=== PATIENT | male | born 1935 | race Caucasian/White ===

== ENCOUNTER 2017-04-25 16:38 | Emergency (ER) | payer OTHER ==
[2017-04-25 17:04] VITALS: BP 132/60; PULSE 60; TEMP 97.9; BMI 28.1
--- NOTE | 2017-04-25 17:35 | PDOC ---
History of Present Illness - General Chief Complaint: Revisit, Lab Variance Stated Complaint: PCP SENT Time Seen by Provider: 04/25/17 17:35 - History of Present Illness Initial Comments: 04/25/17 18:03 Mr. Boogie is an 82 yo male w/ pmh of MR, skin cancer, HTN, and cirrhosis ( side effect of humira) presenting with cousin (patient's historian) on direction of PCP (Dr. Keith Hurtado) for evaluation of urinary frequency with known UTI and elevated WBC levels. Per cousin this began 2 weeks ago and the patient was placed on macrobid on 04/13. This was changed to levoquin on 04/15 after no improvement with the addition of flomax. ABX was changed again on 04/18 to Amoxicillin. Mr. Boogie has not taken his ABX today. Dr. Hurtado would like an ESR as well as repeat labs drawn. Mr. Boogie has no other complaints at this time. The patient denies chest pain, shortness of breath, headache and dizziness. Denies fever, chills, nausea, vomit, diarrhea and constipation. Denies dysuria and hematuria. Allergies: NKDA Past History - Past Medical History Allergies/Adverse Reactions: Allergies Allergy/AdvReac Type Severity Reaction Status Date / Time No Known Allergies Allergy Verified 04/25/17 16:57 Home Medications: Ambulatory Orders Hydrochlorothiazide [Hctz -] 25 mg PO DAILY #0 tablet 12/05/11 Nifedipine [Nifedipine ER] 60 mg PO DAILY #0 tab.er.24 12/05/11 Adalimumab [Humira] 20 mg SQ WEEKLY 12/28/13 Atorvastatin Ca [Lipitor] 20 mg PO HS 12/28/13 Amoxicillin - [Amoxicillin 500mg Capsule -] 500 mg PO BID 04/25/17 Potassium Chloride [Klor-Con 10] 30 mcg PO DAILY 04/25/17 Tamsulosin HCl [Flomax] PO 04/25/17 Cancer: Yes (rt leg soft tissue, basal cell) COPD: No HTN: Yes - Suicide/Smoking/Psychosocial Hx Smoking Status: No Smoking History: Never smoked Have you smoked in the past 12 months: No Number of Cigarettes Smoked Daily: 0 Hx Alcohol Use: No Drug/Substance Use Hx: No Substance Use Type: None Hx Substance Use Treatment: No Review of Systems - Review of Systems Comments:: 04/25/17 18:10 GENERAL/CONSTITUTIONAL: No fever or chills. No weakness. HEAD, EYES, EARS, NOSE AND THROAT: No change in vision. No ear pain or discharge. No sore throat. CARDIOVASCULAR: No chest pain or shortness of breath RESPIRATORY: No cough, wheezing, or hemoptysis. GASTROINTESTINAL: No nausea, vomiting, diarrhea or constipation. GENITOURINARY: +Urinary frequency with urgency as described. MUSCULOSKELETAL: No joint or muscle swelling or pain. No neck or back pain. SKIN: No rash NEUROLOGIC: No headache, vertigo, loss of consciousness, or change in strength/ sensation. ENDOCRINE: No increased thirst. No abnormal weight change HEMATOLOGIC/LYMPHATIC: No anemia, easy bleeding, or history of blood clots. ALLERGIC/IMMUNOLOGIC: No hives or skin allergy. *Physical Exam - Vital Signs Last Vital Signs Temp Pulse Resp BP Pulse Ox 97.9 F 60 19 132/60 99 04/25/17 16:58 04/25/17 16:58 04/25/17 16:58 04/25/17 16:58 04/25/17 16:58 - Physical Exam Comments: 04/25/17 18:10 GENERAL: Awake, alert, and fully oriented, in no acute distress HEAD: No signs of trauma, normocephalic, atraumatic EYES: PERRLA, EOMI, sclera anicteric, conjunctiva clear ENT: Auricles normal inspection, hearing grossly normal, nares patent, oropharynx clear without exudates. Moist mucosa NECK: Normal ROM, supple, no lymphadenopathy, JVD, or masses LUNGS: No distress, speaks full sentences, clear to auscultation bilaterally HEART: Regular rate and rhythm, normal S1 and S2, no murmurs, rubs or gallops, peripheral pulses normal and equal bilaterally. ABDOMEN: Soft, nontender, normoactive bowel sounds. No guarding, no rebound. No masses EXTREMITIES: +Erythema and long standing chronic wound noted to RLE at midcalf and below. NEUROLOGICAL: Cranial nerves II through XII grossly intact. Normal speech, normal gait, no focal sensorimotor deficits SKIN: Warm, Dry, normal turgor, no rashes or lesions noted. ED Treatment Course - LABORATORY CBC & Chemistry Diagram: 04/25/17 18:19 04/25/17 18:19 Medical Decision Making - Medical Decision Making 04/25/17 19:20 Mr. Boogie is an 82 yo male w/ pmh as described who presents for repeat labs per PCP. CBC/CMP/CRP/UA taken for evaluation. Patient signed out to KAREN Roger and Dr. Boo for further care *DC/Admit/Observation/Transfer Diagnosis at time of Disposition: Urinary frequency - Discharge Dispostion Disposition: HOME Condition at time of disposition: Stable - Referrals Referrals: Keith Hurtado MD [Primary Care Provider] - Jaiden Guadalupe MD [Staff Physician] - - Patient Instructions Printed Discharge Instructions: Men With Enlarge Prostates Who Self-manage Their Lower Urinary Tract Sympto, DI for Removal of Foreign Body From Skin - Post Discharge Activity
--- NOTE | 2017-04-25 17:58 | PDOC ---
Attending Attestation - Resident Resident Name: [place] - ED Attending Attestation I have performed the following: I have examined & evaluated the patient, The case was reviewed & discussed with the resident, I agree w/resident's findings & plan, Exceptions are as noted - HPI HPI: 04/25/17 17:58 82y M hx of developemental delay from home, recent urinary symptoms including urinary frequency, was treated as possible UTI by PMD presents for repeat labs. Pt has been doing well, denies any abmoinal pain, fever/chills, diarhea, chesg pain, cough, increased leg swelling. pt has a chronic wound on his LLE. GENERAL: The patient is awake, alert, Nontoxic - in no acute distress. HEAD: Normocephalic, atraumatic. EYES: extraocular movements intact, sclera anicteric, conjunctiva clear. ENT: Normal voice, Moist mucous membranes. NECK: Normal range of motion, supple LUNGS: Breath sounds equal, clear to auscultation bilaterally. No wheezes, no rhonchi, no rales. HEART: Regular rate and rhythm, normal S1 and S2 without murmur, rub or gallop. ABDOMEN: Soft, nontender, normoactive bowel sounds. No guarding, no rebound. . No CVA tenderness EXTREMITIES: mild erythema on his L le with 2 ulcers on anterior luzma lateral approx 2x2cm each, no discharge/flcutance/masses, not warm to touch NEUROLOGICAL: No facial assymetry, Normal speech, PSYCH: Normal mood, normal affect. SKIN: Warm, Dry, normal turgor, 04/25/17 19:[address] ross pt has been treated for a UTI has been having labs tredned that are slightly elevated, wbc 12-->15, CRP increased to 42, sent to the ED for reassessment as pt is a poor historian unclera cause of the pts leukocytosis his Legs are erythemadous but do not appear frankly infected as not warm/tender to touch there are a few ulcers that also do not appear acutely infeted, not draining, or foul smelling will obtai xray to r/o underlying osteo case signed out to evening team to fu and dispo the pt cmp and crp pending.
[2017-04-25 18:37] LABS: BASO % 0.9 % (0-2.0); EOS % 0.2 % (0-4.5); HEMATOCRIT 43.1 % (35.4-49); HEMOGLOBIN 14.6 GM/dL (11.7-16.9); LYMPH % 9.1 % (8-40); MCH 29.7 pg (25.7-33.7); MCHC 33.7 g/dl (32.0-35.9); MONO % 5.2 % (3.8-10.2); NEUT % 84.6 % (42.8-82.8); PLATELET COUNT 261 K/MM3 (134-434); RDW 12.7 % (11.9-15.9); WHITE BLOOD COUNT 14.3 K/mm3 (4.0-10.0)
[2017-04-25 18:39] LABS: URINE APPEARANCE SLCLOUDY; URINE BILIRUBIN NEGATIVE (NEGATIVE); URINE BLOOD 1+ (NEGATIVE); URINE COLOR YELLOW; URINE GLUCOSE (UA) NEGATIVE (NEGATIVE); URINE KETONE TRACE (NEGATIVE); URINE LEUK ESTERASE TRACE (NEGATIVE); URINE NITRITE NEGATIVE (NEGATIVE); URINE PROTEIN NEGATIVE (NEGATIVE); URINE UROBILINOGEN NEGATIVE mg/dL (0.2-1.0)
[2017-04-25 18:45] LABS: URINE MUCUS RARE
[2017-04-25 19:19] LABS: ALBUMIN 3.2 g/dl (3.4-5.0); ALK PHOS 94 U/L (45-117); ANION GAP 10 (8-16); BLOOD UREA NITROGEN 26 mg/dL (7-18); CALCIUM 8.4 mg/dL (8.5-10.1); CHLORIDE 100 mmol/L (98-107); CO2 24 mmol/L (21-32); CREATININE 1.1 mg/dL (0.7-1.3); GLUCOSE,RANDOM 119 mg/dL (74-106); POTASSIUM 3.6 mmol/L (3.5-5.1); SGOT/AST 23 U/L (15-37); SGPT/ALT 31 U/L (12-78); SODIUM 134 mmol/L (136-145); TOT PROT 7.1 g/dl (6.4-8.2)
--- NOTE | 2017-04-25 20:09 | PDOC ---
*Physical Exam - Vital Signs Last Vital Signs Temp Pulse Resp BP Pulse Ox 97.9 F 60 19 132/60 99 04/25/17 16:58 04/25/17 16:58 04/25/17 16:58 04/25/17 16:58 04/25/17 16:58 - Physical Exam Comments: 04/25/17 20:02 PCP: Dr. 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 Boogie was sent here by his PMD, Dr. Hurtado for evaluation of urinary frequency 2 weeks without fever, chills, nausea/vomiting, headaches, dizziness, lightheadedness, chest pain, shortness of breath, abd pain, flank pains, hematuria. Patient had blood work times one week ago with a white count of 13,000. Patient had a repeat labs done 4 days ago and was 15,000 therefore he was sent to the emergency department. Patient had routine renal ultrasound 3 days ago and was informed he has an enlarged prostate and was given 2 tabs of Flomax 3 days ago 0.4 mg daily at bedtime. Patient has no complaints at this time. <Vern Roger - Last Filed: 04/25/17 21:29> - Vital Signs Last Vital Signs Temp Pulse Resp BP Pulse Ox 97.9 F 60 19 132/60 99 04/25/17 16:58 04/25/17 16:58 04/25/17 16:58 04/25/17 16:58 04/25/17 16:58 <Payton Boo - Last Filed: 04/25/17 21:36> ED Treatment Course - LABORATORY CBC & Chemistry Diagram: 04/25/17 18:19 04/25/17 18:19 - ADDITIONAL ORDERS Additional order review: Laboratory Results 04/25/17 04/25/17 18:19 18:19 Sodium 134 L Potassium 3.6 Chloride 100 Carbon Dioxide 24 Anion Gap 10 BUN 26 H D Creatinine 1.1 D Creat Clearance w eGFR > 60 Random Glucose 119 H Calcium 8.4 L Total Bilirubin 1.0 AST 23 D ALT 31 D Alkaline Phosphatase 94 D Total Protein 7.1 Albumin 3.2 L Urine Color Yellow Urine Appearance Slcloudy Urine pH 5.0 Ur Specific Aldrich 1.013 Urine Protein Negative Urine Glucose (UA) Negative Urine Ketones Trace H Urine Blood 1+ H Urine Nitrite Negative Urine Bilirubin Negative Urine Urobilinogen Negative Ur Leukocyte Esterase Trace Urine WBC (Auto) 5 Urine RBC (Auto) 12 Urine Mucus Rare 04/25/17 18:19 RBC 4.90 MCV 88.0 MCHC 33.7 RDW 12.7 MPV 8.0 Neutrophils % 84.6 H D Lymphocytes % 9.1 D Monocytes % 5.2 Eosinophils % 0.2 D Basophils % 0.9 - RADIOLOGY Radiology Studies Ordered: Category Date Time Status LEG TIB/FIB-RIGHT [RAD] Stat Radiology 04/25/17 19:58 Ordered <Vern Roger - Last Filed: 04/25/17 21:29> - LABORATORY CBC & Chemistry Diagram: 04/25/17 18:19 04/25/17 18:19 - ADDITIONAL ORDERS Additional order review: Laboratory Results 04/25/17 04/25/17 04/25/17 18:20 18:19 18:19 Sodium 134 L Potassium 3.6 Chloride 100 Carbon Dioxide 24 Anion Gap 10 BUN 26 H D Creatinine 1.1 D Creat Clearance w eGFR > 60 Random Glucose 119 H Calcium 8.4 L Total Bilirubin 1.0 AST 23 D ALT 31 D Alkaline Phosphatase 94 D C-Reactive Protein 3.1 H Total Protein 7.1 Albumin 3.2 L Urine Color Yellow Urine Appearance Slcloudy Urine pH 5.0 Ur Specific Aldrich 1.013 Urine Protein Negative Urine Glucose (UA) Negative Urine Ketones Trace H Urine Blood 1+ H Urine Nitrite Negative Urine Bilirubin Negative Urine Urobilinogen Negative Ur Leukocyte Esterase Trace Urine WBC (Auto) 5 Urine RBC (Auto) 12 Urine Mucus Rare 04/25/17 18:19 RBC 4.90 MCV 88.0 MCHC 33.7 RDW 12.7 MPV 8.0 Neutrophils % 84.6 H D Lymphocytes % 9.1 D Monocytes % 5.2 Eosinophils % 0.2 D Basophils % 0.9 <Payton Boo - Last Filed: 04/25/17 21:36> Progress Note - Progress Note Progress Note: 2000hrs: Called Dr. Marcelle Hurtado 2107: Called Dr. Jessica Hurtado <Vern Roger - Last Filed: 04/25/17 21:29> Medical Decision Making - Medical Decision Making 04/25/17 21:08 I received pt on [facility] and he is feeling better; labs are normal; CRP has come down [address] and currently 3. Pt has a normal UA. Pt will be sent home with his cousin. 04/25/17 21:26 Pt has a retained staple in his distal RLE above the level of the lateral malleolus. Dr. Hurtado was paged, but no response. 04/25/17 21:35 Dr. Shields made aware of the retained staple in the RLE. <aPyton Boo - Last Filed: 04/25/17 21:36> *DC/Admit/Observation/Transfer <Vern Roger - Last Filed: 04/25/17 21:29> - Discharge Dispostion Admit: No <Payton Boo Last Filed: 04/25/17 21:36> Diagnosis at time of Disposition: Urinary frequency - Discharge Dispostion Disposition: HOME Condition at time of disposition: Stable - Referrals Referrals: Keith Hurtado MD [Primary Care Provider] - Jaiden Guadalupe MD [Staff Physician] - - Patient Instructions Printed Discharge Instructions: Men With Enlarge Prostates Who Self-manage Their Lower Urinary Tract Sympto, DI for Removal of Foreign Body From Skin - Post Discharge Activity Review of Systems - Review of Systems Able to Perform ROS?: Yes Constitutional: No: Chills, Fever, Malaise Gastrointestinal/Abdominal: Yes: no symptoms reported Genitourinary: Yes: frequency (x2 weeks) <AcaciaVern - Last Filed: 04/25/17 21:29> Physical Exam - Physical Exam General Appearance: positive: Nourished, Appropriately Dressed Gastrointestinal/Abdominal: positive: Normal Bowel Sounds, Soft. negative: Tender Male Genital Exam: positive: normal genitalia <AcaciaVern - Last Filed: 04/25/17 21:29>
== END 2017-04-25 22:06 | disposition home or self-care (01) ==
LOC: JER 16:38
DX: R35.0 Frequency of micturition (principal); F88 Other disorders of psychological development; F79 Unspecified intellectual disabilities; N40.0 Benign prostatic hyperplasia without lower urinary tract symptoms; Z87.440 Personal history of urinary (tract) infections; L97.821 Non-pressure chronic ulcer of other part of left lower leg limited to breakdown of skin
CPT/HCPCS: 36415; 73590-TC-RT-FY; 80053; 81003; 81015; 85025; 86140; 87086; 99282-25

== ENCOUNTER 2017-05-17 19:48 | Emergency (ER) | payer OTHER ==
[2017-05-17 19:58] VITALS: BP 146/80; TEMP 98.3; BMI 27.9
[2017-05-17 22:28] LABS: PH,URINE 7.5 (5.0-8.0); URINE BILIRUBIN 1+ (NEGATIVE); URINE BLOOD 3+ (NEGATIVE); URINE COLOR RED; URINE GLUCOSE (UA) NEGATIVE (NEGATIVE); URINE KETONE TRACE (NEGATIVE)
[2017-05-17 22:29] LABS: URINE LEUK ESTERASE TRACE (NEGATIVE); URINE NITRITE POSITIVE (NEGATIVE); URINE PROTEIN 2+ (NEGATIVE)
[2017-05-17 22:30] LABS: URINE APPEARANCE HAZY
[2017-05-17 22:31] LABS: URINE OTHER QNS FOR MICRO
--- NOTE | 2017-05-17 22:41 | PDOC ---
History of Present Illness - General Chief Complaint: Urinary Catheter Problem Stated Complaint: URINARY CATHETER PROBLEM Time Seen by Provider: 05/17/17 21:32 History Source: Patient, Family Exam Limitations: No Limitations - History of Present Illness Initial Comments: 05/17/17 22:32 Patient is a 82-year-old male with history of BPH, MR, HTN, Skin CA with wide excision on the right leg, Cirrohosis due to Humira, brought in by cousin for complaining of blood in the urinary bag. Patient has been ongoing having ongoing prostate issues for about a month with urinary retention. Has been treated for UTIs this past month for different antibiotics last time on antibiotics was 1 week ago. Cystoscopy was done on 05/[address] then removed but on 05/13 has a urodynamic study and berg was replaced. Alphonso is her because she notes that blood was in the bag. PMD: Dr. Jessica Hurtado PMHX: as above PSOCHX: lives with cousin who take care of him GENERAL/CONSTITUTIONAL: [No fever or chills. No weakness. No weight change.] HEAD, EYES, EARS, NOSE AND THROAT: [No change in vision. No ear pain or discharge. No sore throat.] CARDIOVASCULAR: [No chest pain or shortness of breath.] RESPIRATORY: [No cough, wheezing, or hemoptysis.] GASTROINTESTINAL: [No nausea, vomiting, diarrhea or constipation. No rectal bleeding.] GENITOURINARY: [No dysuria, frequency, or change in urination.] MUSCULOSKELETAL: [No joint or muscle swelling or pain. No neck or back pain.] SKIN AND BREASTS: [No rash or easy bruising.] NEUROLOGIC: [No headache, vertigo, loss of consciousness, or loss of sensation.] PSYCHIATRIC: [No depression or anxiety.] ENDOCRINE: [No increased thirst. No abnormal weight change.] HEMATOLOGIC/LYMPHATIC: [No anemia, easy bleeding, or history of blood clots.] ALLERGIC/IMMUNOLOGIC: [No hives or skin allergy. No latex allergy.] GENERAL: [The patient is awake, alert, and fully oriented, in no acute distress. ] HEAD: [Normal with no signs of trauma.] EYES: [Pupils equal, round and reactive to light, extraocular movements intact, sclera anicteric, conjunctiva clear.] ENT: [Ears normal, nares patent, oropharynx clear without exudates. Moist mucous membranes.] NECK: [Normal range of motion, supple without lymphadenopathy, JVD, or masses.] LUNGS: [Breath sounds equal, clear to auscultation bilaterally. No wheezes, and no crackles.] HEART: [Regular rate and rhythm, normal S1 and S2 without murmur, rub.] ABDOMEN: [Soft, nontender, normoactive bowel sounds. No guarding, no rebound. No masses.] : dried blood around the meatus, berg inplace, draining dark urine, EXTREMITIES: [Normal range of motion, no edema. No clubbing or cyanosis. No cords, erythema, or tenderness.] NEUROLOGICAL: [Cranial nerves II through XII grossly intact. Normal speech, normal gait.] PSYCH: [Normal mood, normal affect.] SKIN: [Warm, Dry, normal turgor, no rashes or lesions noted.] Past History - Past Medical History Allergies/Adverse Reactions: Allergies Allergy/AdvReac Type Severity Reaction Status Date / Time No Known Allergies Allergy Verified 05/17/17 19:55 Home Medications: Ambulatory Orders Hydrochlorothiazide [Hctz -] 25 mg PO DAILY #0 tablet 12/05/11 Nifedipine [Nifedipine ER] 60 mg PO DAILY #0 tab.er.24 12/05/11 Adalimumab [Humira] 20 mg SQ WEEKLY 12/28/13 Atorvastatin Ca [Lipitor] 20 mg PO HS 12/28/13 Amoxicillin - [Amoxicillin 500mg Capsule -] 500 mg PO BID 04/25/17 Potassium Chloride [Klor-Con 10] 30 mcg PO DAILY 04/25/17 Tamsulosin HCl [Flomax] PO 04/25/17 Cancer: Yes (rt leg soft tissue, basal cell) COPD: No HTN: Yes Hypercholesterolemia: Yes - Suicide/Smoking/Psychosocial Hx Smoking Status: No Smoking History: Never smoked Have you smoked in the past 12 months: No Number of Cigarettes Smoked Daily: 0 Information on smoking cessation initiated: No Hx Alcohol Use: No Drug/Substance Use Hx: No Substance Use Type: None Hx Substance Use Treatment: No *Physical Exam - Vital Signs Last Vital Signs Temp Pulse Resp BP Pulse Ox 98.3 F 101 H 20 146/80 98 05/17/17 19:56 05/17/17 19:56 05/17/17 19:56 05/17/17 19:56 05/17/17 19:56 ED Treatment Course - ADDITIONAL ORDERS Additional order review: Laboratory Results 05/17/17 22:16 Urine Color Red Urine Appearance Hazy Urine pH 7.5 D Ur Specific Adell 1.020 Urine Protein 2+ H Urine Glucose (UA) Negative Urine Ketones Trace H Urine Blood 3+ H Urine Nitrite Positive Urine Bilirubin 1+ H Urine Urobilinogen 1.0 Ur Leukocyte Esterase Trace Urine WBC (Auto) No Result Required. Urine RBC (Auto) No Result Required. Urine Other Qns for micro Medical Decision Making - Medical Decision Making 05/17/17 22:32 Patient is a 82-year-old male with history of BPH, mentally challenged, brought in by cousin for complaining of blood in the urinary bag. berg flushed with saline, running clear I discussed the physical exam findings, ancillary test results and final diagnoses with the patient. I answered all of the patient's questions. The patient was satisfied with the care received and felt comfortable with the discharge plan and treatment plan. The Patient agrees to follow up with the primary care physician within 24-72 hours. *DC/Admit/Observation/Transfer Diagnosis at time of Disposition: Hematuria Qualifiers: Hematuria type: unspecified type Qualified Code(s): R31.9 - Hematuria, unspecified - Discharge Dispostion Disposition: HOME Condition at time of disposition: Stable - Referrals Referrals: Keith Hurtado MD [Primary Care Provider] - Christina Schulz S.A. [Staff Physician] - - Patient Instructions Printed Discharge Instructions: DI for Hematuria Additional Instructions: Your Discharge Instructions: You must call primary care physician within 24 hours to arrange follow-up. Return to the Emergency Department with any new, persistent or worsening symptoms, for fever, chills, SOB, dizziness or any other concerning changes that may occur. Follow up with urology on Friday for further evaluation. We will call when the culture. - Post Discharge Activity
[2017-05-17 23:01] VITALS: PULSE 80
== END 2017-05-17 23:02 | disposition home or self-care (01) ==
LOC: JER 19:48
PROC: 3C1ZX8Z Irrigation of Indwelling Device using Irrigating Substance, External Approach (ICD-10-PCS; principal; 2017-05-17)
DX: R31.9 Hematuria, unspecified (principal); N40.0 Benign prostatic hyperplasia without lower urinary tract symptoms; F79 Unspecified intellectual disabilities; I10 Essential (primary) hypertension; E78.00 Pure hypercholesterolemia, unspecified; Z85.828 Personal history of other malignant neoplasm of skin
CPT/HCPCS: 81003; 81015; 87086; 87186; 99281-25

== ENCOUNTER 2018-05-09 08:47 | Emergency (ER) | payer OTHER ==
[2018-05-09 09:21] VITALS: BP 107/60; PULSE 81; TEMP 98.6
[2018-05-09 09:59] LABS: BASO % 0.4 % (0-2.0); HEMATOCRIT 34.4 % (35.4-49); HEMOGLOBIN 11.6 GM/dL (11.7-16.9); LYMPH % 6.8 % (8-40); MCH 29.1 pg (25.7-33.7); MCHC 33.8 g/dl (32.0-35.9); MEAN PLT VOLUME 7.5 fl (7.5-11.1); MONO % 4.9 % (3.8-10.2); NEUT % 87.9 % (42.8-82.8); PLATELET COUNT 275 K/MM3 (134-434); RDW 17.3 % (11.9-15.9); WHITE BLOOD COUNT 11.3 K/mm3 (4.0-10.0)
--- NOTE | 2018-05-09 10:13 | PDOC ---
History of Present Illness - General Chief Complaint: Nasal Bleeding Stated Complaint: NOSE BLEED Time Seen by Provider: 05/09/18 09:20 - History of Present Illness Initial Comments: 05/09/18 10:08 83 y/o male here in ED for evaluation of two episodes of epistaxis this morning. PT's nose is not bleeding at present. PT feels fine and is not currently offering any complaints. Timing/Duration: 1-3 hours Severity: mild Past History - Past Medical History Allergies/Adverse Reactions: Allergies Allergy/AdvReac Type Severity Reaction Status Date / Time No Known Allergies Allergy Verified 05/09/18 09:53 Home Medications: Ambulatory Orders Aa/Hydrolyzed Collagen, Whey [Lps Neutral Flavor Liquid] 30 ml PO BID 05/09/18 Amoxicillin/Potassium Clav [Augmentin 500-125 Tablet] 1 each PO BID #10 tablet 05/09/18 Ascorbic Acid 500 mg PO DAILY 05/09/18 Calcium Alginate [Chano] 1 each TP DAILY 05/09/18 Cholecalciferol (Vitamin D3) [Vitamin D] 2,000 unit PO DAILY 05/09/18 Cran-B-Otc 30 ml PO BID 05/09/18 Escitalopram Oxalate [Lexapro -] 10 mg PO DAILY 05/09/18 Finasteride [Proscar -] 5 mg PO DAILY 05/09/18 Furosemide [Lasix -] 20 mg PO DAILY 05/09/18 Metoprolol Succinate [Toprol Xl] 25 mg PO DAILY 05/09/18 Mirtazapine [Remeron -] 15 mg PO DAILY 05/09/18 Multivit-Minerals/Ferrous Fum [Multivitamin Liquid] 15 ml PO DAILY 05/09/18 Nifedipine ER [Procardia Xl -] 90 mg PO DAILY 05/09/18 Potassium Chloride [Potassium Chloride Oral Liquid] 40 meq PO DAILY 05/09/18 Rivaroxaban [Xarelto -] 20 mg PO DAILY 05/09/18 Secukinumab [Cosentyx Syringe] 150 mg SQ DAILY 05/09/18 Zinc Sulfate [Zinc-220] 220 mg PO DAILY 05/09/18 Cancer: Yes (rt leg soft tissue, basal cell) COPD: No HTN: Yes Hypercholesterolemia: Yes - Immunization History Immunization Up to Date: Yes - Suicide/Smoking/Psychosocial Hx Smoking Status: No Smoking History: Unknown if ever smoked Have you smoked in the past 12 months: No Number of Cigarettes Smoked Daily: 0 Information on smoking cessation initiated: No Hx Alcohol Use: No Drug/Substance Use Hx: No Substance Use Type: None Hx Substance Use Treatment: No Review of Systems - Review of Systems Constitutional: No: Chills, Fever HEENTM: Yes: Nose Bleeding Respiratory: No: Cough, Shortness of Breath, SOB at Rest Cardiac (ROS): No: Chest Pain, Palpitations, Chest Tightness ABD/GI: No: Abd. Pain w/ defecation, Nausea, Vomiting : Yes: Other (berg cathedar in place with yellow urine noted) Musculoskeletal: No: Back Pain Integumentary: Yes: Other (pt with superficial healed abrasions noted on various parts of his skin) Neurological: No: Headache, Numbness, Dizziness *Physical Exam - Vital Signs Last Vital Signs Temp Pulse Resp BP Pulse Ox 98.6 F 81 20 107/60 95 05/09/18 09:01 05/09/18 09:01 05/09/18 09:01 05/09/18 09:01 05/09/18 09:29 05/09/18 10:11 - Physical Exam General Appearance: Yes: Nourished, Thin. No: Apparent Distress HEENT: positive: GUI, Normal Voice, Tonsillar Erythema (mild erythema of left nostril). negative: Nasal Congestion Neck: positive: Supple. negative: Tender midline Respiratory/Chest: positive: Lungs Clear, Normal Breath Sounds. negative: Respiratory Distress Cardiovascular: positive: Regular Rhythm, Regular Rate, S1, S2 Gastrointestinal/Abdominal: positive: Normal Bowel Sounds, Flat, Soft. negative : Guarding, Rebound Extremity: positive: Normal Capillary Refill Integumentary: positive: Other (superficial healed abrasions) Neurologic: positive: Fully Oriented, Alert, Normal Mood/Affect Moderate Sedation - Procedure Monitoring Vital Signs: Procedure Monitoring Vital Signs Temperature 98.6 F 05/09/18 09:01 Pulse Rate 81 05/09/18 09:01 Respiratory Rate 20 05/09/18 09:01 Blood Pressure 107/60 05/09/18 09:01 O2 Sat by Pulse Oximetry (%) 95 05/09/18 09:29 ED Treatment Course - LABORATORY CBC & Chemistry Diagram: 05/09/18 09:45 05/09/18 09:45 - ADDITIONAL ORDERS Additional order review: 05/09/18 09:45 RBC 4.00 MCV 86.0 MCHC 33.8 RDW 17.3 H MPV 7.5 Neutrophils % 87.9 H D Lymphocytes % 6.8 L D Monocytes % 4.9 Eosinophils % 0.0 D Basophils % 0.4 Medical Decision Making - Medical Decision Making 05/09/18 10:21 83 y/o male here in [facility] [place] [facility] [place] of intermittent nose bleeds, PT is not bleeding at present and is currently offering no complaints. Will check basic labs and reevaluate for transfer back to long term. Pt is no xeralto due to h /o dvt, vitals are stable at present. Pt with mildly elevated wbc with left shift noted from labs done on 05-08-18. Pt's wbc was 6.7 yesterday and today was 11.3, cxr shows early infiltrate vs atelectasis and ua shows 3 + leukocytes. No further nose bleeds noted.Pt is stable for dc home with out pt f/u with pcp, will give 10 days of augmentin to treat early infiltrate and or uti pt with chronic indwelling berg cathedar. Pt to have humidified air at long term if possible to prevent further nose bleeds. Return to ED as needed. Pt happy to be returningto the long term. 05/09/18 14:08 *DC/Admit/Observation/Transfer Diagnosis at time of Disposition: Epistaxis, recurrent, UTI (urinary tract infection), Infiltrate of lung present on chest x-ray - Discharge Dispostion Disposition: RETIREMENT FACILITY Condition at time of disposition: Stable Decision to Admit order: No - Prescriptions Prescriptions: Amoxicillin/Potassium Clav [Augmentin 500-125 Tablet] 1 each PO BID #10 tablet - Referrals Referrals: Iza Gardner MD [Primary Care Provider] - - Patient Instructions - Post Discharge Activity
[2018-05-09 10:27] LABS: ANION GAP 9 MMOL/L (8-16); BLOOD UREA NITROGEN 56 mg/dL (7-18); CALCIUM 8.5 mg/dL (8.5-10.1); CHLORIDE 93 mmol/L (98-107); CO2 28 mmol/L (21-32); CREATININE 1.6 mg/dL (0.55-1.3); GLUCOSE,RANDOM 114 mg/dL (74-106); POTASSIUM 4.9 mmol/L (3.5-5.1); SODIUM 130 mmol/L (136-145)
[2018-05-09 10:36] LABS: INR 1.81 (0.83-1.09); PROTHROMBIN TIME (PATIENT) 21.5 SEC (9.7-13.0)
[2018-05-09 11:21] LABS: URINE APPEARANCE SLCLOUDY; URINE BILIRUBIN NEGATIVE (<2.0 mg/dL); URINE COLOR YELLOW; URINE GLUCOSE (UA) NEGATIVE (NEGATIVE); URINE KETONE TRACE (NEGATIVE); URINE LEUK ESTERASE 3+ (NEGATIVE); URINE NITRITE NEGATIVE (NEGATIVE); URINE PROTEIN 3+ (NEGATIVE)
[2018-05-09 11:46] LABS: URINE MUCUS RARE
[2018-05-09 14:17] LABS: ANISOCYTOSIS 2+; MACROCYTOSIS 1+; OVALOCYTE 1+; PLATELET ESTIMATE NORMAL; TEAR DROP CELLS 1+
[2018-05-09 16:15] LABS: ALBUMIN 2.6 g/dl (3.4-5.0); ALK PHOS 124 U/L (45-117); BILIRUBIN,TOTAL 0.5 mg/dL (0.2-1); SGOT/AST 10 U/L (15-37); SGPT/ALT 18 U/L (13-61); TOT PROT 7.4 g/dl (6.4-8.2)
== END 2018-05-09 14:43 ==
LOC: JER 08:47
DX: R04.0 Epistaxis (principal); N39.0 Urinary tract infection, site not specified; B96.89 Other specified bacterial agents as the cause of diseases classified elsewhere; Z93.50 Unspecified cystostomy status; R91.8 Other nonspecific abnormal finding of lung field
CPT/HCPCS: 36415; 71045-TC-FY; 80048; 80053; 81003; 81015; 85025; 85610; 87086; 87186; 99282-25

== ENCOUNTER 2018-05-10 09:38 | Inpatient (IN) | payer OTHER ==
--- NOTE | 2018-05-10 09:55 | PDOC ---
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 Patient denies any other symptoms. Patient was seen yesterday in the ER for 2x episodes of epitaxis. pt notes her sob started acutely this morning, but history was otherwise limited due to his actue respirtoary distress The patient denies chest pain, cough, hemoptysis, leg swelling, headache and dizziness. Denies fever, chills, nausea, vomit, diarrhea and constipation. Denies dysuria, frequency, urgency and hematuria. Allergies: NKA Social history: No reported - Physicial Exam PE: 05/10/18 10:19 GENERAL: The patient is awake, alert, and looking around, in acute respiratory distress, cachectic appearing HEAD: Normocephalic, atraumatic. EYES: extraocular movements intact, sclera anicteric, conjunctiva clear. ENT: Normal voice, Moist mucous membranes. NECK: Normal range of motion, supple LUNGS: deminished breath sounds in R base, in acute respiratory distress, unabl eto speak HEART: Regular rate and rhythm, normal S1 and S2 without murmur, rub or gallop. ABDOMEN: Soft, nontender, No guarding, no rebound. . No CVA tenderness EXTREMITIES: Normal range of motion, no edema. NEUROLOGICAL: No facial assymetry, Normal speech, PSYCH: Normal mood, normal affect. 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 She was tachypneic, hypoxic to the 80s he had some diminished breath sounds in the right base. I was bedside immediately due to the emergent nature of the patient The patient was started on BiPAP with mild improvement of his saturations and tachypnea, though he still appeared uncomfortable. The patient was noted be febrile asepsis or set was obtained. ddx for the patient's symptoms includes but is not limited to pneumonia, pleural effusion, pulmonary embolism, cardiac disease, Pericardial effusion Sepsis or set obtained 05/10/18 11:32 The patient's chest x-ray noted from right pleural effusion/versus pneumonia The patient's VBG noted for low pO2, his chemistry was notable for hyperkalemic at 5.8, there is also neutropenia that is worse from his lab studies from yesterday. His creatinine is elevated 1.7 with BUN 67 - I suspect this might be prerenal azotemia, we'll hydrate. Patient lactic acid is also 4.5 - this may be from sepsis versus his acute respiratory distress we'll continue to hydrate and will recheck his lactic acid. We will obtain a CT of his chest to further evaluate his effusion and possible underlying pneumonia, as his creatinine is acutely elevated to 1.7 we'll defer a contrast load as the patient is already being treated for a pulmonary embolism. The patient seems to be doing that or with his respiratory rate. Continue to monitor if he decompensates consider intubation. 05/10/18 13:58 CT noted for moderate to large effusions on l lung and small/moderate on right lung with compressive atelectasis pt rr improving with bipap will admit to icu for further management case dw dr hoover and dr. novoa. accepted to ICU CRITICAL CARE DOCUMENTATION: I spent ~35 minutes of Critical Care time, excluding separately billable procedures, involving high complexity decision making to assess, manipulate and support vital system function(s) to treat single or multiple vital organ system failure and/or to prevent further life threatening deterioration of the patient' s condition. Heart Score/ECG Review - ECG Impressions Comment:: 05/10/18 11:35 Twelve-lead EKG was performed and reviewed by me. There is normal sinus rhythm with a rate of 86 Left axis deviation Q waves in inferior leads
[2018-05-10] MEDS ORDERED: ACETAMINOPHEN 1000 MG/100 ML VIAL (NON FORMULARY) IVPB ONE (09:58)
--- NOTE | 2018-05-10 09:58 | PDOC ---
History of Present Illness - General Chief Complaint: Shortness of Breath Stated Complaint: RESPIRATORY Time Seen by Provider: 05/10/18 09:53 History Source: EMS Exam Limitations: Clinical Condition - History of Present Illness Initial Comments: 05/10/18 09:56 83 year old male with PMH intellectual delay, HTN, HLD, atrial fibrillation on Xarelto, PE, DVT, psoriasis, cirrhosis, BPH, failure to thrive BIBA to ED from [facility] for acute SOB. Pt was hypoxic upon EMS presentation and placed on O2. Upon presentation to ED pt was hypoxic 88% on 8L O2. Pt admitted to SOB. Pt denied chest pain, nausea, cough, vomiting, back pain, headache, weakness, numbness or any other complaints. Past History - Past Medical History Allergies/Adverse Reactions: Allergies Allergy/AdvReac Type Severity Reaction Status Date / Time No Known Allergies Allergy Verified 05/10/18 09:54 Home Medications: Ambulatory Orders Ascorbic Acid [Vitamin C -] 500 mg PO DAILY 05/10/18 Cholecalciferol (Vitamin D3) [D-2000] 2,000 unit PO DAILY 05/10/18 Escitalopram Oxalate [Lexapro -] 10 mg PO DAILY 05/10/18 Finasteride 5 mg PO DAILY 05/10/18 Furosemide [Lasix -] 20 mg PO DAILY 05/10/18 Furosemide [Lasix -] 20 mg PO DAILY 05/10/18 Metoprolol Succinate 25 mg PO DAILY 05/10/18 Mirtazapine [Remeron -] 15 mg PO DAILY 05/10/18 Multivit-Minerals/Ferrous Fum [Multivitamin Liquid] 15 ml PO DAILY 05/10/18 Nifedipine ER [Procardia Xl -] 90 mg PO DAILY 05/10/18 Ondansetron Injection [Zofran Injection] 2 mg IM Q8H 05/10/18 Piperacillin Sodium/Tazobactam [Zosyn 3.375 Gram Vial] 3.375 gm IV ONCE Potassium Chloride 30 ml PO DAILY 05/10/18 Rivaroxaban [Xarelto -] 20 mg PO DAILY 05/10/18 Secukinumab [Cosentyx Pen] 150 mg SQ Q28D 05/10/18 Sucralfate [Carafate -] 1 gm PO DAILY 05/10/18 Zinc Sulfate 220 mg PO DAILY 05/10/18 Cancer: Yes (rt leg soft tissue, basal cell) COPD: No HTN: Yes Hypercholesterolemia: Yes - Immunization History Immunization Up to Date: Yes - Suicide/Smoking/Psychosocial Hx Smoking Status: No Smoking History: Never smoked Have you smoked in the past 12 months: No Number of Cigarettes Smoked Daily: 0 Hx Alcohol Use: No Drug/Substance Use Hx: No Substance Use Type: None Hx Substance Use Treatment: No Review of Systems - Review of Systems Able to Perform ROS?: Yes Comments:: 05/10/18 10:00 General: denied fever, chills, night sweats, generalized weakness. HEENT: denied sore throat, rhinorrhea, ear pain. Heart: denied chest pain, palpitations, syncope, diaphoresis. Respiratory: admitted to SOB. denied cough, sputum production, hemoptysis. Abdomen: denied abdominal pain, nausea, vomiting, diarrhea, constipation, blood in stool. : denied dysuria, increased urinary frequency, hematuria, urinary incontinence , flank pain. Back: denied back pain. Musculoskeletal: denied joint pain, muscle pain, joint swelling. Neurological: denied headache, dizziness, numbness, tingling, weakness. Skin: denied rash, laceration, abrasion. *Physical Exam - Physical Exam Comments: 05/10/18 10:00 Constitutional: frail. HEENT: head is normocephalic, atraumatic. EOMI. PERRLA. Neck: supple. Full ROM. Heart: regular rhythm. no murmurs, rubs or gallops. Lungs: poor inspiratory effort. unable to speak full sentences. no crackles, rhonchi or wheezing. no stridor. Abdomen: soft, nontender. normal bowel sounds. no rebound, guarding, masses. Pelvis: indwelling berg catheter Extremities: Peripheral pulses intact. No lower extremity edema. Neurological: CN 2-12 grossly intact. Moves all four extremities. Psych: awake, alert. follows commands. answering questions appropriately, with yes or no answers. Skin: dressing to right lower leg. no sacral ulcer. ED Treatment Course - LABORATORY CBC & Chemistry Diagram: 05/11/18 05:30 05/11/18 05:30 Medical Decision Making - Medical Decision Making 05/10/18 10:03 83 year old male with above PMH BIBA to ED from [facility] for acute SOB. Initial Vital Signs Temp Pulse Resp BP Pulse Ox 101.3 F H 93 H 28 H 169/132 H 79 L 05/10/18 09:55 05/10/18 09:55 05/10/18 09:55 05/10/18 09:55 05/10/18 09:55 Febrile. - Rectal temp Borderline tachycardia. Tachypnea. Mild hypertension. Hypoxia on 8L O2 ventimask. -Pt was placed on BIPAP with improvement of saturation to 90%. Labs ordered: CBC, CMP, troponin, UA/UC, blood cultures, VBG, influenza testing Imaging ordered: CXR Medications ordered: tylenol IV EKG performed at 1130: rate 86, left axis deviation, Q waves in anterior leads, low voltage. 05/10/18 11:32 CBC WBC 9.5 K/mm3 (4.0-10.0) 05/10/18 10:00 RBC 4.04 M/mm3 (4.00-5.60) 05/10/18 10:00 Hgb 11.8 GM/dL (11.7-16.9) 05/10/18 10:00 Hct 35.3 % (35.4-49) L 05/10/18 10:00 MCV 87.4 fl (80-96) 05/10/18 10:00 MCH 29.3 pg (25.7-33.7) 05/10/18 10:00 MCHC 33.5 g/dl (32.0-35.9) 05/10/18 10:00 RDW 17.9 % (11.9-15.9) H 05/10/18 10:00 Plt Count 320 K/MM3 (134-434) 05/10/18 10:00 MPV 8.2 fl (7.5-11.1) 05/10/18 10:00 Absolute Neuts (auto) 8.2 K/mm3 (1.5-8.0) H 05/10/18 10:00 Neutrophils % 85.9 % (42.8-82.8) H 05/10/18 10:00 Lymphocytes % 11.7 % (8-40) D 05/10/18 10:00 Monocytes % 2.0 % (3.8-10.2) L 05/10/18 10:00 Eosinophils % 0.0 % (0-4.5) 05/10/18 10:00 Basophils % 0.4 % (0-2.0) 05/10/18 10:00 Nucleated RBC % 0 % (0-0) 05/10/18 10:00 No leukocytosis. No anemia. Mild left shift. CMP Sodium 126 mmol/L (136-145) L 05/10/18 10:00 Potassium 5.8 mmol/L (3.5-5.1) H 05/10/18 10:00 Chloride 90 mmol/L (98-107) L 05/10/18 10:00 Carbon Dioxide 24 mmol/L (21-32) 05/10/18 10:00 Anion Gap 11 MMOL/L (8-16) 05/10/18 10:00 BUN 67 mg/dL (7-18) H 05/10/18 10:00 Creatinine 1.7 mg/dL (0.55-1.3) H 05/10/18 10:00 Creat Clearance w eGFR 38.88 (>60) 05/10/18 10:00 Random Glucose 90 mg/dL (74-106) 05/10/18 10:00 Lactic Acid 4.6 mmol/L (0.4-2.0) H* 05/10/18 10:00 Calcium 8.3 mg/dL (8.5-10.1) L 05/10/18 10:00 Total Bilirubin 1.1 mg/dL (0.2-1) H 05/10/18 10:00 AST 14 U/L (15-37) L 05/10/18 10:00 ALT 21 U/L (13-61) 05/10/18 10:00 Alkaline Phosphatase 102 U/L (45-117) 05/10/18 10:00 Troponin I < 0.02 ng/ml (0.00-0.05) 05/10/18 10:00 Total Protein 5.7 g/dl (6.4-8.2) L 05/10/18 10:00 Albumin 2.3 g/dl (3.4-5.0) L 05/10/18 10:00 Hyponatremia - Worse than usual baseline Hyperkalemia KYMBERLY Lactic acidosis No transaminitis Normal troponin Influenza testing negative. VBG shows hypoxia, otherwise normal. CXR shows opacity at right base. Pt is anticoagulated, PE unlikley, and pt is already taking the treatment. IV contrast at risk to increase nephro injury in KYMBERLY. Medications ordered: normal saline 1000 cc bolus, vancomcyin Imaging ordered: CT chest noncon Zosyn held, pt received dose this AM at nursing facility for pneumonia. 05/10/18 12:56 Urine Test Results Urine Color [place] 05/10/18 10:00 Urine Appearance Cloudy 05/10/18 10:00 Urine pH 5.0 (5.0-8.0) 05/10/18 10:00 Ur Specific [place] 1.023 (1.010-1.035) 05/10/18 10:00 Urine Protein 2+ (NEGATIVE) H 05/10/18 10:00 Urine Glucose (UA) Negative (NEGATIVE) 05/10/18 10:00 Urine Ketones Negative (NEGATIVE) 05/10/18 10:00 Urine Blood 2+ (NEGATIVE) H 05/10/18 10:00 Urine Nitrite Negative (NEGATIVE) 05/10/18 10:00 Urine Bilirubin Negative (<2.0 mg/dL) 05/10/18 10:00 Ur Leukocyte Esterase 3+ (NEGATIVE) H 05/10/18 10:00 Ur Epithelial Cells Rare /HPF (FEW) 05/10/18 10:00 Urine Bacteria Rare /hpf (NONE SEEN) 05/10/18 10:00 Urine Mucus Rare 05/10/18 10:00 UTI. 05/10/18 13:[address] Pt was seen and evaluated by ICU team, Dr. Nicholson and Dr. Mcgee, who recommended ICU admission for unstable blood pressure. Pt was transported to the ICU on the monitor. *DC/Admit/Observation/Transfer Diagnosis at time of Disposition: Respiratory distress, Febrile - Discharge Dispostion Condition at time of disposition: Stable Decision to Admit order: Yes - Referrals - Patient Instructions - Post Discharge Activity
[2018-05-10] MEDS ORDERED: ACETAMINOPHEN INJECTION 100 ML IVPB ONE (10:13)
[2018-05-10 10:36] LABS: VENOUS PC02 38.5 mmHg (38-52); VENOUS PH 7.39 (7.32-7.42)
[2018-05-10 10:38] LABS: BASO % 0.4 % (0-2.0); HEMATOCRIT 35.3 % (35.4-49); HEMOGLOBIN 11.8 GM/dL (11.7-16.9); LYMPH % 11.7 % (8-40); MCH 29.3 pg (25.7-33.7); MCHC 33.5 g/dl (32.0-35.9); MEAN CELL VOLUME 87.4 fl (80-96); MEAN PLT VOLUME 8.2 fl (7.5-11.1); NEUT % 85.9 % (42.8-82.8); PLATELET COUNT 320 K/MM3 (134-434); RBC 4.04 M/mm3 (4.00-5.60); RDW 17.9 % (11.9-15.9); WHITE BLOOD COUNT 9.5 K/mm3 (4.0-10.0)
[2018-05-10 10:45] LABS: VENOUS PO2 16.3 mmHg (28-48)
[2018-05-10 10:47] LABS: INR 1.88 (0.83-1.09); PROTHROMBIN TIME (PATIENT) 22.3 SEC (9.7-13.0)
[2018-05-10 10:50] LABS: ACTIVATED PTT 39.3 SECONDS (25.2-36.5)
[2018-05-10] MEDS ORDERED: SODIUM CHLORIDE 1,000 ML IV STA ×3 (11:00→15:23)
[2018-05-10 11:26] LABS: ALBUMIN 2.3 g/dl (3.4-5.0); ALK PHOS 102 U/L (45-117); ANION GAP 11 MMOL/L (8-16); BILIRUBIN,TOTAL 1.1 mg/dL (0.2-1); BLOOD UREA NITROGEN 67 mg/dL (7-18); CALCIUM 8.3 mg/dL (8.5-10.1); CHLORIDE 90 mmol/L (98-107); CO2 24 mmol/L (21-32); CREATININE 1.7 mg/dL (0.55-1.3); GLUCOSE,RANDOM 90 mg/dL (74-106); POTASSIUM 5.8 mmol/L (3.5-5.1); SGOT/AST 14 U/L (15-37); SGPT/ALT 21 U/L (13-61); SODIUM 126 mmol/L (136-145); TOT PROT 5.7 g/dl (6.4-8.2)
[2018-05-10] MEDS ORDERED: VANCOMYCIN 1,000 MG in DEXTROSE 5%-WATER - 250 ML IVPB ONE (11:30)
[2018-05-10] MEDS ORDERED: PIPERACILLIN/TAZOB 4.5 GM 4.5 GM in DEXTROSE 5%-WATER 100 ML IVPB ONE (11:30)
[2018-05-10 11:37] LABS: URINE APPEARANCE CLOUDY; URINE BILIRUBIN NEGATIVE (<2.0 mg/dL); URINE COLOR AMBER; URINE GLUCOSE (UA) NEGATIVE (NEGATIVE); URINE KETONE NEGATIVE (NEGATIVE); URINE LEUK ESTERASE 3+ (NEGATIVE); URINE NITRITE NEGATIVE (NEGATIVE); URINE PROTEIN 2+ (NEGATIVE); URINE UROBILINOGEN NEGATIVE mg/dL (0.2-1.0)
[2018-05-10 11:54] LABS: EPI CELLS RARE /HPF (FEW); URINE BACTERIA RARE /hpf (NONE SEEN); URINE MUCUS RARE; YEAST FEW
[2018-05-10] MEDS ORDERED: VANCOMYCIN 1 GRAM (PRE-DOCKED) 1,000 MG/250 ML BAG IVPB ONE (11:56)
--- NOTE | 2018-05-10 13:56 | CONSULT ---
Consultation: REQUESTING PROVIDER: CONSULT REQUEST: We have been asked to medically evaluate this patient for ICU admission. HISTORY OF PRESENT ILLNESS: Patient is an 83 year old male from [facility] with history of cognitive impairment , hypertension, Afib and pulmonary embolism (on Xarelto) skin cancer s/p right lower extremity excision, chronic urinary retention, UTI secondary to enlarged prostate presented to ED with complaint of shortness of breath. Patient was seen at [facility] ED yesterday for epistaxis, however was sent back to SNF later same day. Upon my encounter patient denies shortness of breath, cough, chest pain, tightness, hemoptysis. He denies headache, subjective fevers, or chills. Unable to obtain further history due to patient's minimal responsiveness. REVIEW OF SYSTEMS: CONSTITUTIONAL: Absent: fever, chills, diaphoresis, generalized weakness, malaise, loss of appetite, weight change HEENT: Absent: rhinorrhea, nasal congestion, throat pain, throat swelling, difficulty swallowing, mouth swelling, ear pain, eye pain, visual changes CARDIOVASCULAR: Absent: chest pain, syncope, palpitations, irregular heart rate, lightheadedness , peripheral edema RESPIRATORY: Admits: shortness of breath (resolved). Absent: cough, dyspnea with exertion, orthopnea, wheezing, stridor, hemoptysis GASTROINTESTINAL: Absent: abdominal pain, abdominal distension, nausea, vomiting, diarrhea, constipation, melena, hematochezia GENITOURINARY: Absent: dysuria, frequency, urgency, hesitancy, hematuria, flank pain, genital pain MUSCULOSKELETAL: Absent: myalgia, arthralgia, joint swelling, back pain, neck pain SKIN: Absent: rash, itching, pallor HEMATOLOGIC/IMMUNOLOGIC: Absent: easy bleeding, easy bruising, lymphadenopathy, frequent infections ENDOCRINE: Absent: unexplained weight gain, unexplained weight loss, heat intolerance, cold intolerance NEUROLOGIC: Absent: headache, focal weakness or paresthesias, dizziness, unsteady gait, seizure, mental status changes, bladder or bowel incontinence PSYCHIATRIC: Absent: anxiety, depression, suicidal or homicidal ideation, hallucinations. PHYSICAL EXAMINATION Vital Signs - 24 hr 05/10/18 05/10/18 05/10/18 09:45 09:55 09:57 Temperature 101.3 F H Pulse Rate 93 H Pulse Rate [ 90 Apical] Respiratory 28 H 36 H Rate Blood Pressure 169/132 H Blood Pressure 194/139 H [Left Arm] O2 Sat by Pulse 80 L 79 L 82 L Oximetry (%) 05/10/18 05/10/18 05/10/18 10:00 10:41 10:49 Temperature Pulse Rate Pulse Rate [ 84 88 Apical] Respiratory 29 H 31 H Rate Blood Pressure Blood Pressure 85/54 L 98/62 [Left Arm] O2 Sat by Pulse 60 L 86 L 95 Oximetry (%) 05/10/18 05/10/18 05/10/18 10:57 11:17 11:30 Temperature 101.3 F H Pulse Rate Pulse Rate [ 88 84 82 Apical] Respiratory 31 H 25 H 28 H Rate Blood Pressure Blood Pressure 98/62 97/61 90/56 L [Left Arm] O2 Sat by Pulse 95 98 98 Oximetry (%) 05/10/18 05/10/18 12:00 13:17 Temperature 99.9 F H Pulse Rate Pulse Rate [ 82 Apical] Respiratory 26 H Rate Blood Pressure Blood Pressure 109/66 [Left Arm] O2 Sat by Pulse 100 Oximetry (%) GENERAL: Awake, alert, oriented X0 on Bilevel ventilation. No acute distress. Minimally responsive, answering basic questions by nodding head. HEAD: Normocephalic, atraumatic EYES: PERRL, EOMI, sclera anicteric, conjunctiva clear. EARS, NOSE, THROAT: Oropharynx clear without exudates. Dry mucous membranes. NECK: Supple. Right sided central venous catheter placed. LUNGS: Breath sounds equal, clear to auscultation bilaterally. No wheezes, and no crackles. Using accessory muscles of respiration. HEART: Irregular rate and rhythm, normal S1 and S2 without murmur, rub or gallop. ABDOMEN: Soft, nontender, not distended, normoactive bowel sounds, no guarding, no rebound, no masses. No hepatomegaly or splenomegaly. Suprapubic catheter noted, insertion site clean, dry, non draining. UPPER EXTREMITIES: 2+ radial pulses bilaterally. No peripheral edema. LOWER EXTREMITIES: 1+ dorsalis pedis pulses bilaterally. No calf tenderness. No peripheral edema. NEUROLOGICAL: Patient freely moves bilateral upper and lower extremities. SKIN: Warm, dry. Numerous excoriations noted on right lower extremity, bandaged. Laboratory Results - last 24 hr 05/10/18 05/10/18 05/10/18 10:00 10:00 10:00 WBC 9.5 RBC 4.04 Hgb 11.8 Hct 35.3 L MCV 87.4 MCH 29.3 MCHC 33.5 RDW 17.9 H Plt Count 320 MPV 8.2 Absolute Neuts (auto) 8.2 H Neutrophils % 85.9 H Lymphocytes % 11.7 D Monocytes % 2.0 L Eosinophils % 0.0 Basophils % 0.4 Nucleated RBC % 0 PT with INR 22.30 H INR 1.88 H PTT (Actin FS) 39.3 H VBG pH POC VBG pCO2 POC VBG pO2 Mixed VBG HCO3 Sodium Potassium Chloride Carbon Dioxide Anion Gap BUN Creatinine Creat Clearance w eGFR Random Glucose Lactic Acid Calcium Total Bilirubin AST ALT Alkaline Phosphatase Troponin I Total Protein Albumin Urine Color [place] Urine Appearance Cloudy Urine pH 5.0 Ur Specific [place] 1.023 Urine Protein 2+ H Urine Glucose (UA) Negative Urine Ketones Negative Urine Blood 2+ H Urine Nitrite Negative Urine Bilirubin Negative Urine Urobilinogen Negative Ur Leukocyte Esterase 3+ H Urine WBC (Auto) 89 Urine RBC (Auto) 24 Ur Epithelial Cells Rare Urine Bacteria Rare Urine Mucus Rare Urine Yeast Few Influenza A (Rapid) Influenza B (Rapid) 05/10/18 05/10/18 05/10/18 10:00 10:00 10:00 WBC RBC Hgb Hct MCV MCH MCHC RDW Plt Count MPV Absolute Neuts (auto) Neutrophils % Lymphocytes % Monocytes % Eosinophils % Basophils % Nucleated RBC % PT with INR INR PTT (Actin FS) VBG pH 7.39 POC VBG pCO2 38.5 POC VBG pO2 16.3 L* D Mixed VBG HCO3 22.6 Sodium 126 L Potassium 5.8 H Chloride 90 L Carbon Dioxide 24 Anion Gap 11 BUN 67 H Creatinine 1.7 H Creat Clearance w eGFR 38.88 Random Glucose 90 Lactic Acid 4.6 H* Calcium 8.3 L Total Bilirubin 1.1 H AST 14 L ALT 21 Alkaline Phosphatase 102 Troponin I Total Protein 5.7 L Albumin 2.3 L Urine Color Urine Appearance Urine pH Ur Specific [place] Urine Protein Urine Glucose (UA) Urine Ketones Urine Blood Urine Nitrite Urine Bilirubin Urine Urobilinogen Ur Leukocyte Esterase Urine WBC (Auto) Urine RBC (Auto) Ur Epithelial Cells Urine Bacteria Urine Mucus Urine Yeast Influenza A (Rapid) Influenza B (Rapid) 05/10/18 05/10/18 10:00 10:00 WBC RBC Hgb Hct MCV MCH MCHC RDW Plt Count MPV Absolute Neuts (auto) Neutrophils % Lymphocytes % Monocytes % Eosinophils % Basophils % Nucleated RBC % PT with INR INR PTT (Actin FS) VBG pH POC VBG pCO2 POC VBG pO2 Mixed VBG HCO3 Sodium Potassium Chloride Carbon Dioxide Anion Gap BUN Creatinine Creat Clearance w eGFR Random Glucose Lactic Acid Calcium Total Bilirubin AST ALT Alkaline Phosphatase Troponin I < 0.02 Total Protein Albumin Urine Color Urine Appearance Urine pH Ur Specific [place] Urine Protein Urine Glucose (UA) Urine Ketones Urine Blood Urine Nitrite Urine Bilirubin Urine Urobilinogen Ur Leukocyte Esterase Urine WBC (Auto) Urine RBC (Auto) Ur Epithelial Cells Urine Bacteria Urine Mucus Urine Yeast Influenza A (Rapid) Negative Influenza B (Rapid) Negative Active Medications Generic Name Dose Route Start Last Admin Trade Name Freq PRN Reason Stop Dose Admin Sodium Chloride 1,000 mls @ 1,000 mls/hr 05/10/18 13:41 Normal Saline - IV 05/10/18 14:40 ASDIR STA ASSESSMENT/PLAN: Patient is an 83 year old male from [facility] with history of cognitive impairment , hypertension, Afib and pulmonary embolism (on Xarelto) skin cancer s/p right lower extremity excision, cirrhosis, chronic urinary retention, UTI secondary to enlarged prostate presented to ED with complaint of shortness of breath. Admitted to ICU for acute hypoxic respiratory distress. Neurological History of cognitive impairment -Currently alert, oriented X0. Able to nod yes or no to questions. -Mirtazapine 15mg PO daily -Escitalopram 10mg PO daily -Monitor for signs of mental status changes Pulmonary Acute hypoxic respiratory failure History of pulmonary embolism -Currently on Bilevel ventilation -Chest radiograph shows bilateral infiltrates, with left sided pleural effusion. -Maintain oxygen saturation greater than 90% Cardiac Afib Hypertension -Xarelto 20mg PO daily -Holding home antihypertensives as patient is septic, hypotensive -Holding home Lasix -Norepinepherine drip to maintain MAP greater than 65 -Cardiac telemetry monitoring Gastrointestinal -NPO while lethargic Renal Acute kidney injury -likely prerenal etiology Hyponatremia, Hyperkalemia BPH, chronic urinary retention -Patient is receiving IV normal saline -Monitor suprapubic catheter output -Finasteride 5mg PO daily Infectious disease Sepsis secondary to pneumonia -Urine culture, blood culture, sputum culture -Negative for influeza A and B -UA shows 89 WBC, 24 RBC, 3+ leukocyte esterase 2+ protein, 2+ blood. Rare epithelial cells, rare urine bacteria. -Lactic acid 4.6 Likely secondary to infectious etiology. Will trend -IV normal saline bolus -ID consult (Dr. Kimbrough) appreciated -Zosyn 2.25grams IV Q6H -Vancomycin 1000mg IV given in ED. Follow Vancomycin level. -Azithromycin 500mg IV -Aspiration precautions Hematologic, Oncologic History of skin cancer (sarcoma) -Patient is s/p resection. Will need to obtain further history regarding treatment. FEN -IV normal saline at 75mL/ hour -Hyponatremia, hyperkalemia. Follow CMP, replete as necessary -Currently NPO while lethargic. Prophylaxis -Lovenox 20mg PO daily Disposition: We will continue to follow the patient. Thank you for this consultative opportunity. Visit type - Emergency Visit Emergency Visit: Yes ED Registration Date: 05/10/18 Care time: The patient presented to the Emergency Department on the above date and was hospitalized for further evaluation of their emergent condition. - New Patient This patient is new to me today: Yes Date on this admission: 05/10/18 - Critical Care Critical Care patient: Yes Total Critical Care Time (in minutes): 40 Critical Care Statement: The care of this patient involved high complexity decision making to prevent further life threatening deterioration of the patient 's condition and/or to evaluate & treat vital organ system(s) failure or risk of failure.
--- NOTE | 2018-05-10 14:10 | PN ---
Teaching Attending Note Name of Resident: Sid Shaw ATTENDING PHYSICIAN STATEMENT I saw and evaluated the patient. I reviewed the resident's note and discussed the case with the resident. I agree with the resident's findings and plan as documented. SUBJECTIVE: 83 M, SNF resident, hypertension, Afib and pulmonary embolism on Xarelto, skin cancer s/p right lower extremity excision, (?) cirrhosis, chronic urinary retention, UTI, and BPH. Admitted via the ER due to worsening shortness of breath. No travel history or sick contacts. No reported hemoptysis. CXR: bibasilar infiltrates and effusions Due to severe respiratory distress and hypoxemia he was placed on NIPPV with good effect. HCP was called and gave verbal consent for central access placement. The HCP also requested an order for a DNR/DNI. PHYSICAL EXAMINATION Vital Signs - 24 hr 05/10/18 05/10/18 05/10/18 09:45 09:55 09:57 Temperature 101.3 F H Pulse Rate 93 H Pulse Rate [ 90 Apical] Respiratory 28 H 36 H Rate Blood Pressure 169/132 H Blood Pressure 194/139 H [Left Arm] O2 Sat by Pulse 80 L 79 L 82 L Oximetry (%) 05/10/18 05/10/18 05/10/18 10:00 10:41 10:49 Temperature Pulse Rate Pulse Rate [ 84 88 Apical] Respiratory 29 H 31 H Rate Blood Pressure Blood Pressure 85/54 L 98/62 [Left Arm] O2 Sat by Pulse 60 L 86 L 95 Oximetry (%) 05/10/18 05/10/18 05/10/18 10:57 11:17 11:30 Temperature 101.3 F H Pulse Rate Pulse Rate [ 88 84 82 Apical] Respiratory 31 H 25 H 28 H Rate Blood Pressure Blood Pressure 98/62 97/61 90/56 L [Left Arm] O2 Sat by Pulse 95 98 98 Oximetry (%) 05/10/18 05/10/18 12:00 13:17 Temperature 99.9 F H Pulse Rate Pulse Rate [ 82 Apical] Respiratory 26 H Rate Blood Pressure Blood Pressure 109/66 [Left Arm] O2 Sat by Pulse 100 Oximetry (%) GENERAL: Awake, confused, mildly tachypneic on NIPPV, cachectic. HEAD: Normocephalic, atraumatic EYES: PERRL, EOMI, sclera anicteric, conjunctiva clear. EARS, NOSE, THROAT: Dry mucous membranes. NECK: Supple without lymphadenopathy. LUNGS: On NIPPV support, bibasilar coarse rhonchi, no wheeze, (+) accessory muscle use. HEART: S1 and S2, AFib, without murmur, rub or gallop. ABDOMEN: Soft, nontender, not distended, (+) bowel sounds, no guarding, no rebound, no masses. No hepatomegaly or splenomegaly. UPPER EXTREMITIES: 2+ radial pulses bilaterally. No peripheral edema. LOWER EXTREMITIES: 1+ dorsalis pedis pulses bilaterally. No calf tenderness. No peripheral edema. NEUROLOGICAL: awake, confused SKIN: Warm, dry. Numerous excoriations noted on right lower extremity, bandaged. Laboratory Results - last 24 hr 05/10/18 05/10/18 05/10/18 10:00 10:00 10:00 WBC 9.5 RBC 4.04 Hgb 11.8 Hct 35.3 L MCV 87.4 MCH 29.3 MCHC 33.5 RDW 17.9 H Plt Count 320 MPV 8.2 Absolute Neuts (auto) 8.2 H Neutrophils % 85.9 H Lymphocytes % 11.7 D Monocytes % 2.0 L Eosinophils % 0.0 Basophils % 0.4 Nucleated RBC % 0 PT with INR 22.30 H INR 1.88 H PTT (Actin FS) 39.3 H VBG pH POC VBG pCO2 POC VBG pO2 Mixed VBG HCO3 Sodium Potassium Chloride Carbon Dioxide Anion Gap BUN Creatinine Creat Clearance w eGFR Random Glucose Lactic Acid Calcium Total Bilirubin AST ALT Alkaline Phosphatase Troponin I Total Protein Albumin Urine Color [place] Urine Appearance Cloudy Urine pH 5.0 Ur Specific Yale 1.023 Urine Protein 2+ H Urine Glucose (UA) Negative Urine Ketones Negative Urine Blood 2+ H Urine Nitrite Negative Urine Bilirubin Negative Urine Urobilinogen Negative Ur Leukocyte Esterase 3+ H Urine WBC (Auto) 89 Urine RBC (Auto) 24 Ur Epithelial Cells Rare Urine Bacteria Rare Urine Mucus Rare Urine Yeast Few Influenza A (Rapid) Influenza B (Rapid) 05/10/18 05/10/18 05/10/18 10:00 10:00 10:00 WBC RBC Hgb Hct MCV MCH MCHC RDW Plt Count MPV Absolute Neuts (auto) Neutrophils % Lymphocytes % Monocytes % Eosinophils % Basophils % Nucleated RBC % PT with INR INR PTT (Actin FS) VBG pH 7.39 POC VBG pCO2 38.5 POC VBG pO2 16.3 L* D Mixed VBG HCO3 22.6 Sodium 126 L Potassium 5.8 H Chloride 90 L Carbon Dioxide 24 Anion Gap 11 BUN 67 H Creatinine 1.7 H Creat Clearance w eGFR 38.88 Random Glucose 90 Lactic Acid 4.6 H* Calcium 8.3 L Total Bilirubin 1.1 H AST 14 L ALT 21 Alkaline Phosphatase 102 Troponin I Total Protein 5.7 L Albumin 2.3 L Urine Color Urine Appearance Urine pH Ur Specific [place] Urine Protein Urine Glucose (UA) Urine Ketones Urine Blood Urine Nitrite Urine Bilirubin Urine Urobilinogen Ur Leukocyte Esterase Urine WBC (Auto) Urine RBC (Auto) Ur Epithelial Cells Urine Bacteria Urine Mucus Urine Yeast Influenza A (Rapid) Influenza B (Rapid) 05/10/18 05/10/18 10:00 10:00 WBC RBC Hgb Hct MCV MCH MCHC RDW Plt Count MPV Absolute Neuts (auto) Neutrophils % Lymphocytes % Monocytes % Eosinophils % Basophils % Nucleated RBC % PT with INR INR PTT (Actin FS) VBG pH POC VBG pCO2 POC VBG pO2 Mixed VBG HCO3 Sodium Potassium Chloride Carbon Dioxide Anion Gap BUN Creatinine Creat Clearance w eGFR Random Glucose Lactic Acid Calcium Total Bilirubin AST ALT Alkaline Phosphatase Troponin I < 0.02 Total Protein Albumin Urine Color Urine Appearance Urine pH Ur Specific [place] Urine Protein Urine Glucose (UA) Urine Ketones Urine Blood Urine Nitrite Urine Bilirubin Urine Urobilinogen Ur Leukocyte Esterase Urine WBC (Auto) Urine RBC (Auto) Ur Epithelial Cells Urine Bacteria Urine Mucus Urine Yeast Influenza A (Rapid) Negative Influenza B (Rapid) Negative ASSESSMENT/PLAN: Acute Respiratory Failure Bilateral PNA Sepsis due to PNA Hypertension Afib Pulmonary embolism Skin cancer s/p right lower extremity excision (?) cirrhosis Chronic urinary retention BPH Failure to thrive TLC to be inserted for possible pressors and CVP monitoring IVF NIPPV support Aspiration precautions Quinn-culture ID evaluation for ABX Pressors for MAP < 65 Check urine antigen Check sputum Continue AC Strict I & O Requires ICU monitoring Dr Nicholson Critical care time spent in reviewing chart, evaluating patient and formulating plan - 36 minutes.
--- NOTE | 2018-05-10 14:16 | HP ---
Admitting History and Physical - Primary Care Physician PCP: Iza Gardner - Admission History of Present Illness: pt seen/ examined in er Case discussed with er physician chart reviewed In summary 83 year old male with PMH , HTN, HLD, atrial fibrillation on Xarelto, PE, DVT, psoriasis, cirrhosis, BPH, failure to thrive BIBA to ED from [facility] for acute SOB. Pt was hypoxic upon EMS presentation and placed on O2. Upon presentation to ED pt was hypoxic 88% on 8L O2. BP also low given fluids Placed on bipap ct chest -- MOderate pulmonary effusion . pt to be admitted to icu I also had discussed case with Dr. Jimenes today - Past Medical History MOLDER FEEDER: Yes: Dementia Cardiovascular: Yes: HTN Dermatology: Yes: Psoriasis - Smoking History Smoking history: Never smoked Have you smoked in the past 12 months: No Aproximately how many cigarettes per day: 0 - Alcohol/Substance Use Hx Alcohol Use: No Home Medications - Allergies Allergies/Adverse Reactions: Allergies Allergy/AdvReac Type Severity Reaction Status Date / Time No Known Allergies Allergy Verified 05/10/18 09:54 - Home Medications Home Medications: Ambulatory Orders Ascorbic Acid [Vitamin C -] 500 mg PO DAILY 05/10/18 Cholecalciferol (Vitamin D3) [D-2000] 2,000 unit PO DAILY 05/10/18 Escitalopram Oxalate [Lexapro -] 10 mg PO DAILY 05/10/18 Finasteride 5 mg PO DAILY 05/10/18 Furosemide [Lasix -] 20 mg PO DAILY 05/10/18 Furosemide [Lasix -] 20 mg PO DAILY 05/10/18 Metoprolol Succinate 25 mg PO DAILY 05/10/18 Mirtazapine [Remeron -] 15 mg PO DAILY 05/10/18 Multivit-Minerals/Ferrous Fum [Multivitamin Liquid] 15 ml PO DAILY 05/10/18 Nifedipine ER [Procardia Xl -] 90 mg PO DAILY 05/10/18 Ondansetron Injection [Zofran Injection] 2 mg IM Q8H 05/10/18 Piperacillin Sodium/Tazobactam [Zosyn 3.375 Gram Vial] 3.375 gm IV ONCE Potassium Chloride 30 ml PO DAILY 05/10/18 Rivaroxaban [Xarelto -] 20 mg PO DAILY 05/10/18 Secukinumab [Cosentyx Pen] 150 mg SQ Q28D 05/10/18 Sucralfate [Carafate -] 1 gm PO DAILY 05/10/18 Zinc Sulfate 220 mg PO DAILY 05/10/18 Review of Systems Unable to obtain ROS, reason: clinical condition Physical Examination Vital Signs: Vital Signs Temperature 99.9 F H 05/10/18 13:19 Pulse Rate 76 05/10/18 13:19 Respiratory Rate 22 H 05/10/18 13:19 Blood Pressure 88/57 L 05/10/18 13:19 O2 Sat by Pulse Oximetry (%) 96 05/10/18 13:19 Constitutional: Yes: Moderate Distress Eyes: Yes: Conjunctiva Clear Neck: Yes: Supple Cardiovascular: Yes: Regular Rate and Rhythm Respiratory: Yes: Diminished Gastrointestinal: Yes: Soft Edema: No Wound/Incision: Yes: Dressing Dry and Intact (legs) Neurological: Yes: Alert Psychiatric: Yes: Alert Labs: CBC, BMP 05/10/18 10:00 05/10/18 10:00 Imaging - Results Chest X-ray: Report Reviewed Cat Scan: Report Reviewed EKG: Report Reviewed Problem List - Problems (1) History of pulmonary embolism Code(s): Z86.711 - PERSONAL HISTORY OF PULMONARY EMBOLISM (2) Acute respiratory failure Code(s): J96.00 - ACUTE RESPIRATORY FAILURE, UNSP W HYPOXIA OR HYPERCAPNIA (3) Pneumonia Code(s): J18.9 - PNEUMONIA, UNSPECIFIED ORGANISM (4) Respiratory distress Code(s): R06.03 - ACUTE RESPIRATORY DISTRESS Assessment/Plan icu monitoring fluids pressors abx i/d consult bipap condition critical cc time approx 40 min will follow
[2018-05-10] MEDS ORDERED: NOREPINEPHRINE BITARTRATE 4 MG/4 ML ML IV ONE (14:49)
--- NOTE | 2018-05-10 15:09 | PROC ---
Central Line Insertion Indication: Sepsis, Vasopressor Risks and Benefits Explained: Yes Consent on Chart: Yes Central Line: Triple Lumen Catheter Anesthesia: 1% Lidocaine Sterile Technique: Yes Ultrasound Guided Assistance: Yes Position: Right Internal Jugular Post Insertion: Yes: Bilateral Breath Sounds, Bilateral Chest Expansion, Chest X-Ray Ordered Sterile Dressing Applied: Yes
[2018-05-10] MEDS: NOREPINEPHRINE BITARTRATE 8,000 MCG in DEXTROSE 5%-WATER - 492 ML IV SCH (16:05)
--- NOTE | 2018-05-10 16:41 | PN ---
Progress Note (short form) - Note Progress Note: ID consult dictated imp/reccd acute respiratory failure sepsis- hypotension, lactic acidosis possible pneumonia versus bilateral effusions KYMBERLY SPT possible UTI MRSA colonization continue zosyn adjusted for kymberly received vancomycin in ED, check trough in am f/u cultures Problem List - Problems (1) Acute respiratory failure Code(s): J96.00 - ACUTE RESPIRATORY FAILURE, UNSP W HYPOXIA OR HYPERCAPNIA (2) Sepsis Code(s): A41.9 - SEPSIS, UNSPECIFIED ORGANISM (3) Pneumonia Code(s): J18.9 - PNEUMONIA, UNSPECIFIED ORGANISM (4) UTI (urinary tract infection) Code(s): N39.0 - URINARY TRACT INFECTION, SITE NOT SPECIFIED (5) MRSA (methicillin resistant Staphylococcus aureus) colonization Code(s): Z22.322 - CARRIER OR SUSPECTED CARRIER OF METHICILLIN RESIS STAPH
[2018-05-10] MEDS ORDERED: AZITHROMYCIN IVPB 500 MG in DEXTROSE 5%-WATER - 250 ML IVPB ONE (17:03)
[2018-05-10] MEDS ORDERED: AZITHROMYCIN IVPB 500 MG/250 ML D5W PRE-DOCKED IVPB ONE (17:15)
--- NOTE | 2018-05-10 17:36 | CONS ---
DATE OF CONSULTATION: 05/10/2018 REQUESTED BY: Michelle Trinh MD This is an 83-year-old male admitted from [facility] with acute respiratory failure. He was seen in the emergency room yesterday on the for 2 episodes of epistaxis that morning. At the time he came to the emergency room, he was without complaint and he was not actively bleeding. He was started on Augmentin for possible pneumonia and UTI. At that time, it was noted that his renal function had worsened and his creatinine was 1.6. He was discharged on Augmentin, for possible pneumonia, possible UTI, and he was started on IV fluids. Today, he returned to the hospital with complaints of shortness of breath. He is awake and alert and currently on BiPAP. He developed hypotension after admission to the hospital. He also was noted to have fever of 101.3 and elevated lactic acid. He has a central line placed and he was started on Levophed. I am asked to see him for antibiotic recommendations. His past medical history is notable for a history of cognitive impairment, hypertension, atrial fibrillation. He has a history of BPH, pulmonary embolus. 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 He has failure to thrive as well and has hyperlipidemia. He resides at [facility]. His medications at the [facility]: This morning he was started on Zosyn, Lasix, Zofran, Carafate, zinc sulfate, Xarelto, vitamin C, Remeron, potassium, Lexapro, finasteride, Cosentyx, monthly Vitamin D3, nifedipine, multivitamins, and metoprolol. SOCIAL HISTORY: Resides at the [facility]. There is no history of any substance use. Review of systems is as per HPI. PHYSICAL EXAMINATION: Vital Signs: T-max was 101.3. Current temperature is 99.9. Pulse of 67. Blood pressure is 82/50. Respiratory rate is 21. He weighs 52 kg, is saturating 93%. HEENT: Normocephalic. His eyes are anicteric. His mouth is dry. He is wearing a BiPAP; it is difficult to look inside. Lungs: Some diminished breath sounds at the bases. Heart: Regular rate and rhythm. Abdomen: Soft, nontender. Extremities: His right leg, he has a dressing in place but he has dry skin wound below this area. Genitourinary: Of note, he has a suprapubic tube in place. White count on admission was 9.5, hemoglobin 11.8, platelets 320. Chemistries: BUN 67, creatinine 1.7. Lactic acid was 4.6 and repeat of 3.7. Sodium of 126. Urinalysis with 3+ leukocytes. His influenza screen is negative. He had a CAT scan of his chest done that is notable for bilateral pleural effusions, moderate to large on the left and small to moderate on the right, with bilateral compressive atelectasis. In summary, this is an elderly man with psoriasis, on Cosentyx, admitted with acute respiratory failure, sepsis, pneumonia, possible urinary tract infection, though he does have a suprapubic tube, which complicates the finding. 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 He received vancomycin and Zosyn in the emergency room. I would continue Zosyn, adjust it for his acute kidney injury. I would check a vancomycin level in the morning and follow up his cultures. Possible pneumonia, though the CAT scan is much more impressive for effusion than pneumonia. Possible urinary tract infection, though complicated by the fact he has a suprapubic tube. Overall prognosis is guarded. The ICU staff has been in touch with his healthcare proxy. The patient is DNR/DNI. I spoke with the ICU resident. ILAN DRISCOLL M.D. [id number]
[2018-05-10] MEDS: RIVAROXABAN 20 MG TABLET PO SCH (18:26)
[2018-05-10 20:32] LABS: ANION GAP 11 MMOL/L (8-16); BLOOD UREA NITROGEN 53 mg/dL (7-18); CALCIUM 7.6 mg/dL (8.5-10.1); CHLORIDE 98 mmol/L (98-107); CO2 21 mmol/L (21-32); CREATININE 1.2 mg/dL (0.55-1.3); GLUCOSE,RANDOM 133 mg/dL (74-106); POTASSIUM 4.2 mmol/L (3.5-5.1); SODIUM 131 mmol/L (136-145)
[2018-05-10] MEDS: PIPERACILLIN/TAZOB 2.25 GM 2.25 GM in DEXTROSE 5%-WATER - 50 ML IVPB SCH (22:00)
[2018-05-10] MEDS ORDERED: PIPERACILLIN/TAZOBACTAM 2.25 GM VIAL IVPB ONE (22:17)
[2018-05-10] MEDS ORDERED: DEXTROSE 5%-WATER - 50 ML IVPB ONE (22:17)
[2018-05-11] MEDS ORDERED: DEXTROSE 5%-WATER - 50 ML IVPB ONE ×4 (02:18→20:04)
[2018-05-11] MEDS ORDERED: PIPERACILLIN/TAZOBACTAM 2.25 GM VIAL IVPB ONE ×4 (02:18→20:04)
[2018-05-11] MEDS: PIPERACILLIN/TAZOB 2.25 GM 2.25 GM in DEXTROSE 5%-WATER - 50 ML IVPB SCH ×4 (02:31→21:21)
[2018-05-11 06:19] LABS: HEMATOCRIT 25.5 % (35.4-49); HEMOGLOBIN 8.8 GM/dL (11.7-16.9); MCHC 34.6 g/dl (32.0-35.9); MEAN CELL VOLUME 86.7 fl (80-96); MEAN PLT VOLUME 7.7 fl (7.5-11.1); PLATELET COUNT 240 K/MM3 (134-434); RBC 2.94 M/mm3 (4.00-5.60); RDW 17.9 % (11.9-15.9); WHITE BLOOD COUNT 10.2 K/mm3 (4.0-10.0)
[2018-05-11 07:01] LABS: ALBUMIN 1.8 g/dl (3.4-5.0); ALK PHOS 87 U/L (45-117); ANION GAP 9 MMOL/L (8-16); BILIRUBIN,TOTAL 0.7 mg/dL (0.2-1); BLOOD UREA NITROGEN 44 mg/dL (7-18); CALCIUM 7.8 mg/dL (8.5-10.1); CHLORIDE 98 mmol/L (98-107); CO2 24 mmol/L (21-32); GLUCOSE,RANDOM 93 mg/dL (74-106); MAGNESIUM 2.2 mg/dL (1.8-2.4); PHOSPHOROUS 3.6 mg/dL (2.5-4.9); POTASSIUM 3.7 mmol/L (3.5-5.1); SGOT/AST 14 U/L (15-37); SGPT/ALT 15 U/L (13-61); SODIUM 131 mmol/L (136-145); TOT PROT 4.8 g/dl (6.4-8.2)
--- NOTE | 2018-05-11 07:34 | PN ---
Physical Exam: SUBJECTIVE: Patient seen and examined at bedside. Attempted to wean patient off Bilevel ventilation, and he desaturated to 80s, and was placed back onto the Bilvel. Currently saturating well with 100% nonrebreather mask. He denies shortness of breath, cough, chest pain, palpitations, abdominal pain, nausea, vomiting. OBJECTIVE: Vital Signs Period Temp Pulse Resp BP Sys/Contreras Pulse Ox Last 24 Hr 98.4 F-101.3 F 67-93 21-36 82-194/44-139 60-100 GENERAL: Awake, alert, oriented X0 on 100% nonrebreather. No acute distress. Minimally responsive, answering basic questions by nodding head. HEAD: Normocephalic, atraumatic EYES: PERRL, EOMI, sclera anicteric, conjunctiva clear. EARS, NOSE, THROAT: Oropharynx clear without exudates. Dry mucous membranes. NECK: Supple. Right sided central venous catheter placed. LUNGS: Breath sounds equal, clear to auscultation bilaterally. No wheezes, and no crackles. Using accessory muscles of respiration. HEART: Irregular rate and rhythm, normal S1 and S2 without murmur, rub or gallop. ABDOMEN: Soft, nontender, not distended, normoactive bowel sounds, no guarding, no rebound, no masses. No hepatomegaly or splenomegaly. Suprapubic catheter noted, insertion site clean, dry, non draining. UPPER EXTREMITIES: 2+ radial pulses bilaterally. No peripheral edema. LOWER EXTREMITIES: 1+ dorsalis pedis pulses bilaterally. No calf tenderness. No peripheral edema. NEUROLOGICAL: Patient freely moves bilateral upper and lower extremities. SKIN: Warm, dry. Numerous excoriations noted on right lower extremity, bandaged. Laboratory Results - last 24 hr 05/10/18 05/10/18 05/10/18 10:00 10:00 10:00 WBC 9.5 RBC 4.04 Hgb 11.8 Hct 35.3 L MCV 87.4 MCH 29.3 MCHC 33.5 RDW 17.9 H Plt Count 320 MPV 8.2 Absolute Neuts (auto) 8.2 H Neutrophils % 85.9 H Lymphocytes % 11.7 D Monocytes % 2.0 L Eosinophils % 0.0 Basophils % 0.4 Nucleated RBC % 0 PT with INR 22.30 H INR 1.88 H PTT (Actin FS) 39.3 H VBG pH POC VBG pCO2 POC VBG pO2 Mixed VBG HCO3 Sodium Potassium Chloride Carbon Dioxide Anion Gap BUN Creatinine Creat Clearance w eGFR Random Glucose Lactic Acid Calcium Phosphorus Magnesium Total Bilirubin AST ALT Alkaline Phosphatase Troponin I Total Protein Albumin Urine Color [place] Urine Appearance Cloudy Urine pH 5.0 Ur Specific [place] 1.023 Urine Protein 2+ H Urine Glucose (UA) Negative Urine Ketones Negative Urine Blood 2+ H Urine Nitrite Negative Urine Bilirubin Negative Urine Urobilinogen Negative Ur Leukocyte Esterase 3+ H Urine WBC (Auto) 89 Urine RBC (Auto) 24 Ur Epithelial Cells Rare Urine Bacteria Rare Urine Mucus Rare Urine Yeast Few Random Vancomycin Influenza A (Rapid) Influenza B (Rapid) 05/10/18 05/10/18 05/10/18 10:00 10:00 10:00 WBC RBC Hgb Hct MCV MCH MCHC RDW Plt Count MPV Absolute Neuts (auto) Neutrophils % Lymphocytes % Monocytes % Eosinophils % Basophils % Nucleated RBC % PT with INR INR PTT (Actin FS) VBG pH 7.39 POC VBG pCO2 38.5 POC VBG pO2 16.3 L* D Mixed VBG HCO3 22.6 Sodium 126 L Potassium 5.8 H Chloride 90 L Carbon Dioxide 24 Anion Gap 11 BUN 67 H Creatinine 1.7 H Creat Clearance w eGFR 38.88 Random Glucose 90 Lactic Acid 4.6 H* Calcium 8.3 L Phosphorus Magnesium Total Bilirubin 1.1 H AST 14 L ALT 21 Alkaline Phosphatase 102 Troponin I Total Protein 5.7 L Albumin 2.3 L Urine Color Urine Appearance Urine pH Ur Specific [place] Urine Protein Urine Glucose (UA) Urine Ketones Urine Blood Urine Nitrite Urine Bilirubin Urine Urobilinogen Ur Leukocyte Esterase Urine WBC (Auto) Urine RBC (Auto) Ur Epithelial Cells Urine Bacteria Urine Mucus Urine Yeast Random Vancomycin Influenza A (Rapid) Influenza B (Rapid) 05/10/18 05/10/18 05/10/18 10:00 10:00 15:27 WBC RBC Hgb Hct MCV MCH MCHC RDW Plt Count MPV Absolute Neuts (auto) Neutrophils % Lymphocytes % Monocytes % Eosinophils % Basophils % Nucleated RBC % PT with INR INR PTT (Actin FS) VBG pH POC VBG pCO2 POC VBG pO2 Mixed VBG HCO3 Sodium Potassium Chloride Carbon Dioxide Anion Gap BUN Creatinine Creat Clearance w eGFR Random Glucose Lactic Acid 3.7 H* Calcium Phosphorus Magnesium Total Bilirubin AST ALT Alkaline Phosphatase Troponin I < 0.02 Total Protein Albumin Urine Color Urine Appearance Urine pH Ur Specific [place] Urine Protein Urine Glucose (UA) Urine Ketones Urine Blood Urine Nitrite Urine Bilirubin Urine Urobilinogen Ur Leukocyte Esterase Urine WBC (Auto) Urine RBC (Auto) Ur Epithelial Cells Urine Bacteria Urine Mucus Urine Yeast Random Vancomycin Influenza A (Rapid) Negative Influenza B (Rapid) Negative 05/10/18 05/10/18 05/11/18 19:00 20:33 05:30 WBC RBC Hgb Hct MCV MCH MCHC RDW Plt Count MPV Absolute Neuts (auto) Neutrophils % Lymphocytes % Monocytes % Eosinophils % Basophils % Nucleated RBC % PT with INR INR PTT (Actin FS) VBG pH POC VBG pCO2 POC VBG pO2 Mixed VBG HCO3 Sodium 131 L Potassium 4.2 Chloride 98 Carbon Dioxide 21 Anion Gap 11 BUN 53 H Creatinine 1.2 Creat Clearance w eGFR 58.11 Random Glucose 133 H Lactic Acid 2.2 H* Calcium 7.6 L Phosphorus Magnesium Total Bilirubin AST ALT Alkaline Phosphatase Troponin I Total Protein Albumin Urine Color Urine Appearance Urine pH Ur Specific [place] Urine Protein Urine Glucose (UA) Urine Ketones Urine Blood Urine Nitrite Urine Bilirubin Urine Urobilinogen Ur Leukocyte Esterase Urine WBC (Auto) Urine RBC (Auto) Ur Epithelial Cells Urine Bacteria Urine Mucus Urine Yeast Random Vancomycin 9.5 L Influenza A (Rapid) Influenza B (Rapid) 05/11/18 05/11/18 05:30 05:30 WBC 10.2 H RBC 2.94 L Hgb 8.8 L Hct 25.5 L D MCV 86.7 MCH 30.0 MCHC 34.6 RDW 17.9 H Plt Count 240 D MPV 7.7 Absolute Neuts (auto) Neutrophils % Lymphocytes % Monocytes % Eosinophils % Basophils % Nucleated RBC % PT with INR INR PTT (Actin FS) VBG pH POC VBG pCO2 POC VBG pO2 Mixed VBG HCO3 Sodium 131 L Potassium 3.7 Chloride 98 Carbon Dioxide 24 Anion Gap 9 BUN 44 H Creatinine 1.0 Creat Clearance w eGFR > 60 Random Glucose 93 Lactic Acid Calcium 7.8 L Phosphorus 3.6 Magnesium 2.2 Total Bilirubin 0.7 AST 14 L ALT 15 Alkaline Phosphatase 87 Troponin I Total Protein 4.8 L Albumin 1.8 L Urine Color Urine Appearance Urine pH Ur Specific [place] Urine Protein Urine Glucose (UA) Urine Ketones Urine Blood Urine Nitrite Urine Bilirubin Urine Urobilinogen Ur Leukocyte Esterase Urine WBC (Auto) Urine RBC (Auto) Ur Epithelial Cells Urine Bacteria Urine Mucus Urine Yeast Random Vancomycin Influenza A (Rapid) Influenza B (Rapid) Active Medications Generic Name Dose Route Start Last Admin Trade Name Lindsey PRN Reason Stop Dose Admin Escitalopram Oxalate 10 mg 05/11/18 10:00 Lexapro - PO DAILY [facility] Finasteride 5 mg 05/11/18 10:00 Proscar - PO DAILY [facility] Norepinephrine Bitartrate 8, 500 mls @ 18.75 mls/hr 05/10/18 15:30 05/10/18 16:05 000 mcg/ Dextrose IV 5 mcg/min TITR [facility]YDE 18.75 mls/hr Administration Protocol 5 MCG/MIN Piperacillin Sod/Tazobactam 50 mls @ 100 mls/hr 05/10/18 21:00 05/11/18 02:31 Sod 2.25 gm/ Dextrose IVPB 100 mls/hr Q6H-IV [facility] Administration Protocol Mirtazapine 15 mg 05/11/18 22:00 Remeron - PO HS [facility] Rivaroxaban 20 mg 05/10/18 18:00 05/10/18 18:26 Xarelto - PO Not Given DAILY@1800 [facility] ASSESSMENT/PLAN: Patient is an 83 year old male from [facility] with history of cognitive impairment , hypertension, Afib and pulmonary embolism (on Xarelto) skin cancer s/p right lower extremity excision, cirrhosis, chronic urinary retention, UTI secondary to enlarged prostate presented to ED with complaint of shortness of breath. Admitted to ICU for acute hypoxic respiratory distress. Neurological History of cognitive impairment -Currently alert, oriented X0. Able to nod yes or no to questions. -Mirtazapine 15mg PO daily -Escitalopram 10mg PO daily -Monitor for signs of mental status changes Pulmonary Acute hypoxic respiratory failure History of pulmonary embolism -Currently saturating well on 100% nonrebreather mask. -CT chest showed significant bilateral pleural effusions. -Chest radiograph shows bilateral infiltrate -Maintain oxygen saturation greater than 90% Cardiac Afib Hypertension -Xarelto 20mg PO daily -Holding home antihypertensives as patient is hypotensive -Holding home Lasix -Norepinepherine drip to maintain MAP greater than 65 -Cardiac telemetry monitoring Gastrointestinal -Reinstate regular diet -Protonix 40mg IV daily Renal Acute kidney injury -likely prerenal etiology (resolved) Hyponatremia BPH, chronic urinary retention -IV fluids discontinued. -Monitor suprapubic catheter output -Finasteride 5mg PO daily Infectious disease Sepsis secondary to pneumonia -Urine culture, blood culture, sputum culture -Negative for influeza A and B -UA shows 89 WBC, 24 RBC, 3+ leukocyte esterase 2+ protein, 2+ blood. Rare epithelial cells, rare urine bacteria. -Lactic acid trending down with IV fluid hydration -ID consult (Dr. Kimbrough) appreciated -Zosyn 2.25grams IV Q6H (day #2) -Vancomycin 1000mg (day #2) -Azithromycin 500mg IV daily (day#2) -Aspiration precautions Hematologic, Oncologic History of skin cancer (sarcoma) -Patient is s/p resection. Will need to obtain further history regarding treatment. FEN -No IV fluids indicated. Encourage judicious oral hydration. -Hyponatremia. Follow CMP, replete as necessary -Diet pending swallow evaluation. Prophylaxis -Xarelto 20mg PO daily -Protonix 40mg IV daily Disposition: Continue care in ICU Visit type - Emergency Visit Emergency Visit: Yes ED Registration Date: 05/10/18 Care time: The patient presented to the Emergency Department on the above date and was hospitalized for further evaluation of their emergent condition. - New Patient This patient is new to me today: No - Critical Care Critical Care patient: Yes Total Critical Care Time (in minutes): 35 Critical Care Statement: The care of this patient involved high complexity decision making to prevent further life threatening deterioration of the patient 's condition and/or to evaluate & treat vital organ system(s) failure or risk of failure. - Discharge Referral Referred to [facility] No
[2018-05-11] MEDS ORDERED: VANCOMYCIN 1 GRAM (PRE-DOCKED) 1,000 MG/250 ML BAG IVPB ONE (09:26)
--- NOTE | 2018-05-11 09:26 | PN ---
Progress Note (short form) - Note Progress Note: awake on bipap remains on levophed 8 mcg Vital Signs Period Temp Pulse Resp BP Sys/Contreras Pulse Ox Last 24 Hr 98.4 F-101.3 F 67-93 21-36 82-194/44-139 60-100 cor-rrr lungs decreased bs at bases abd soft,nt ext no edema- dry lesions/scabs RLE CBC, BMP 05/11/18 05:30 05/11/18 05:30 cultures pending cxray unchanged a/p acute respiratory failure sepsis- hypotension, lactic acidosis possible pneumonia versus bilateral effusions KYMBERLY SPT possible UTI MRSA colonization continue zosyn adjusted for kymberly received vancomycin in ED, check trough in am f/u cultures vancomycin one gram today continue zithromax until urinary antigens are back Problem List - Problems (1) Acute respiratory failure Code(s): J96.00 - ACUTE RESPIRATORY FAILURE, UNSP W HYPOXIA OR HYPERCAPNIA (2) Sepsis Code(s): A41.9 - SEPSIS, UNSPECIFIED ORGANISM (3) Pneumonia Code(s): J18.9 - PNEUMONIA, UNSPECIFIED ORGANISM (4) UTI (urinary tract infection) Code(s): N39.0 - URINARY TRACT INFECTION, SITE NOT SPECIFIED (5) MRSA (methicillin resistant Staphylococcus aureus) colonization Code(s): Z22.322 - CARRIER OR SUSPECTED CARRIER OF METHICILLIN RESIS STAPH
[2018-05-11] MEDS: FINASTERIDE 5 MG TABLET (FP) PO SCH (09:53)
[2018-05-11] MEDS: ESCITALOPRAM OXALATE 10 MG TABLET (FP) PO SCH (09:55)
--- NOTE | 2018-05-11 10:22 | PN ---
Progress Note (short form) - Note Progress Note: pt seen/ examined in icu all f/u noted/ appreciated case was discussed with Dr. Jimenes also. alert/ awake on bipap hcp-- signed dnr. di--discussed with pt -- also says same-- dont want cpr/ resuscitated or Intubated remains on pressor support on bipap Vital Signs Temp 98.4 F 05/11/18 00:00 Pulse 88 05/11/18 08:00 Resp 25 H 05/11/18 08:00 BP 118/63 05/11/18 08:00 Pulse Ox 95 05/11/18 08:23 Intake & Output 05/10/18 05/10/18 05/11/18 11:59 23:59 11:59 Intake Total 3514 690 Output Total 382 709 8253 Balance -200 2914 -510 Weight 105 lb 115 lb 111 lb 12.39 oz Intake: IV 3114 640 Levophed - 8,000 Mcg In 154 140 D5w - 492 ml @ 5 MCG/MIN 18.75 mls/hr IV TITR CLYDE Rx#:[id number] Normal Saline - 1,000 ml 1000 @ 1000 mls/hr IV ASDIR STA Rx#:[id number] Normal Saline - 1,000 ml 1000 500 @ 1000 mls/hr IV ASDIR STA Rx#:[id number] Normal Saline - 1,000 ml 960 @ 1000 mls/hr IV ASDIR STA Rx#:[id number] IVPB 400 50 Output: Urine 507 590 7564 Flores 600 1200 Other: Voiding Method Indwelling Catheter Indwelling Catheter Height 5 ft 7 in 5 ft 4 in Body Mass Index (BMI) 16.4 19.7 Weight Measurement Method Built in [facility] Built in [facility] Weight Measurement Method Est/Stated by Patient Active Medications Escitalopram Oxalate (Lexapro -) 10 mg PO DAILY [facility] Last Admin: 05/11/18 09:55 Dose: 10 mg Finasteride (Proscar -) 5 mg PO DAILY [facility] Last Admin: 05/11/18 09:53 Dose: 5 mg Norepinephrine Bitartrate 8, (000 mcg/ Dextrose) 500 mls @ 18.75 mls/hr IV TITR CLYDE; Protocol Last Admin: 05/10/18 16:05 Dose: 5 mcg/min, 18.75 mls/hr Piperacillin Sod/Tazobactam (Sod 2.25 gm/ Dextrose) 50 mls @ 100 mls/hr IVPB Q6H-IV CLYDE; Protocol Last Admin: 05/11/18 09:52 Dose: 100 mls/hr Vancomycin HCl (Vancomycin (Pre-Docked)) 1,000 mg in 250 mls @ 166.667 mls/hr IVPB ONCE ONE; Protocol Stop: 05/11/18 10:55 Mirtazapine (Remeron -) 15 mg PO HS [facility] Rivaroxaban (Xarelto -) 20 mg PO DAILY@1800 [facility] Last Admin: 05/10/18 18:26 Dose: Not Given CBC, BMP 05/11/18 05:30 05/11/18 05:30 cxr -- reviewed Microbiology 05/10/18 10:00 Blood Culture - Preliminary Blood - Peripheral Venous NO GROWTH OBTAINED AFTER 24 HOURS, INCUBATION TO CONTINUE FOR 4 DAYS. 05/10/18 10:00 Urine Culture - Final Urine - Urine - Catheterized Contaminated: Please Repeat Physical Examination Vital Signs: Vital Signs Temperature 99.9 F H 05/10/18 13:19 Pulse Rate 76 05/10/18 13:19 Respiratory Rate 22 H 05/10/18 13:19 Blood Pressure 88/57 L 05/10/18 13:19 O2 Sat by Pulse Oximetry (%) 96 05/10/18 13:19 Physical Exam Constitutional: Yes: awake Eyes: Yes: Conjunctiva Clear Neck: Yes: Supple. no Jvd Cardiovascular: Yes: Regular Rate and Rhythm Respiratory: Yes: Diminished Gastrointestinal: Yes: Soft/ non tender Edema: No Wound/Incision: Yes: Dressing Dry and Intact (legs) Neurological: Yes: Alert Psychiatric: Yes: Alert Assessment/Plan Sepsis Respiratory failure Pneumonia icu monitoring pressors abx i/d consult appreciated bipap condition improved cc time approx 30 min pt is DNR/DI Discussed with icu team / nursing staff also.
--- NOTE | 2018-05-11 10:47 | EKG ---
Test Reason : Blood Pressure : / mmHG Vent. Rate : 086 BPM Atrial Rate : 086 BPM P-R Int : 198 ms QRS Dur : 070 ms QT Int : 346 ms P-R-T Axes : 078 -65 014 degrees QTc Int : 414 ms SINUS RHYTHM WITH MARKED SINUS ARRHYTHMIA LEFT AXIS DEVIATION LOW VOLTAGE QRS INFERIOR INFARCT , AGE UNDETERMINED ABNORMAL ECG WHEN COMPARED WITH ECG OF 13-JUN-2017 18:38, SINUS RHYTHM HAS REPLACED ATRIAL FIBRILLATION T WAVE VARIATION Confirmed by ISIAH ALDANA MD ([id number]) on 05/11/2018 10:46:59 AM Referred By: Confirmed By:ISIAH ALDANA MD
--- NOTE | 2018-05-11 12:39 | PN ---
Teaching Attending Note Name of Resident: Sid Shaw ATTENDING PHYSICIAN STATEMENT I saw and evaluated the patient. I reviewed the resident's note and discussed the case with the resident. I agree with the resident's findings and plan as documented. SUBJECTIVE: Pt seen and examined in the ICU. Remains on BiPAP, awake. Denies shortness of breath. No fevers recorded. OBJECTIVE: Vital Signs Period Temp Pulse Resp BP Sys/Contreras Pulse Ox Last 24 Hr 98.4 F-99.9 F 67-88 21-25 82-124/44-70 93-100 Intake & Output 05/08/18 05/09/18 05/10/18 05/11/18 23:59 23:59 23:59 23:59 Intake Total 3514 690 Output Total 800 1200 Balance 2714 -510 Weight 52.163 kg 50.7 kg Gen: mildly tachypneic on BiPAP Heart: RRR Lung: decreased breath sounds at the bases Abd: soft, nontender Ext: no edema CBC, BMP 05/11/18 05:30 05/11/18 05:30 Active Medications Escitalopram Oxalate (Lexapro -) 10 mg PO DAILY [facility] Last Admin: 05/11/18 09:55 Dose: 10 mg Finasteride (Proscar -) 5 mg PO DAILY [facility] Last Admin: 05/11/18 09:53 Dose: 5 mg Norepinephrine Bitartrate 8, (000 mcg/ Dextrose) 500 mls @ 18.75 mls/hr IV TITR CLYDE; Protocol Last Admin: 05/10/18 16:05 Dose: 5 mcg/min, 18.75 mls/hr Piperacillin Sod/Tazobactam (Sod 2.25 gm/ Dextrose) 50 mls @ 100 mls/hr IVPB Q6H-IV [facility]; Protocol Last Admin: 05/11/18 09:52 Dose: 100 mls/hr Mirtazapine (Remeron -) 15 mg PO HS [facility] Pantoprazole Sodium (Protonix Iv) 40 mg IVPUSH DAILY [facility] Rivaroxaban (Xarelto -) 20 mg PO DAILY@1800 [facility] Last Admin: 05/10/18 18:26 Dose: Not Given ASSESSMENT AND PLAN: Acute Hypoxic Respiratory Failure Pneumonia Septic Shock Lactic Acidosis Atrial Fibrillation h/o Pulmonary Emboli h/o Skin Ca Dementia - continue antibiotics - f/u cultures - IVF boluses as needed - taper levophed gtt to maintain MAP >65 - continue anticoagulation - O2 to keep SpO2 >90% - BiPAP to assist in work of breathing - PO as tolerated - DVT/GI prophylaxis - continue ICU monitoring critical care time spent in reviewing chart, evaluating patient and formulating plan 35 min
[2018-05-11] MEDS: PANTOPRAZOLE SODIUM 40 MG VIAL IVPUSH SCH (12:47)
[2018-05-11] MEDS ORDERED: NOREPINEPHRINE BITARTRATE 4 MG/4 ML ML IV ONE (14:05)
[2018-05-11] MEDS: NOREPINEPHRINE BITARTRATE 8,000 MCG in DEXTROSE 5%-WATER - 492 ML IV SCH (14:45)
[2018-05-11] MEDS: AZITHROMYCIN IVPB 500 MG/250 ML BAG IVPB SCH (17:49)
[2018-05-11] MEDS: RIVAROXABAN 20 MG TABLET PO SCH (17:49)
[2018-05-11] MEDS: MIRTAZAPINE 15 MG TABLET (FP) PO SCH (21:22)
[2018-05-12] MEDS: PIPERACILLIN/TAZOB 2.25 GM 2.25 GM in DEXTROSE 5%-WATER - 50 ML IVPB SCH ×4 (03:00→22:14)
[2018-05-12] MEDS ORDERED: DEXTROSE 5%-WATER - 50 ML IVPB ONE ×4 (04:36→21:27)
[2018-05-12] MEDS ORDERED: PIPERACILLIN/TAZOBACTAM 2.25 GM VIAL IVPB ONE ×4 (04:36→21:26)
[2018-05-12 07:02] LABS: HEMATOCRIT 22.7 % (35.4-49); MCH 30.8 pg (25.7-33.7); MCHC 35.2 g/dl (32.0-35.9); MEAN CELL VOLUME 87.4 fl (80-96); PLATELET COUNT 190 K/MM3 (134-434); RBC 2.59 M/mm3 (4.00-5.60); RDW 17.5 % (11.9-15.9); WHITE BLOOD COUNT 9.1 K/mm3 (4.0-10.0)
[2018-05-12 07:12] LABS: ALBUMIN 1.6 g/dl (3.4-5.0); ALK PHOS 107 U/L (45-117); ANION GAP 8 MMOL/L (8-16); BILIRUBIN,TOTAL 0.7 mg/dL (0.2-1); BLOOD UREA NITROGEN 28 mg/dL (7-18); CALCIUM 8.1 mg/dL (8.5-10.1); CHLORIDE 99 mmol/L (98-107); CO2 25 mmol/L (21-32); CREATININE 0.9 mg/dL (0.55-1.3); GLUCOSE,RANDOM 86 mg/dL (74-106); PHOSPHOROUS 2.5 mg/dL (2.5-4.9); SGPT/ALT 18 U/L (13-61); SODIUM 132 mmol/L (136-145)
[2018-05-12 07:30] LABS: POTASSIUM 2.6 mmol/L (3.5-5.1)
--- NOTE | 2018-05-12 08:23 | PN ---
Physical Exam: SUBJECTIVE: Patient seen and examined at bedside this morning resting comfortably in bed. He was febrile to 100.4F overnight. He denies shortness of breath, chest pain, palpitations, abdominal pain, nausea, vomiting. OBJECTIVE: Vital Signs Period Temp Pulse Resp BP Sys/Contreras Pulse Ox Last 24 Hr 98.9 F-100.4 F 22-97 12-25 86-131/53-70 93-100 GENERAL: Awake, alert, oriented X0 on bilevel ventilation. No acute distress. Answering basic questions by nodding head. HEAD: Normocephalic, atraumatic EYES: PERRL, EOMI, sclera anicteric, conjunctiva clear. EARS, NOSE, THROAT: Oropharynx clear without exudates. Dry mucous membranes. NECK: Supple. Right sided central venous catheter. LUNGS: Breath sounds equal, clear to auscultation bilaterally. No wheezes, and no crackles. Using accessory muscles of respiration. HEART: Irregular rate and rhythm, normal S1 and S2 without murmur, rub or gallop. ABDOMEN: Soft, nontender, not distended, normoactive bowel sounds, no guarding, no rebound, no masses. No hepatomegaly or splenomegaly. Suprapubic catheter noted, insertion site clean, dry, non draining. UPPER EXTREMITIES: 2+ radial pulses bilaterally. No peripheral edema. LOWER EXTREMITIES: 1+ dorsalis pedis pulses bilaterally. No calf tenderness. No peripheral edema. NEUROLOGICAL: Patient freely moves bilateral upper and lower extremities. SKIN: Warm, dry. Numerous excoriations noted on right lower extremity, bandaged. Laboratory Results - last 24 hr 05/12/18 05/12/18 05:30 05:30 WBC 9.1 RBC 2.59 L Hgb 8.0 L Hct 22.7 L MCV 87.4 MCH 30.8 MCHC 35.2 RDW 17.5 H Plt Count 190 D MPV 8.0 Sodium 132 L Potassium 2.6 L* Chloride 99 Carbon Dioxide 25 Anion Gap 8 BUN 28 H Creatinine 0.9 Creat Clearance w eGFR > 60 Random Glucose 86 Calcium 8.1 L Phosphorus 2.5 Magnesium 2.0 Total Bilirubin 0.7 AST ALT 18 Alkaline Phosphatase 107 Total Protein 5.0 L Albumin 1.6 L Active Medications Generic Name Dose Route Start Last Admin Trade Name Freq PRN Reason Stop Dose Admin Escitalopram Oxalate 10 mg 05/11/18 10:00 05/11/18 09:55 Lexapro - PO 10 mg DAILY [facility] Administration Finasteride 5 mg 05/11/18 10:00 05/11/18 09:53 Proscar - PO 5 mg DAILY [facility] Administration Norepinephrine Bitartrate 8, 500 mls @ 18.75 mls/hr 05/10/18 15:30 05/11/18 14:45 000 mcg/ Dextrose IV 5 mcg/min TITR [facility]YDE 18.75 mls/hr Administration Protocol 5 MCG/MIN Piperacillin Sod/Tazobactam 50 mls @ 100 mls/hr 05/10/18 21:00 05/12/18 03:00 Sod 2.25 gm/ Dextrose IVPB 100 mls/hr Q6H-IV [facility]YDE Administration Protocol Azithromycin 500 mg in 250 mls @ 250 mls/hr 05/11/18 13:45 05/11/18 17:49 Zithromax 500mg Ivpb (Pre-Docked) IVPB 250 mls/hr DAILY [facility] Administration Potassium Chloride 10 meq in 100 mls @ 100 mls/hr 05/12/18 07:45 Potassium Chloride 10 Meq Premix Ivpb - IVPB 05/12/18 10:44 Q60M [facility]YDE Mirtazapine 15 mg 05/11/18 22:00 05/11/18 21:22 Remeron - PO 15 mg HS [facility]YDE Administration Pantoprazole Sodium 40 mg 05/11/18 11:30 05/11/18 12:47 Protonix Iv IVPUSH 40 mg DAILY [facility] Administration Rivaroxaban 20 mg 05/10/18 18:00 05/11/18 17:49 Xarelto - PO 20 mg DAILY@1800 [facility] Administration ASSESSMENT/PLAN: Patient is an 83 year old male from [facility] with history of cognitive impairment , hypertension, Afib and pulmonary embolism (on Xarelto) skin cancer s/p right lower extremity excision, cirrhosis, chronic urinary retention, UTI secondary to enlarged prostate presented to ED with complaint of shortness of breath. Admitted to ICU for acute hypoxic respiratory distress. Neurological History of cognitive impairment -Currently alert, oriented X0. Able to nod yes or no to questions. -Mirtazapine 15mg PO daily -Escitalopram 10mg PO daily -Monitor for signs of mental status changes Pulmonary Acute hypoxic respiratory failure History of pulmonary embolism -Currently saturating well on bilevel ventillation. Attempt to wean as tolerated. -CT chest upon admission showed significant bilateral pleural effusions. -Maintain oxygen saturation greater than 90% Cardiac Afib Hypertension -Xarelto 20mg PO daily -Holding home antihypertensives as patient is hypotensive -Holding home Lasix -Norepinepherine drip to maintain MAP greater than 65. Attempt to wean as tolerated -IV NS fluid bolus as necessary -Cardiac telemetry monitoring Gastrointestinal -Reinstate regular diet -Protonix 40mg IV daily Renal Acute kidney injury -likely prerenal etiology (resolved) Hyponatremia BPH, chronic urinary retention -IV fluids bolus as necessary. -Monitor suprapubic catheter output -Finasteride 5mg PO daily Infectious disease Sepsis secondary to pneumonia -Blood culture negative for growth after 48 hours -ID consult (Dr. Lott) appreciated -Zosyn 2.25grams IV Q6H (day #3) -Azithromycin 500mg IV daily (day#3) -Aspiration precautions Hematologic, Oncologic History of skin cancer (sarcoma) -Patient is s/p resection. Will need to obtain further history regarding treatment. -Surgery recommendations appreciated. FEN -No IV fluids indicated. Encourage judicious oral hydration. -Hyponatremia, hypokalemia- repleted. Follow CMP, replete as necessary -Chopped diet, with Ensure supplementation. Lines, Tubes, Drains -Right sided central venous catheter placed / -Chronic suprapubic catheter Prophylaxis -Xarelto 20mg PO daily -Protonix 40mg IV daily Disposition: Continue care in ICU Patient is DNR/ DNI Visit type - Emergency Visit Emergency Visit: Yes ED Registration Date: 05/10/18 Care time: The patient presented to the Emergency Department on the above date and was hospitalized for further evaluation of their emergent condition. - New Patient This patient is new to me today: No - Critical Care Critical Care patient: Yes Total Critical Care Time (in minutes): 37 Critical Care Statement: The care of this patient involved high complexity decision making to prevent further life threatening deterioration of the patient 's condition and/or to evaluate & treat vital organ system(s) failure or risk of failure. - Discharge Referral Referred to [facility] No
[2018-05-12] MEDS: KCL 10 MEQ IVPB 10 MEQ/100 ML INFUS.BAG IVPB SCH ×3 (08:59→15:31)
--- NOTE | 2018-05-12 09:58 | PN ---
Progress Note (short form) - Note Progress Note: Events noted on pressor support Off BIPAP currently awake responding to questions Vital Signs - 24 hr 05/11/18 05/11/18 05/11/18 11:34 12:00 14:00 Temperature 98.9 F Pulse Rate 86 88 Respiratory 25 H 24 H Rate Blood Pressure 105/55 L 88/65 L O2 Sat by Pulse 93 L Oximetry (%) 05/11/18 05/11/18 05/11/18 14:45 16:00 16:19 Temperature Pulse Rate 85 90 Respiratory 25 H Rate Blood Pressure 86/53 L 124/56 L O2 Sat by Pulse 95 Oximetry (%) 05/11/18 05/11/18 05/11/18 18:00 18:35 19:37 Temperature 98.9 F Pulse Rate 83 83 Respiratory 25 H 22 H Rate Blood Pressure 130/66 131/61 O2 Sat by Pulse 93 L Oximetry (%) 05/11/18 05/12/18 05/12/18 21:43 00:00 00:16 Temperature Pulse Rate 77 Respiratory 22 H Rate Blood Pressure 110/60 O2 Sat by Pulse 99 98 Oximetry (%) 05/12/18 05/12/18 05/12/18 02:00 03:29 04:00 Temperature 100.4 F H Pulse Rate 97 H 76 Respiratory 12 22 H Rate Blood Pressure 118/65 118/63 O2 Sat by Pulse 98 Oximetry (%) 05/12/18 05/12/18 05/12/18 06:00 06:51 08:00 Temperature Pulse Rate 92 H 110 H Respiratory 18 24 H Rate Blood Pressure 103/58 L 120/67 O2 Sat by Pulse 100 Oximetry (%) 05/12/18 05/12/18 08:21 09:42 Temperature Pulse Rate 102 H Respiratory Rate Blood Pressure 121/57 L O2 Sat by Pulse 99 Oximetry (%) Current Medications Generic Name Dose Route Start Last Admin Trade Name Freq PRN Reason Stop Dose Admin Escitalopram Oxalate 10 mg 05/11/18 10:00 05/11/18 09:55 Lexapro - PO 10 mg DAILY [facility] Administration Finasteride 5 mg 05/11/18 10:00 05/11/18 09:53 Proscar - PO 5 mg DAILY [facility] Administration Norepinephrine Bitartrate 8, 500 mls @ 18.75 mls/hr 05/10/18 15:30 05/12/18 09:42 000 mcg/ Dextrose IV 3 mcg/min TITR [facility] 11.25 mls/hr Titration Protocol 5 MCG/MIN Piperacillin Sod/Tazobactam 50 mls @ 100 mls/hr 05/10/18 21:00 05/12/18 03:00 Sod 2.25 gm/ Dextrose IVPB 100 mls/hr Q6H-IV [facility] Administration Protocol Azithromycin 500 mg in 250 mls @ 250 mls/hr 05/11/18 13:45 05/11/18 17:49 Zithromax 500mg Ivpb (Pre-Docked) IVPB 250 mls/hr DAILY [facility] Administration Potassium Chloride 10 meq in 100 mls @ 100 mls/hr 05/12/18 07:45 05/12/18 10: 03 Potassium Chloride 10 Meq Premix Ivpb - IVPB 05/12/18 10:44 100 mls/hr Q60M [facility] Administration Mirtazapine 15 mg 05/11/18 22:00 05/11/18 21:22 Remeron - PO 15 mg HS [facility] Administration Pantoprazole Sodium 40 mg 05/11/18 11:30 05/11/18 12:47 Protonix Iv IVPUSH 40 mg DAILY [facility] Administration Rivaroxaban 20 mg 05/10/18 18:00 05/11/18 17:49 Xarelto - PO 20 mg DAILY@1800 [facility] Administration Laboratory Results - last 24 hr 05/12/18 05/12/18 05:30 05:30 WBC 9.1 RBC 2.59 L Hgb 8.0 L Hct 22.7 L MCV 87.4 MCH 30.8 MCHC 35.2 RDW 17.5 H Plt Count 190 D MPV 8.0 Sodium 132 L Potassium 2.6 L* Chloride 99 Carbon Dioxide 25 Anion Gap 8 BUN 28 H Creatinine 0.9 Creat Clearance w eGFR > 60 Random Glucose 86 Calcium 8.1 L Phosphorus 2.5 Magnesium 2.0 Total Bilirubin 0.7 AST ALT 18 Alkaline Phosphatase 107 Total Protein 5.0 L Albumin 1.6 L No distress S1 S2 Irregular Lungs decreased breath sounds, no ronchi or rales heard Abd- soft, NT No edema Rt leg wound Rt TLC PLAN Sepsis Pneumonia Afib hypokalemia Severe malnutrition Septic shock acute hypoxic respiratory failure -- on Levophed -- IV antibiotics per ID -- continue Xarelto , monitoring HCT -- replace potassium -- spoke with RN - ICU monitoring -- pt is DNR/DNI Problem List - Problems (1) Severe protein-calorie malnutrition (Nava: less than 60% of standard weight ) Code(s): E43 - UNSPECIFIED SEVERE PROTEIN-CALORIE MALNUTRITION (2) Acute respiratory failure Code(s): J96.00 - ACUTE RESPIRATORY FAILURE, UNSP W HYPOXIA OR HYPERCAPNIA (3) History of pulmonary embolism Code(s): Z86.711 - PERSONAL HISTORY OF PULMONARY EMBOLISM (4) MRSA (methicillin resistant Staphylococcus aureus) colonization Code(s): Z22.322 - CARRIER OR SUSPECTED CARRIER OF METHICILLIN RESIS STAPH (5) Pneumonia Code(s): J18.9 - PNEUMONIA, UNSPECIFIED ORGANISM (6) Respiratory distress Code(s): R06.03 - ACUTE RESPIRATORY DISTRESS (7) Sepsis Code(s): A41.9 - SEPSIS, UNSPECIFIED ORGANISM (8) Afib Code(s): I48.91 - UNSPECIFIED ATRIAL FIBRILLATION
--- NOTE | 2018-05-12 10:52 | PN ---
Progress Note, Physician History of Present Illness: AWAKE, ALERT BREATHING NON LABORED LOW GRADE TEMP BC NO GROWTH - Current Medication List Current Medications: Active Medications Escitalopram Oxalate (Lexapro -) 10 mg PO DAILY [facility] Last Admin: 05/11/18 09:55 Dose: 10 mg Finasteride (Proscar -) 5 mg PO DAILY [facility] Last Admin: 05/11/18 09:53 Dose: 5 mg Norepinephrine Bitartrate 8, (000 mcg/ Dextrose) 500 mls @ 18.75 mls/hr IV TITR [facility]; Protocol Last Titration: 05/12/18 09:42 Dose: 3 mcg/min, 11.25 mls/hr Piperacillin Sod/Tazobactam (Sod 2.25 gm/ Dextrose) 50 mls @ 100 mls/hr IVPB Q6H-IV [facility]; Protocol Last Admin: 05/12/18 03:00 Dose: 100 mls/hr Azithromycin (Zithromax 500mg Ivpb (Pre-Docked)) 500 mg in 250 mls @ 250 mls/ hr IVPB DAILY [facility] Last Admin: 05/11/18 17:49 Dose: 250 mls/hr Mirtazapine (Remeron -) 15 mg PO HS [facility] Last Admin: 05/11/18 21:22 Dose: 15 mg Pantoprazole Sodium (Protonix Iv) 40 mg IVPUSH DAILY [facility] Last Admin: 05/11/18 12:47 Dose: 40 mg Rivaroxaban (Xarelto -) 20 mg PO DAILY@1800 [facility] Last Admin: 05/11/18 17:49 Dose: 20 mg - Objective Vital Signs: Vital Signs Temperature 100.4 F H 05/12/18 04:00 Pulse Rate 102 H 05/12/18 09:42 Respiratory Rate 24 H 05/12/18 08:00 Blood Pressure 121/57 L 05/12/18 09:42 O2 Sat by Pulse Oximetry (%) 99 05/12/18 08:21 Constitutional: Yes: No Distress Eyes: Yes: Conjunctiva Clear Cardiovascular: Yes: Regular Rate and Rhythm, S1, S2 Respiratory: Yes: Diminished Gastrointestinal: Yes: Normal Bowel Sounds, Soft. No: Tenderness Edema: No Labs: CBC, BMP 05/12/18 05:30 05/12/18 05:30 INR, PTT INR 1.88 (0.83-1.09) H 05/10/18 10:00 Assessment/Plan S/P RESP FAILURE BILATERAL PL EFFUSIONS R/P PNEUMONIA/ SEPSIS AZOTEMIA- IMPROVEDS HX MRSA CONTINUE EMPIRIC ZOSYN
--- NOTE | 2018-05-12 11:56 | CONSULT ---
<CastroRustynavid - Last Filed: 05/12/18 12:34> - Consultation REQUESTING PROVIDER: CONSULT REQUEST: We have been asked to surgically evaluate this patient for ( RLE ulcer). 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 Vascular consulted for evaluation of rle ulcers. Pt nonverbal but is able to nod yes or no to questioning. Medical history obtained from chart. When asked if ulcers have been present for a long time, pt nodded yes, denies pain in ulcers. PMHx: as above PSHx: sarcoma resection in the past Home Medications Medication Instructions Recorded Ascorbic Acid [Vitamin C -] 500 mg PO DAILY 05/10/18 Cholecalciferol (Vitamin D3) 2,000 unit PO DAILY 05/10/18 [D-2000] Escitalopram Oxalate [Lexapro -] 10 mg PO DAILY 05/10/18 Finasteride 5 mg PO DAILY 05/10/18 Furosemide [Lasix -] 20 mg PO DAILY 05/10/18 Furosemide [Lasix -] 20 mg PO DAILY 05/10/18 Metoprolol Succinate 25 mg PO DAILY 05/10/18 Mirtazapine [Remeron -] 15 mg PO DAILY 05/10/18 Multivit-Minerals/Ferrous Fum 15 ml PO DAILY 05/10/18 [Multivitamin Liquid] Nifedipine ER [Procardia Xl -] 90 mg PO DAILY 05/10/18 Ondansetron Injection [Zofran 2 mg IM Q8H 05/10/18 Injection] Piperacillin Sodium/Tazobactam 3.375 gm IV ONCE 05/10/18 [Zosyn 3.375 Gram Vial] Potassium Chloride 30 ml PO DAILY 05/10/18 Rivaroxaban [Xarelto -] 20 mg PO DAILY 05/10/18 Secukinumab [Cosentyx Pen] 150 mg SQ Q28D 05/10/18 Sucralfate [Carafate -] 1 gm PO DAILY 05/10/18 Zinc Sulfate 220 mg PO DAILY 05/10/18 Allergies Allergy/AdvReac Type Severity Reaction Status Date / Time No Known Allergies Allergy Verified 05/10/18 09:54 REVIEW OF SYSTEMS: Unable to answer PHYSICAL EXAM: GENERAL: Awake, alert, and fully oriented, in no acute distress. HEAD: Normal with no signs of trauma. LOWER EXTREMITIES: B/L with multiple small scabs, no erythema, no drainage. RLE with edema of toes/foot. No open ulcers. Vasc: 2+ b/l dp's. PT's not appreciated. Vital Signs Temperature 100.4 F H 05/12/18 04:00 Pulse Rate 102 H 05/12/18 09:42 Respiratory Rate 24 H 05/12/18 08:00 Blood Pressure 121/57 L 05/12/18 09:42 O2 Sat by Pulse Oximetry (%) 99 05/12/18 08:21 Lab Results WBC 9.1 K/mm3 (4.0-10.0) 05/12/18 05:30 RBC 2.59 M/mm3 (4.00-5.60) L 05/12/18 05:30 Hgb 8.0 GM/dL (11.7-16.9) L 05/12/18 05:30 Hct 22.7 % (35.4-49) L 05/12/18 05:30 MCV 87.4 fl (80-96) 05/12/18 05:30 MCHC 35.2 g/dl (32.0-35.9) 05/12/18 05:30 RDW 17.5 % (11.9-15.9) H 05/12/18 05:30 Plt Count 190 K/MM3 (134-434) D 05/12/18 05:30 Sodium 132 mmol/L (136-145) L 05/12/18 05:30 Potassium 2.6 mmol/L (3.5-5.1) L* 05/12/18 05:30 Chloride 99 mmol/L (98-107) 05/12/18 05:30 Carbon Dioxide 25 mmol/L (21-32) 05/12/18 05:30 Anion Gap 8 MMOL/L (8-16) 05/12/18 05:30 BUN 28 mg/dL (7-18) H 05/12/18 05:30 Creatinine 0.9 mg/dL (0.55-1.3) 05/12/18 05:30 Random Glucose 86 mg/dL (74-106) 05/12/18 05:30 Calcium 8.1 mg/dL (8.5-10.1) L 05/12/18 05:30 INR 1.88 (0.83-1.09) H 05/10/18 10:00 A/P: 83 y/o M known to Vascular (Dr Shields) w/ PMHx HTN, HLD, atrial fibrillation on Xarelto, PE/DVT, psoriasis, cirrhosis, BPH, 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 Vascular consulted for evaluation of rle ulcers. RLE with multiple small scabs, no clinical signs of infection. -Calcium alginate (ordered) to ulcers, cover with kerlix, change daily -Remainder of care per medical team above d/w attending Dr Shields <Derek Shields - Last Filed: 05/13/18 11:36> - Consultation REQUESTING PROVIDER: CONSULT REQUEST: We have been asked to surgically evaluate this patient for ( specify). PCP:Michelle Trinh HISTORY OF PRESENT ILLNESS: PMHx: PSHx: Home Medications Medication Instructions Recorded Ascorbic Acid [Vitamin C -] 500 mg PO DAILY 05/10/18 Cholecalciferol (Vitamin D3) 2,000 unit PO DAILY 05/10/18 [D-1999] Escitalopram Oxalate [Lexapro -] 10 mg PO DAILY 05/10/18 Finasteride 5 mg PO DAILY 05/10/18 Furosemide [Lasix -] 20 mg PO DAILY 05/10/18 Furosemide [Lasix -] 20 mg PO DAILY 05/10/18 Metoprolol Succinate 25 mg PO DAILY 05/10/18 Mirtazapine [Remeron -] 15 mg PO DAILY 05/10/18 Multivit-Minerals/Ferrous Fum 15 ml PO DAILY 05/10/18 [Multivitamin Liquid] Nifedipine ER [Procardia Xl -] 90 mg PO DAILY 05/10/18 Ondansetron Injection [Zofran 2 mg IM Q8H 05/10/18 Injection] Piperacillin Sodium/Tazobactam 3.375 gm IV ONCE 05/10/18 [Zosyn 3.375 Gram Vial] Potassium Chloride 30 ml PO DAILY 05/10/18 Rivaroxaban [Xarelto -] 20 mg PO DAILY 05/10/18 Secukinumab [Cosentyx Pen] 150 mg SQ Q28D 05/10/18 Sucralfate [Carafate -] 1 gm PO DAILY 05/10/18 Zinc Sulfate 220 mg PO DAILY 05/10/18 Allergies Allergy/AdvReac Type Severity Reaction Status Date / Time No Known Allergies Allergy Verified 05/10/18 09:54 REVIEW OF SYSTEMS: CONSTITUTIONAL: Absent: fever, chills, diaphoresis, generalized weakness, malaise, loss of appetite, weight change CARDIOVASCULAR: Absent: chest pain, syncope, palpitations, irregular heart rate, lightheadedness , peripheral edema RESPIRATORY: Absent: cough, shortness of breath, dyspnea with exertion, wheezing, stridor, hemoptysis GASTROINTESTINAL: Absent: abdominal pain, abdominal distension, nausea, vomiting, diarrhea, constipation, melena, hematochezia GENITOURINARY: Absent: dysuria, frequency, urgency, hesitancy, hematuria, flank pain, genital pain MUSCULOSKELETAL: Absent: myalgia, arthralgia, joint swelling, back pain, neck pain SKIN: Absent: rash, itching, pallor HEMATOLOGIC/IMMUNOLOGIC: Absent: easy bleeding, easy bruising, lymphadenopathy NEUROLOGIC: Absent: headache, focal weakness, paresthesias, dizziness, unsteady gait, seizure, mental status changes, bladder or bowel incontinence PSYCHIATRIC: Absent: anxiety, depression, suicidal or homicidal ideation, hallucinations. PHYSICAL EXAM: GENERAL: Awake, alert, and fully oriented, in no acute distress. HEAD: Normal with no signs of trauma. EYES: PERRL, sclera anicteric, conjunctiva clear. NECK: Normal ROM, supple without lymphadenopathy, JVD, or masses. LUNGS: Clear to auscultation bilat anteriorly. No wheezes, and no crackles. No accessory muscle use. HEART: Regular rate and rhythm. No murmurs ABDOMEN: Soft, nontender, not distended, normoactive bowel sounds, no guarding, no rebound, no masses. No organomegaly. MUSCULOSKELETAL: Normal ROM at all joints. No bony deformities or tenderness. No CVA tenderness. UPPER EXTREMITIES: 2+ pulses, warm, well-perfused. No cyanosis. Cap refill <2 seconds. No peripheral edema. LOWER EXTREMITIES: 2+ pulses, warm, well-perfused. No calf tenderness. No peripheral edema. NEUROLOGICAL: Normal speech, gait not observed. PSYCH: Cooperative. Good eye contact. Appropriate mood and affect. SKIN: Warm, dry, normal turgor, no rashes or lesions noted. Vital Signs Temperature 98.5 F 05/13/18 06:00 Pulse Rate 99 H 05/13/18 06:00 Respiratory Rate 18 05/13/18 06:00 Blood Pressure 115/66 05/13/18 06:00 O2 Sat by Pulse Oximetry (%) 100 05/13/18 11:20 Lab Results WBC 9.7 K/mm3 (4.0-10.0) 05/13/18 05:30 RBC 2.53 M/mm3 (4.00-5.60) L 05/13/18 05:30 Hgb 7.6 GM/dL (11.7-16.9) L 05/13/18 05:30 Hct 22.0 % (35.4-49) L 05/13/18 05:30 MCV 87.2 fl (80-96) 05/13/18 05:30 MCHC 34.3 g/dl (32.0-35.9) 05/13/18 05:30 RDW 18.0 % (11.9-15.9) H 05/13/18 05:30 Plt Count 208 K/MM3 (134-434) 05/13/18 05:30 Sodium 133 mmol/L (136-145) L 05/13/18 05:30 Potassium 3.0 mmol/L (3.5-5.1) L 05/13/18 05:30 Chloride 102 mmol/L (98-107) 05/13/18 05:30 Carbon Dioxide 24 mmol/L (21-32) 05/13/18 05:30 Anion Gap 8 MMOL/L (8-16) 05/13/18 05:30 BUN 21 mg/dL (7-18) H 05/13/18 05:30 Creatinine 0.7 mg/dL (0.55-1.3) 05/13/18 05:30 Random Glucose 93 mg/dL (74-106) 05/13/18 05:30 Calcium 7.8 mg/dL (8.5-10.1) L 05/13/18 05:30 INR 1.88 (0.83-1.09) H 05/10/18 10:00 Waqas has been under my care for many years for chronic lymphedema of the right leg after sarcoma resection in the past. He has chronic wounds on the claf which wax and wane in size. Treatment with Alginate and compression wraps keeps wounds under control.
[2018-05-12] MEDS: AZITHROMYCIN IVPB 500 MG/250 ML BAG IVPB SCH (12:50)
[2018-05-12] MEDS: FINASTERIDE 5 MG TABLET (FP) PO SCH (12:52)
[2018-05-12] MEDS: ESCITALOPRAM OXALATE 10 MG TABLET (FP) PO SCH (12:52)
--- NOTE | 2018-05-12 12:53 | PN ---
Teaching Attending Note Name of Resident: Sid Shaw ATTENDING PHYSICIAN STATEMENT I saw and evaluated the patient. I reviewed the resident's note and discussed the case with the resident. I agree with the resident's findings and plan as documented. SUBJECTIVE: Pt seen and examined in the ICU. Remains on levophed gtt. No fevers recorded. Saturations borderline on nasal cannula. OBJECTIVE: Vital Signs Period Temp Pulse Resp BP Sys/Contreras Pulse Ox Last 24 Hr 98.9 F-100.4 F 76-110 12-25 86-131/53-67 93-100 Intake & Output 05/09/18 05/10/18 05/11/18 05/12/18 23:59 23:59 23:59 23:59 Intake Total 3517 1742 286 Output Total 800 2100 400 Balance 6636 -196 -899 Weight 52.163 kg 50.7 kg 51.341 kg Gen: mildly tachypneic at rest Heart: RRR Lung: scattered rhonchi Abd: soft, nontender Ext: no edema CBC, BMP 05/12/18 05:30 05/12/18 05:30 Active Medications Escitalopram Oxalate (Lexapro -) 10 mg PO DAILY [facility] Last Admin: 05/11/18 09:55 Dose: 10 mg Finasteride (Proscar -) 5 mg PO DAILY [facility] Last Admin: 05/11/18 09:53 Dose: 5 mg Norepinephrine Bitartrate 8, (000 mcg/ Dextrose) 500 mls @ 18.75 mls/hr IV TITR [facility]; Protocol Last Titration: 05/12/18 09:42 Dose: 3 mcg/min, 11.25 mls/hr Piperacillin Sod/Tazobactam (Sod 2.25 gm/ Dextrose) 50 mls @ 100 mls/hr IVPB Q6H-IV [facility]; Protocol Last Admin: 05/12/18 03:00 Dose: 100 mls/hr Azithromycin (Zithromax 500mg Ivpb (Pre-Docked)) 500 mg in 250 mls @ 250 mls/ hr IVPB DAILY [facility] Last Admin: 05/11/18 17:49 Dose: 250 mls/hr Mirtazapine (Remeron -) 15 mg PO HS [facility] Last Admin: 05/11/18 21:22 Dose: 15 mg Pantoprazole Sodium (Protonix Iv) 40 mg IVPUSH DAILY [facility] Last Admin: 05/11/18 12:47 Dose: 40 mg Rivaroxaban (Xarelto -) 20 mg PO DAILY@1800 [facility] Last Admin: 05/11/18 17:49 Dose: 20 mg ASSESSMENT AND PLAN: Acute Hypoxic Respiratory Failure Pneumonia Septic Shock Lactic Acidosis Atrial Fibrillation h/o Pulmonary Emboli h/o Skin Ca Dementia - continue antibiotics - f/u cultures - IVF boluses as needed - taper levophed gtt to maintain MAP >65 - replete lytes - continue anticoagulation - O2 to keep SpO2 >90% - BiPAP to assist in work of breathing - PO as tolerated - DVT/GI prophylaxis - continue ICU monitoring critical care time spent in reviewing chart, evaluating patient and formulating plan 35 min
[2018-05-12] MEDS: PANTOPRAZOLE SODIUM 40 MG VIAL IVPUSH SCH (12:58)
[2018-05-12 13:31] LABS: ANION GAP 8 MMOL/L (8-16); BLOOD UREA NITROGEN 25 mg/dL (7-18); CALCIUM 8.2 mg/dL (8.5-10.1); CHLORIDE 102 mmol/L (98-107); CO2 24 mmol/L (21-32); CREATININE 0.7 mg/dL (0.55-1.3); GLUCOSE,RANDOM 69 mg/dL (74-106); SODIUM 134 mmol/L (136-145)
--- NOTE | 2018-05-12 13:44 | EKG ---
Test Reason : Blood Pressure : / mmHG Vent. Rate : 095 BPM Atrial Rate : 072 BPM P-R Int : 000 ms QRS Dur : 086 ms QT Int : 318 ms P-R-T Axes : 000 -31 075 degrees QTc Int : 399 ms ATRIAL FIBRILLATION LEFT AXIS DEVIATION NONSPECIFIC T WAVE ABNORMALITY ABNORMAL ECG WHEN COMPARED WITH ECG OF 10-MAY-2018 11:30, ATRIAL FIBRILLATION HAS REPLACED SINUS RHYTHM NONSPECIFIC T WAVE ABNORMALITY, WORSE IN ANTEROLATERAL LEADS Confirmed by MD Kris, Brandon ([id number]) on 05/12/2018 1:44:12 PM Referred By: Confirmed By:Brandon Ponce MD
[2018-05-12] MEDS ORDERED: SODIUM CHLORIDE 0.9% 500 ML INFUS.BAG IV ONE (14:20)
[2018-05-12] MEDS ORDERED: POTASSIUM CHLORIDE ORAL LIQUID 20 MEQ/15 ML PO ONE (15:48)
[2018-05-12] MEDS ORDERED: PT OWN MED DRAWER 7, Y5N ONE (16:33)
[2018-05-12] MEDS: NOREPINEPHRINE BITARTRATE 8,000 MCG in DEXTROSE 5%-WATER - 492 ML IV SCH (17:08)
[2018-05-12] MEDS: MIRTAZAPINE 15 MG TABLET (FP) PO SCH (22:15)
[2018-05-13] MEDS ORDERED: DEXTROSE 5%-WATER - 50 ML IVPB ONE ×4 (03:56→21:19)
[2018-05-13] MEDS ORDERED: PIPERACILLIN/TAZOBACTAM 2.25 GM VIAL IVPB ONE ×5 (03:56→21:19)
[2018-05-13] MEDS: PIPERACILLIN/TAZOB 2.25 GM 2.25 GM in DEXTROSE 5%-WATER - 50 ML IVPB SCH ×5 (04:44→21:32)
[2018-05-13 06:18] LABS: HEMOGLOBIN 7.6 GM/dL (11.7-16.9); MCHC 34.3 g/dl (32.0-35.9); MEAN CELL VOLUME 87.2 fl (80-96); MEAN PLT VOLUME 7.9 fl (7.5-11.1); PLATELET COUNT 208 K/MM3 (134-434); RBC 2.53 M/mm3 (4.00-5.60); WHITE BLOOD COUNT 9.7 K/mm3 (4.0-10.0)
[2018-05-13 06:54] LABS: ALBUMIN 1.4 g/dl (3.4-5.0); ALK PHOS 106 U/L (45-117); ANION GAP 8 MMOL/L (8-16); BILIRUBIN,TOTAL 0.6 mg/dL (0.2-1); BLOOD UREA NITROGEN 21 mg/dL (7-18); CALCIUM 7.8 mg/dL (8.5-10.1); CHLORIDE 102 mmol/L (98-107); CO2 24 mmol/L (21-32); CREATININE 0.7 mg/dL (0.55-1.3); GLUCOSE,RANDOM 93 mg/dL (74-106); MAGNESIUM 1.9 mg/dL (1.8-2.4); PHOSPHOROUS 1.4 mg/dL (2.5-4.9); SGPT/ALT 19 U/L (13-61); SODIUM 133 mmol/L (136-145); TOT PROT 4.5 g/dl (6.4-8.2)
[2018-05-13] MEDS: RIVAROXABAN 20 MG TABLET PO SCH ×2 (07:07→17:02)
[2018-05-13] MEDS ORDERED: POTASSIUM CHLORIDE 20 MEQ PREMIX IVPB 100 ML IVPB ONE (08:30)
--- NOTE | 2018-05-13 09:06 | PN ---
Progress Note, Physician History of Present Illness: AWAKE, ALERT NOT VERBALLY RESPONSIVE INDICATES NO PAIN BREATHING NON LABORED ON NRB TEMPS DOWN AFEBRILE REMAINS HYPOTENSIVE ON PRESSORS BC NO GROWTH - Current Medication List Current Medications: Active Medications Escitalopram Oxalate (Lexapro -) 10 mg PO DAILY [facility] Last Admin: 05/12/18 12:52 Dose: 10 mg Finasteride (Proscar -) 5 mg PO DAILY [facility] Last Admin: 05/12/18 12:52 Dose: 5 mg Norepinephrine Bitartrate 8, (000 mcg/ Dextrose) 500 mls @ 18.75 mls/hr IV TITR [facility]; Protocol Last Admin: 05/12/18 17:08 Dose: 5 mcg/min, 18.75 mls/hr Piperacillin Sod/Tazobactam (Sod 2.25 gm/ Dextrose) 50 mls @ 100 mls/hr IVPB Q6H-IV [facility]; Protocol Last Admin: 05/13/18 04:54 Dose: 100 mls/hr Azithromycin (Zithromax 500mg Ivpb (Pre-Docked)) 500 mg in 250 mls @ 250 mls/ hr IVPB DAILY [facility] Last Admin: 05/12/18 12:50 Dose: 250 mls/hr Mirtazapine (Remeron -) 15 mg PO HS [facility] Last Admin: 05/12/18 22:15 Dose: 15 mg Pantoprazole Sodium (Protonix Iv) 40 mg IVPUSH DAILY [facility] Last Admin: 05/12/18 12:58 Dose: 40 mg Potassium Chloride (Potassium Chloride Oral Liquid) 40 meq PO BID [facility] Rivaroxaban (Xarelto -) 20 mg PO DAILY@1800 [facility] Last Admin: 05/13/18 07:07 Dose: Not Given - Objective Vital Signs: Vital Signs Temperature 98.5 F 05/13/18 06:00 Pulse Rate 99 H 05/13/18 06:00 Respiratory Rate 18 05/13/18 06:00 Blood Pressure 115/66 05/13/18 06:00 O2 Sat by Pulse Oximetry (%) 100 05/13/18 08:55 Constitutional: Yes: No Distress, Thin Eyes: Yes: Conjunctiva Clear Cardiovascular: Yes: Regular Rate and Rhythm, S1, S2 Respiratory: Yes: Diminished Gastrointestinal: Yes: Normal Bowel Sounds, Soft. No: Tenderness Extremities: Yes: Other (DRY ULCER R LE) Labs: CBC, BMP 05/13/18 05:30 05/13/18 05:30 INR, PTT INR 1.88 (0.83-1.09) H 05/10/18 10:00 Assessment/Plan S/P RESP FAILURE BILATERAL PL EFFUSIONS R/O PNEUMONIA/ SEPSIS AZOTEMIA- IMPROVED HX MRSA CONTINUE EMPIRIC ZOSYN/ ZITHROMAX
[2018-05-13] MEDS: PANTOPRAZOLE SODIUM 40 MG VIAL IVPUSH SCH (09:27)
[2018-05-13] MEDS: FINASTERIDE 5 MG TABLET (FP) PO SCH (09:28)
[2018-05-13] MEDS: ESCITALOPRAM OXALATE 10 MG TABLET (FP) PO SCH (09:28)
[2018-05-13] MEDS: POTASSIUM CHLORIDE ORAL LIQUID 20 MEQ/15 ML PO SCH ×2 (09:30→21:32)
--- NOTE | 2018-05-13 10:41 | PN ---
Progress Note (short form) - Note Progress Note: on pressor support Off BIPAP currently awake breathing appears to be labored on NRB weak, frail looking Vital Signs - 24 hr 05/12/18 05/12/18 05/12/18 11:25 12:00 14:00 Temperature 98.7 F Pulse Rate 100 H 90 Respiratory 26 H 25 H Rate Blood Pressure 112/56 L 89/43 L O2 Sat by Pulse 97 Oximetry (%) 05/12/18 05/12/18 05/12/18 14:20 14:30 15:00 Temperature Pulse Rate 88 90 92 H Respiratory 25 H 22 H Rate Blood Pressure 86/45 L 85/60 L 107/47 L O2 Sat by Pulse 95 Oximetry (%) 05/12/18 05/12/18 05/12/18 16:00 16:20 18:00 Temperature 98.1 F Pulse Rate 98 H 96 H Respiratory 25 H 18 Rate Blood Pressure 90/48 L 113/74 O2 Sat by Pulse 96 Oximetry (%) 05/12/18 05/12/18 05/13/18 18:35 21:00 00:00 Temperature Pulse Rate 108 H Respiratory 18 18 Rate Blood Pressure 125/77 O2 Sat by Pulse 97 97 Oximetry (%) 05/13/18 05/13/18 05/13/18 02:00 04:00 06:00 Temperature 98.5 F Pulse Rate 108 H 97 H 99 H Respiratory 18 18 18 Rate Blood Pressure 125/77 112/66 115/66 O2 Sat by Pulse Oximetry (%) 05/13/18 08:55 Temperature Pulse Rate Respiratory Rate Blood Pressure O2 Sat by Pulse 100 Oximetry (%) Current Medications Generic Name Dose Route Start Last Admin Trade Name Freq PRN Reason Stop Dose Admin Escitalopram Oxalate 10 mg 05/11/18 10:00 05/13/18 09:28 Lexapro - PO 10 mg DAILY [facility] Administration Finasteride 5 mg 05/11/18 10:00 05/13/18 09:28 Proscar - PO 5 mg DAILY [facility] Administration Norepinephrine Bitartrate 8, 500 mls @ 18.75 mls/hr 05/10/18 15:30 05/12/18 17:08 000 mcg/ Dextrose IV 5 mcg/min TITR [facility] 18.75 mls/hr Administration Protocol 5 MCG/MIN Piperacillin Sod/Tazobactam 50 mls @ 100 mls/hr 05/10/18 21:00 05/13/18 09:23 Sod 2.25 gm/ Dextrose IVPB 100 mls/hr Q6H-IV [facility] Administration Protocol Azithromycin 500 mg in 250 mls @ 250 mls/hr 05/11/18 13:45 05/12/18 12:50 Zithromax 500mg Ivpb (Pre-Docked) IVPB 250 mls/hr DAILY [facility] Administration Mirtazapine 15 mg 05/11/18 22:00 05/12/18 22:15 Remeron - PO 15 mg HS [facility] Administration Pantoprazole Sodium 40 mg 05/11/18 11:30 05/13/18 09:27 Protonix Iv IVPUSH 40 mg DAILY [facility] Administration Potassium Chloride 40 meq 05/13/18 10:00 05/13/18 09:30 Potassium Chloride Oral Liquid PO 40 meq BID [facility] Administration Rivaroxaban 20 mg 05/10/18 18:00 05/13/18 07:07 Xarelto - PO Not Given DAILY@1800 [facility] Laboratory Results - last 24 hr 05/12/18 05/13/18 05/13/18 12:55 05:30 05:30 WBC 9.7 RBC 2.53 L Hgb 7.6 L Hct 22.0 L MCV 87.2 MCH 30.0 MCHC 34.3 RDW 18.0 H Plt Count 208 MPV 7.9 Sodium 134 L 133 L Potassium 3.0 L 3.0 L Chloride 102 102 Carbon Dioxide 24 24 Anion Gap 8 8 BUN 25 H 21 H Creatinine 0.7 0.7 Creat Clearance w eGFR > 60 > 60 Random Glucose 69 L 93 Calcium 8.2 L 7.8 L Phosphorus 1.4 L Magnesium 1.9 Total Bilirubin 0.6 AST ALT 19 Alkaline Phosphatase 106 Total Protein 4.5 L Albumin 1.4 L S1 S2 Irregular Lungs decreased breath sounds, no ronchi or rales heard Abd- soft, NT No edema Rt leg wound Rt TLC PLAN Sepsis Pneumonia Afib hypokalemia Severe malnutrition Septic shock acute hypoxic respiratory failure -- on Levophed -- IV antibiotics per ID -- continue Xarelto , monitoring HCT -- replace potassium - ICU monitoring -- pt is DNR/DNI Problem List - Problems (1) Severe protein-calorie malnutrition (Nava: less than 60% of standard weight ) Code(s): E43 - UNSPECIFIED SEVERE PROTEIN-CALORIE MALNUTRITION (2) Acute respiratory failure Code(s): J96.00 - ACUTE RESPIRATORY FAILURE, UNSP W HYPOXIA OR HYPERCAPNIA (3) History of pulmonary embolism Code(s): Z86.711 - PERSONAL HISTORY OF PULMONARY EMBOLISM (4) MRSA (methicillin resistant Staphylococcus aureus) colonization Code(s): Z22.322 - CARRIER OR SUSPECTED CARRIER OF METHICILLIN RESIS STAPH (5) Pneumonia Code(s): J18.9 - PNEUMONIA, UNSPECIFIED ORGANISM (6) Respiratory distress Code(s): R06.03 - ACUTE RESPIRATORY DISTRESS (7) Sepsis Code(s): A41.9 - SEPSIS, UNSPECIFIED ORGANISM (8) Afib Code(s): I48.91 - UNSPECIFIED ATRIAL FIBRILLATION
[2018-05-13] MEDS: AZITHROMYCIN IVPB 500 MG/250 ML BAG IVPB SCH (10:53)
--- NOTE | 2018-05-13 11:56 | PN ---
Physical Exam: SUBJECTIVE: Patient seen and examined at bedside this morning. No acute overnight events. He has been weaned off bilevel ventilation, and is saturating well on 100% nonrebreather mask. He is currently on Norepinepherine drip and IV normal saline bolus for blood pressure support. OBJECTIVE: Vital Signs Period Temp Pulse Resp BP Sys/Contreras Pulse Ox Last 24 Hr 98.1 F-98.7 F 88-108 18-26 85-125/43-77 95-100 GENERAL: Awake, alert, oriented X0 on 100% nonrebreather mask. No acute distress. Answering basic questions by nodding head. HEAD: Normocephalic, atraumatic EYES: PERRL, EOMI, sclera anicteric, conjunctiva clear. EARS, NOSE, THROAT: Oropharynx clear without exudates. Dry mucous membranes. NECK: Supple. Right sided central venous catheter. LUNGS: Breath sounds equal, clear to auscultation bilaterally. No wheezes, and no crackles. Using accessory muscles of respiration. HEART: Irregular rate and rhythm, normal S1 and S2 without murmur, rub or gallop. ABDOMEN: Soft, nontender, not distended, normoactive bowel sounds, no guarding, no rebound, no masses. No hepatomegaly or splenomegaly. Suprapubic catheter noted, insertion site clean, dry, non draining. UPPER EXTREMITIES: 2+ radial pulses bilaterally. No peripheral edema. LOWER EXTREMITIES: 1+ dorsalis pedis pulses bilaterally. No calf tenderness. No peripheral edema. NEUROLOGICAL: Patient freely moves bilateral upper and lower extremities. SKIN: Warm, dry. Numerous excoriations noted on right lower extremity, bandaged. Laboratory Results - last 24 hr 05/12/18 05/13/18 05/13/18 12:55 05:30 05:30 WBC 9.7 RBC 2.53 L Hgb 7.6 L Hct 22.0 L MCV 87.2 MCH 30.0 MCHC 34.3 RDW 18.0 H Plt Count 208 MPV 7.9 Sodium 134 L 133 L Potassium 3.0 L 3.0 L Chloride 102 102 Carbon Dioxide 24 24 Anion Gap 8 8 BUN 25 H 21 H Creatinine 0.7 0.7 Creat Clearance w eGFR > 60 > 60 Random Glucose 69 L 93 Calcium 8.2 L 7.8 L Phosphorus 1.4 L Magnesium 1.9 Total Bilirubin 0.6 AST ALT 19 Alkaline Phosphatase 106 Total Protein 4.5 L Albumin 1.4 L Active Medications Generic Name Dose Route Start Last Admin Trade Name Freq PRN Reason Stop Dose Admin Escitalopram Oxalate 10 mg 05/11/18 10:00 05/13/18 09:28 Lexapro - PO 10 mg DAILY CLYDE Administration Finasteride 5 mg 05/11/18 10:00 05/13/18 09:28 Proscar - PO 5 mg DAILY CLYDE Administration Norepinephrine Bitartrate 8, 500 mls @ 18.75 mls/hr 05/10/18 15:30 05/12/18 17:08 000 mcg/ Dextrose IV 5 mcg/min TITR CLYDE 18.75 mls/hr Administration Protocol 5 MCG/MIN Piperacillin Sod/Tazobactam 50 mls @ 100 mls/hr 05/10/18 21:00 05/13/18 09:23 Sod 2.25 gm/ Dextrose IVPB 100 mls/hr Q6H-IV CLYDE Administration Protocol Azithromycin 500 mg in 250 mls @ 250 mls/hr 05/11/18 13:45 05/13/18 10:53 Zithromax 500mg Ivpb (Pre-Docked) IVPB 250 mls/hr DAILY CLYDE Administration Mirtazapine 15 mg 05/11/18 22:00 05/12/18 22:15 Remeron - PO 15 mg HS CLYDE Administration Pantoprazole Sodium 40 mg 05/11/18 11:30 05/13/18 09:27 Protonix Iv IVPUSH 40 mg DAILY CLYDE Administration Potassium Chloride 40 meq 05/13/18 10:00 05/13/18 09:30 Potassium Chloride Oral Liquid PO 40 meq BID CLYDE Administration Rivaroxaban 20 mg 05/10/18 18:00 05/13/18 07:07 Xarelto - PO Not Given DAILY@1800 [facility] ASSESSMENT/PLAN: Patient is an 83 year old male from [facility] with history of cognitive impairment , hypertension, Afib and pulmonary embolism (on Xarelto) skin cancer s/p right lower extremity excision, cirrhosis, chronic urinary retention, UTI secondary to enlarged prostate presented to ED with complaint of shortness of breath. Admitted to ICU for acute hypoxic respiratory distress. Neurological History of cognitive impairment -Currently alert, oriented X0. Able to nod to answer questions. -Mirtazapine 15mg PO daily -Escitalopram 10mg PO daily -Monitor for signs of mental status changes Pulmonary Acute hypoxic respiratory failure History of pulmonary embolism -Currently saturating well on nonrebreather mask. Attempt to wean as tolerated. -CT chest upon admission showed significant bilateral pleural effusions. -Follow chest xray -Follow ABG -Maintain oxygen saturation greater than 90% Cardiac Afib Hypertension -Xarelto 20mg PO daily -Holding home antihypertensives as patient is hypotensive -Holding home Lasix -Norepinepherine drip and IV normal saline bolus to maintain MAP greater than 65. Attempt to wean as tolerated -Cardiac telemetry monitoring Gastrointestinal -Chopped diet with Ensure supplementation -Protonix 40mg IV daily Renal Acute kidney injury -likely prerenal etiology (resolved) Hyponatremia BPH, chronic urinary retention -IV fluids bolus as necessary. -Monitor suprapubic catheter output -Finasteride 5mg PO daily Infectious disease Sepsis secondary to pneumonia -Blood culture negative for growth after 48 hours -ID consult (Dr. Lott) appreciated -Empiric Zosyn 2.25grams IV Q6H (day #4) -Azithromycin 500mg IV daily (day#4) -Aspiration precautions Hematologic, Oncologic History of skin cancer (sarcoma) -Patient is s/p resection. Will need to obtain further history regarding treatment. -Surgery recommendations appreciated. FEN -No IV fluids indicated. Encourage judicious oral hydration. -Hyponatremia, hypokalemia- repleted. Follow CMP, replete as necessary -Chopped diet, with Ensure supplementation. Lines, Tubes, Drains -Right sided central venous catheter placed /03 -Chronic suprapubic catheter Prophylaxis -Xarelto 20mg PO daily -Protonix 40mg IV daily Disposition: Continue care in ICU. Patient is DNR/ DNI Visit type - Emergency Visit Emergency Visit: Yes ED Registration Date: 05/10/18 Care time: The patient presented to the Emergency Department on the above date and was hospitalized for further evaluation of their emergent condition. - New Patient This patient is new to me today: No - Critical Care Critical Care patient: Yes Total Critical Care Time (in minutes): 35 Critical Care Statement: The care of this patient involved high complexity decision making to prevent further life threatening deterioration of the patient 's condition and/or to evaluate & treat vital organ system(s) failure or risk of failure. - Discharge Referral Referred to [facility] Med P.C.: No
--- NOTE | 2018-05-13 12:45 | PN ---
Teaching Attending Note Name of Resident: Sid Shaw ATTENDING PHYSICIAN STATEMENT I saw and evaluated the patient. I reviewed the resident's note and discussed the case with the resident. I agree with the resident's findings and plan as documented. SUBJECTIVE: Pt seen and examined in the ICU. BiPAP overnight, now on NRB. Remains on levophed gtt. More lethargic today. OBJECTIVE: Vital Signs Period Temp Pulse Resp BP Sys/Contreras Pulse Ox Last 24 Hr 98.1 F-98.7 F 88-108 18-25 85-125/43-77 95-100 Intake & Output 05/10/18 05/11/18 05/12/18 05/13/18 23:59 23:59 23:59 23:59 Intake Total 3514 1742 1834 Output Total 800 2100 1000 300 Balance 2714 -358 834 -300 Weight 52.163 kg 50.7 kg 51.256 kg 41 kg Gen: lethargic, more tachypneic Heart: RRR Lung: scattered rhonchi Abd: soft, nontender Ext: no edema CBC, BMP 05/13/18 05:30 05/13/18 05:30 Active Medications Escitalopram Oxalate (Lexapro -) 10 mg PO DAILY CLYDE Last Admin: 05/13/18 09:28 Dose: 10 mg Finasteride (Proscar -) 5 mg PO DAILY CLYDE Last Admin: 05/13/18 09:28 Dose: 5 mg Norepinephrine Bitartrate 8, (000 mcg/ Dextrose) 500 mls @ 18.75 mls/hr IV TITR CLYDE; Protocol Last Admin: 05/12/18 17:08 Dose: 5 mcg/min, 18.75 mls/hr Piperacillin Sod/Tazobactam (Sod 2.25 gm/ Dextrose) 50 mls @ 100 mls/hr IVPB Q6H-IV CLYDE; Protocol Last Admin: 05/13/18 09:23 Dose: 100 mls/hr Azithromycin (Zithromax 500mg Ivpb (Pre-Docked)) 500 mg in 250 mls @ 250 mls/ hr IVPB DAILY CLYDE Last Admin: 05/13/18 10:53 Dose: 250 mls/hr Mirtazapine (Remeron -) 15 mg PO HS CLYDE Last Admin: 05/12/18 22:15 Dose: 15 mg Pantoprazole Sodium (Protonix Iv) 40 mg IVPUSH DAILY [facility] Last Admin: 05/13/18 09:27 Dose: 40 mg Potassium Chloride (Potassium Chloride Oral Liquid) 40 meq PO BID [facility] Last Admin: 05/13/18 09:30 Dose: 40 meq Rivaroxaban (Xarelto -) 20 mg PO DAILY@1800 [facility] Last Admin: 05/13/18 07:07 Dose: Not Given ASSESSMENT AND PLAN: Acute Hypoxic Respiratory Failure Pneumonia Septic Shock Lactic Acidosis Atrial Fibrillation h/o Pulmonary Emboli h/o Skin Ca Dementia - continue antibiotics - f/u cultures - IVF boluses as needed - taper levophed gtt to maintain MAP >65 - replete lytes - continue anticoagulation - O2 to keep SpO2 >90% - BiPAP to assist in work of breathing - PO as tolerated - DVT/GI prophylaxis - continue ICU monitoring critical care time spent in reviewing chart, evaluating patient and formulating plan 35 min
[2018-05-13 13:56] LABS: ALLENS TEST POSITIVE
[2018-05-13 13:57] LABS: ARTERIAL BLOOD GAS PCO2 35.1 mmHg (35-45); ARTERIAL BLOOD GAS PO2 83.3 mmHg (68-100); ARTERIAL BLOOD GAS pH 7.42 (7.35-7.45)
[2018-05-13 14:06] LABS: ARTERIAL BLOOD GAS BASE EXCESS -1.5 meq/l (-2-2)
[2018-05-13] MEDS: NOREPINEPHRINE BITARTRATE 8,000 MCG in DEXTROSE 5%-WATER - 492 ML IV SCH (17:09)
[2018-05-13] MEDS: MIRTAZAPINE 15 MG TABLET (FP) PO SCH (21:33)
[2018-05-14] MEDS ORDERED: METOPROLOL TARTRATE 25 MG TABLET (FP) PO ONE (03:50)
[2018-05-14] MEDS ORDERED: DEXTROSE 5%-WATER - 50 ML IVPB ONE ×4 (04:03→21:22)
[2018-05-14] MEDS ORDERED: PIPERACILLIN/TAZOBACTAM 2.25 GM VIAL IVPB ONE ×4 (04:03→21:21)
[2018-05-14] MEDS: PIPERACILLIN/TAZOB 2.25 GM 2.25 GM in DEXTROSE 5%-WATER - 50 ML IVPB SCH ×4 (04:32→21:23)
[2018-05-14 06:31] LABS: HEMATOCRIT 22.5 % (35.4-49); HEMOGLOBIN 7.6 GM/dL (11.7-16.9); MCH 29.9 pg (25.7-33.7); MCHC 33.8 g/dl (32.0-35.9); MEAN CELL VOLUME 88.3 fl (80-96); MEAN PLT VOLUME 7.6 fl (7.5-11.1); PLATELET COUNT 249 K/MM3 (134-434); RBC 2.55 M/mm3 (4.00-5.60); RDW 17.8 % (11.9-15.9); WHITE BLOOD COUNT 8.5 K/mm3 (4.0-10.0)
[2018-05-14 07:23] LABS: ALBUMIN 1.4 g/dl (3.4-5.0); ALK PHOS 107 U/L (45-117); ANION GAP 8 MMOL/L (8-16); BILIRUBIN,TOTAL 1.4 mg/dL (0.2-1); BLOOD UREA NITROGEN 18 mg/dL (7-18); CALCIUM 7.7 mg/dL (8.5-10.1); CHLORIDE 107 mmol/L (98-107); CO2 25 mmol/L (21-32); CREATININE 0.8 mg/dL (0.55-1.3); GLUCOSE,RANDOM 112 mg/dL (74-106); MAGNESIUM 1.7 mg/dL (1.8-2.4); PHOSPHOROUS 1.4 mg/dL (2.5-4.9); POTASSIUM 3.5 mmol/L (3.5-5.1); SGOT/AST 16 U/L (15-37); SGPT/ALT 15 U/L (13-61); SODIUM 140 mmol/L (136-145); TOT PROT 4.7 g/dl (6.4-8.2)
[2018-05-14] MEDS ORDERED: MAGNESIUM OXIDE 400 MG TABLET (FP) PO ONE (08:30)
[2018-05-14] MEDS ORDERED: POTASSIUM PHOSPHATE 20 MM in DEXTROSE 5%-WATER - 250 ML IVPB ONE (08:45)
--- NOTE | 2018-05-14 08:54 | PN ---
Physical Exam: SUBJECTIVE: Patient seen and examined at bedside this morning. Overnight, he was tachycardic, and his Metoprolol was reinstated for rate control. He remains on Norepinepherine drip and IV normal saline bolus for blood pressure support. OBJECTIVE: Vital Signs Period Temp Pulse Resp BP Sys/Contrears Pulse Ox Last 24 Hr 98 F-99.3 F 72-124 14-28 104-139/56-81 93-100 GENERAL: Awake, alert, oriented X0 on 100% nonrebreather mask. No acute distress. Answering basic questions by nodding head. HEAD: Normocephalic, atraumatic EYES: PERRL, EOMI, sclera anicteric, conjunctiva clear. EARS, NOSE, THROAT: Oropharynx clear without exudates. Dry mucous membranes. NECK: Supple. Right sided central venous catheter. LUNGS: Breath sounds equal, clear to auscultation bilaterally. No wheezes, and no crackles. Using accessory muscles of respiration. HEART: Irregular rate and rhythm, normal S1 and S2 without murmur, rub or gallop. ABDOMEN: Soft, nontender, not distended, normoactive bowel sounds, no guarding, no rebound, no masses. No hepatomegaly or splenomegaly. Suprapubic catheter noted, insertion site clean, dry, non draining. UPPER EXTREMITIES: 2+ radial pulses bilaterally. No peripheral edema. LOWER EXTREMITIES: 1+ dorsalis pedis pulses bilaterally. No calf tenderness. No peripheral edema. NEUROLOGICAL: Patient freely moves bilateral upper and lower extremities. SKIN: Warm, dry. Numerous excoriations noted on right lower extremity, bandaged. Laboratory Results - last 24 hr 05/13/18 05/14/18 05/14/18 12:50 05:30 05:30 WBC 8.5 RBC 2.55 L Hgb 7.6 L Hct 22.5 L MCV 88.3 MCH 29.9 MCHC 33.8 RDW 17.8 H Plt Count 249 MPV 7.6 Anticoagulation Therapy No Result Required. Puncture Site Right radial ABG pH 7.42 ABG pCO2 at Pt Temp 35.1 ABG pO2 at Pt Temp 83.3 ABG HCO3 22.2 ABG O2 Sat (Measured) 95.0 ABG O2 Content 9.0 L* ABG Base Excess -1.5 Tod Test Positive O2 Delivery Device Non rebreather mask Oxygen Flow Rate No Result Required. Vent Mode No Result Required. Vent Rate No Result Required. Mechanical Rate No Result Required. Pressure Support Vent No Result Required. Sodium 140 Potassium 3.5 Chloride 107 Carbon Dioxide 25 Anion Gap 8 BUN 18 Creatinine 0.8 Creat Clearance w eGFR > 60 Random Glucose 112 H Calcium 7.7 L Phosphorus 1.4 L Magnesium 1.7 L Total Bilirubin 1.4 H AST 16 ALT 15 Alkaline Phosphatase 107 Total Protein 4.7 L Albumin 1.4 L Active Medications Generic Name Dose Route Start Last Admin Trade Name Freq PRN Reason Stop Dose Admin Finasteride 5 mg 05/11/18 10:00 05/13/18 09:28 Proscar - PO 5 mg DAILY CLYDE Administration Norepinephrine Bitartrate 8, 500 mls @ 18.75 mls/hr 05/10/18 15:30 05/14/18 06:01 000 mcg/ Dextrose IV 4 mcg/min TITR CLYDE 15 mls/hr Titration Protocol 5 MCG/MIN Piperacillin Sod/Tazobactam 50 mls @ 100 mls/hr 05/10/18 21:00 05/14/18 04:32 Sod 2.25 gm/ Dextrose IVPB 100 mls/hr Q6H-IV CLYDE Administration Protocol Azithromycin 500 mg in 250 mls @ 250 mls/hr 05/11/18 13:45 05/13/18 10:53 Zithromax 500mg Ivpb (Pre-Docked) IVPB 250 mls/hr DAILY CLYDE Administration Potassium Phosphate 20 mm/ 256.6667 mls @ 62.5 mls/hr 05/14/18 08:45 Dextrose IVPB 05/14/18 12:51 ONCE ONE Mirtazapine 15 mg 05/11/18 22:00 05/13/18 21:33 Remeron - PO 15 mg HS CLYDE Administration Pantoprazole Sodium 40 mg 05/11/18 11:30 05/13/18 09:27 Protonix Iv IVPUSH 40 mg DAILY CLYDE Administration Potassium Chloride 40 meq 05/13/18 10:00 05/13/18 21:32 Potassium Chloride Oral Liquid PO 40 meq BID CLYDE Administration Rivaroxaban 20 mg 05/10/18 18:00 05/13/18 17:02 Xarelto - PO 20 mg DAILY@1800 CLYDE Administration ASSESSMENT/PLAN: Patient is an 83 year old male from [facility] with history of cognitive impairment , hypertension, Afib and pulmonary embolism (on Xarelto) skin cancer s/p right lower extremity excision, cirrhosis, chronic urinary retention, UTI secondary to enlarged prostate presented to ED with complaint of shortness of breath. Admitted to ICU for acute hypoxic respiratory distress. Neurological History of cognitive impairment -Currently alert, oriented X0. Able to nod to answer questions. -Mirtazapine 15mg PO daily -Escitalopram 10mg PO daily -Monitor for signs of mental status changes Pulmonary Acute hypoxic respiratory failure History of pulmonary embolism -Currently saturating well on nonrebreather mask. Attempt to wean as tolerated. -CT chest upon admission showed significant bilateral pleural effusions. -Chest xray shows bilateral pleural congestive changes. Will reinstate home Lasix once patient is off Norepinepherine. -Maintain oxygen saturation greater than 90% Cardiac Afib Hypertension -Xarelto 20mg PO daily -Metoprolol 25mg PO daily for rate control -Holding home Lasix. Will reinstate once off Norepinepherine. -Norepinepherine drip and IV normal saline bolus to maintain MAP greater than 65. Attempt to wean as tolerated -Cardiac telemetry monitoring Gastrointestinal -Chopped diet with Ensure supplementation -Speech, swallow recommendations appreciated. -Protonix 40mg IV daily Renal Acute kidney injury -likely prerenal etiology (resolved) Hyponatremia -resolved BPH, chronic urinary retention -Monitor suprapubic catheter output -Finasteride 5mg PO daily Infectious disease Sepsis secondary to pneumonia -Blood culture negative for growth after 72 hours -Urine negative for legionella, pneumonia antigens -ID consult (Dr. Lott) appreciated -Empiric Zosyn 2.25grams IV Q6H (day #5) -Patient completed 5 days Azithromycin -Aspiration precautions Hematologic, Oncologic History of skin cancer (sarcoma) -Patient is s/p resection. Will need to obtain further history regarding treatment. -Surgery recommendations appreciated. FEN -No IV fluids indicated -Hypomagnesemia, hypophosphatemia - repleted. Follow CMP, replete as necessary -Chopped diet, with Ensure supplementation. Lines, Tubes, Drains -Right sided central venous catheter placed 05/10 -Chronic suprapubic catheter Prophylaxis -Xarelto 20mg PO daily -Protonix 40mg IV daily Disposition: Continue care in ICU. Patient is DNR/ DNI Visit type - Emergency Visit Emergency Visit: Yes ED Registration Date: 05/10/18 Care time: The patient presented to the Emergency Department on the above date and was hospitalized for further evaluation of their emergent condition. - New Patient This patient is new to me today: No - Critical Care Critical Care patient: Yes Total Critical Care Time (in minutes): 35 Critical Care Statement: The care of this patient involved high complexity decision making to prevent further life threatening deterioration of the patient 's condition and/or to evaluate & treat vital organ system(s) failure or risk of failure. - Discharge Referral Referred to [facility] Med P.C.: No
--- NOTE | 2018-05-14 10:02 | PN ---
Progress Note (short form) - Note Progress Note: on pressor support Off BIPAP currently coughing on drinking Ensure poor appetite weak, frail looking Vital Signs - 24 hr 05/13/18 05/13/18 05/13/18 21:00 22:00 23:52 Temperature 99.3 F Pulse Rate 107 H Respiratory 22 H Rate Blood Pressure 120/65 O2 Sat by Pulse 99 99 Oximetry (%) 05/14/18 05/14/18 05/14/18 00:00 02:00 03:44 Temperature 98.4 F Pulse Rate 100 H 72 124 H Respiratory 21 H 22 H 28 H Rate Blood Pressure 134/81 127/71 139/63 O2 Sat by Pulse Oximetry (%) 05/14/18 05/14/18 05/14/18 04:30 06:00 06:01 Temperature 98.0 F Pulse Rate 89 96 H Respiratory 14 Rate Blood Pressure 104/58 L 132/56 L O2 Sat by Pulse 100 Oximetry (%) 05/14/18 05/14/18 05/14/18 08:00 08:47 09:00 Temperature Pulse Rate 83 Respiratory Rate Blood Pressure 113/67 O2 Sat by Pulse 98 93 L Oximetry (%) 05/14/18 05/14/18 05/14/18 10:00 11:48 12:00 Temperature Pulse Rate 70 85 Respiratory Rate Blood Pressure 110/60 98/62 O2 Sat by Pulse 97 Oximetry (%) 05/14/18 05/14/18 05/14/18 13:48 15:00 16:00 Temperature Pulse Rate 83 81 Respiratory Rate Blood Pressure 118/58 L 106/58 L O2 Sat by Pulse 95 Oximetry (%) 05/14/18 05/14/18 05/14/18 16:25 18:00 18:33 Temperature Pulse Rate 84 Respiratory Rate Blood Pressure 118/58 L O2 Sat by Pulse 93 L 92 L Oximetry (%) 05/14/18 20:00 Temperature 98.4 F Pulse Rate 103 H Respiratory 24 H Rate Blood Pressure 107/64 O2 Sat by Pulse Oximetry (%) Current Medications Generic Name Dose Route Start Last Admin Trade Name Freq PRN Reason Stop Dose Admin Acetaminophen 650 mg 05/14/18 19:29 Tylenol - PO Q6H PRN FEVER Acetaminophen 650 mg 05/14/18 19:33 Tylenol - PO Q6H PRN PAIN SCALE 1-5 Albuterol/Ipratropium 1 amp 05/14/18 12:00 05/14/18 20:11 Duoneb - NEB 1 amp RQID CLYDE Administration Amino Acids 30 ml 05/14/18 17:30 05/14/18 18:24 Prosource No Carb Liquid Pkt PO 30 ml BID@0800,1730 CLYDE Administration Finasteride 5 mg 05/11/18 10:00 05/14/18 10:30 Proscar - PO 5 mg DAILY CLYDE Administration Norepinephrine Bitartrate 8, 500 mls @ 18.75 mls/hr 05/10/18 15:30 05/14/18 18:24 000 mcg/ Dextrose IV Not Given TITR CLYDE Protocol 5 MCG/MIN Piperacillin Sod/Tazobactam 50 mls @ 100 mls/hr 05/10/18 21:00 05/14/18 17:00 Sod 2.25 gm/ Dextrose IVPB 100 mls/hr Q6H-IV CLYDE Administration Protocol Mirtazapine 15 mg 05/11/18 22:00 05/13/18 21:33 Remeron - PO 15 mg HS CLYDE Administration Pantoprazole Sodium 40 mg 05/11/18 11:30 05/14/18 10:30 Protonix Iv IVPUSH 40 mg DAILY CLYDE Administration Potassium Chloride 40 meq 05/13/18 10:00 05/14/18 10:30 Potassium Chloride Oral Liquid PO 40 meq BID CLYDE Administration Rivaroxaban 20 mg 05/10/18 18:00 05/14/18 18:24 Xarelto - PO 20 mg DAILY@1800 CLYDE Administration Laboratory Results - last 24 hr 05/14/18 05/14/18 05:30 05:30 WBC 8.5 RBC 2.55 L Hgb 7.6 L Hct 22.5 L MCV 88.3 MCH 29.9 MCHC 33.8 RDW 17.8 H Plt Count 249 MPV 7.6 Sodium 140 Potassium 3.5 Chloride 107 Carbon Dioxide 25 Anion Gap 8 BUN 18 Creatinine 0.8 Creat Clearance w eGFR > 60 Random Glucose 112 H Calcium 7.7 L Phosphorus 1.4 L Magnesium 1.7 L Total Bilirubin 1.4 H AST 16 ALT 15 Alkaline Phosphatase 107 Total Protein 4.7 L Albumin 1.4 L S1 S2 Irregular Lungs decreased breath sounds,ronchi+ Abd- soft, NT No edema Rt leg wound Rt TLC PLAN Sepsis Pneumonia Afib hypokalemia Severe malnutrition Septic shock acute hypoxic respiratory failure -- duonebs -- swallow eval -- on Levophed- unable to maintain BP off Levophed, needs pressor support -- IV antibiotics per ID -- continue Xarelto , monitoring HCT - ICU monitoring -- pt is DNR/DNI Problem List - Problems (1) Severe protein-calorie malnutrition (Nava: less than 60% of standard weight ) Code(s): E43 - UNSPECIFIED SEVERE PROTEIN-CALORIE MALNUTRITION (2) Acute respiratory failure Code(s): J96.00 - ACUTE RESPIRATORY FAILURE, UNSP W HYPOXIA OR HYPERCAPNIA (3) History of pulmonary embolism Code(s): Z86.711 - PERSONAL HISTORY OF PULMONARY EMBOLISM (4) MRSA (methicillin resistant Staphylococcus aureus) colonization Code(s): Z22.322 - CARRIER OR SUSPECTED CARRIER OF METHICILLIN RESIS STAPH (5) Pneumonia Code(s): J18.9 - PNEUMONIA, UNSPECIFIED ORGANISM (6) Respiratory distress Code(s): R06.03 - ACUTE RESPIRATORY DISTRESS (7) Sepsis Code(s): A41.9 - SEPSIS, UNSPECIFIED ORGANISM (8) Afib Code(s): I48.91 - UNSPECIFIED ATRIAL FIBRILLATION
[2018-05-14] MEDS: FINASTERIDE 5 MG TABLET (FP) PO SCH (10:30)
[2018-05-14] MEDS: POTASSIUM CHLORIDE ORAL LIQUID 20 MEQ/15 ML PO SCH ×2 (10:30→21:25)
[2018-05-14] MEDS: PANTOPRAZOLE SODIUM 40 MG VIAL IVPUSH SCH (10:30)
--- NOTE | 2018-05-14 11:29 | PN ---
Progress Note, Physician History of Present Illness: AWAKE, ALERT NOT VERBALLY RESPONSIVE INDICATES NO PAIN BREATHING NON LABORED ON VENTIMASK TEMPS DOWN AFEBRILE REMAINS HYPOTENSIVE ON PRESSORS BC NO GROWTH - Current Medication List Current Medications: Active Medications Albuterol/Ipratropium (Duoneb -) 1 amp NEB RQID CLYDE Amino Acids (Prosource No Carb Liquid Pkt) 30 ml PO BID@0800,1730 CLYDE Finasteride (Proscar -) 5 mg PO DAILY CLYDE Last Admin: 05/13/18 09:28 Dose: 5 mg Norepinephrine Bitartrate 8, (000 mcg/ Dextrose) 500 mls @ 18.75 mls/hr IV TITR CLYDE; Protocol Last Titration: 05/14/18 06:01 Dose: 4 mcg/min, 15 mls/hr Piperacillin Sod/Tazobactam (Sod 2.25 gm/ Dextrose) 50 mls @ 100 mls/hr IVPB Q6H-IV CLYDE; Protocol Last Admin: 05/14/18 04:32 Dose: 100 mls/hr Azithromycin (Zithromax 500mg Ivpb (Pre-Docked)) 500 mg in 250 mls @ 250 mls/ hr IVPB DAILY CLYDE Last Admin: 05/13/18 10:53 Dose: 250 mls/hr Potassium Phosphate 20 mm/ (Dextrose) 256.6667 mls @ 62.5 mls/hr IVPB ONCE ONE Stop: 05/14/18 12:51 Mirtazapine (Remeron -) 15 mg PO HS CLYDE Last Admin: 05/13/18 21:33 Dose: 15 mg Pantoprazole Sodium (Protonix Iv) 40 mg IVPUSH DAILY [facility]YDE Last Admin: 05/13/18 09:27 Dose: 40 mg Potassium Chloride (Potassium Chloride Oral Liquid) 40 meq PO BID CLYDE Last Admin: 05/13/18 21:32 Dose: 40 meq Rivaroxaban (Xarelto -) 20 mg PO DAILY@1800 CLYDE Last Admin: 05/13/18 17:02 Dose: 20 mg - Objective Vital Signs: Vital Signs Temperature 98.0 F 05/14/18 06:00 Pulse Rate 96 H 05/14/18 06:01 Respiratory Rate 14 05/14/18 06:00 Blood Pressure 132/56 L 05/14/18 06:01 O2 Sat by Pulse Oximetry (%) 98 05/14/18 08:47 Constitutional: Yes: No Distress Cardiovascular: Yes: Regular Rate and Rhythm, S1, S2 Respiratory: Yes: Diminished Gastrointestinal: Yes: Normal Bowel Sounds, Soft. No: Tenderness Edema: No Labs: CBC, BMP 05/14/18 05:30 05/14/18 05:30 INR, PTT INR 1.88 (0.83-1.09) H 05/10/18 10:00 Assessment/Plan S/P RESP FAILURE BILATERAL PL EFFUSIONS R/O PNEUMONIA/ SEPSIS AZOTEMIA- IMPROVED HX MRSA CONTINUE EMPIRIC ZOSYN D/C ZITHROMAX
--- NOTE | 2018-05-14 11:32 | CONSULT ---
Admitting History and Physical - Primary Care Physician PCP: Michelle Trinh - Admission History of Present Illness: 83 year old male with PMH , HTN, HLD, atrial fibrillation on Xarelto, PE, DVT, psoriasis, cirrhosis, BPH, failure to thrive BIBA to ED from [facility] for acute SOB Acute Hypoxic Respiratory Failure Pneumonia Septic Shock Lactic Acidosis Atrial Fibrillation h/o Pulmonary Emboli h/o Skin Ca Dementia Dec 2017 MBS- Functional swallow without aspiration. Chewed food indefinitely sec Dementia. I could not find documentation in transfer summary regarding diet order at [facility]. Selected Entries 05/13/18 05/13/18 05/13/18 06:00 10:00 18:00 Diet Tolerated Supper Temperature 98.5 F 98.8 F 98 F 05/13/18 05/13/18 05/14/18 20:46 22:00 03:44 Diet Tolerated Fair Supper 75% Temperature 99.3 F 98.4 F 05/14/18 06:00 Diet Tolerated Supper Temperature 98.0 F Laboratory Tests 05/11/18 05/14/18 05:30 05:30 WBC 10.2 H 8.5 On pureed diet/nectar thick liquid History Source: Medical Record Limitations to Obtaining History: Clinical Condition - Past Medical History SURGERY SPECIALIST: Yes: Dementia Cardiovascular: Yes: HTN Dermatology: Yes: Psoriasis - Smoking History Smoking history: Never smoked Have you smoked in the past 12 months: No Aproximately how many cigarettes per day: 0 - Alcohol/Substance Use Hx Alcohol Use: No History - Admission Reason For Visit: FEVER, RESPIRATORY DISTRESS - Diagnostics X-ray: Report Reviewed - General Mental Status: Awake and Alert, Able to Follow Commands Attention: Intact Ability to Follow Directions: Good Head/Neck Control: WFL - Hearing Hearing: Functional Speech Evaluation - Communication Primary Language: DOMINICAN Communication: Yes: Simple Responses - Speech Production Able to Make Needs Known: Yes: Mildly Impaired, Moderately Impaired Intelligibility: Yes: Mildly Impaired, Moderately Impaired - Speech Characteristics Voice Loudness: Severely Soft/Quiet, Hypophonia Voice Pitch: Yes: Normal Voice Phonatory-based Quality: Yes: Breathy, Dysphonia Nasal Resonance: Normal Articulation: Yes: Precise Rate of Speech: Intact - Language/Auditory Comprehension Observation: Able to respond to yes/no queries: Yes, Comprehends Conversational Speech: Yes - Swallow Evaluation/Bedside Assessment Current Nutritional Intake: Dysphagia Pureed, Magazine Textured Liquids Oral Secretions: Yes: WFL Dentition: Yes: Edentulous Facial Symmetry at Rest: Symmetrical Facial Symmetry on Retraction: Symmetrical Against Resistance Opening: Weak Against Resistance Closing: Weak Lingual Movement: Symmetric Lingual Movement Strgth Against Opposition: Normal Lingual Movement Characteristics: Normal Laryngeal Movement: Reduced Excursion, Labored,delay initiation, Reduced Velocity Rate of Intake: Slow/Holding (refusing most PO trials. Taking meds and applesauce only) Labial Seal: WFL A-P Transit: WFL Timing of Swallow: Delayed Coughing/Throat Clear: No (only applesauce accepted) Change in Voice: No Recommendations - Speech Evaluation, Impression/Plan Impression: Accepting only applesauce. Laryngeal swallow is quite weak with reduced onset, excursion and rate with 2-3 swallows initiated for 1/2 tsp. Stasis suspected. MBS (-) december 2017. Vocal quality is aphonic. Baseline? New onset? Vocal cord dysfunction? - Dysphagia Impressions/Plan Swallowing Skills: Impaired Dysphagia Impressions: Moderate Impairment, Refused PO Trials *Silent aspiration: cannot be R/O at bedside Recommendations: Other (If continues to refuse PO or sob/congestion re-occurs with PO intake, consider NGT/MBS next week. If Aphonia is new, consider ENT if it persists.) - Recommendations Diet Consistency: Dysphagia Pureed Medication Administration: Crushed with applesauce Liquids: Magazine Thick
[2018-05-14] MEDS: ALBUTEROL SO4 2.5/IPRATROPIUM 0.5 INH SOL 3 ML VIAL.NEB. NEB SCH ×3 (11:49→20:11)
[2018-05-14] MEDS ORDERED: PT OWN MED DRAWER 7, Y5N ONE ×2 (12:08→22:02)
[2018-05-14] MEDS: AZITHROMYCIN IVPB 500 MG/250 ML BAG IVPB SCH (12:35)
--- NOTE | 2018-05-14 13:17 | PN ---
Teaching Attending Note Name of Resident: Sid Shaw ATTENDING PHYSICIAN STATEMENT I saw and evaluated the patient. I reviewed the resident's note and discussed the case with the resident. I agree with the resident's findings and plan as documented. SUBJECTIVE: Pt seen and examined in the ICU. Remains on levophed gtt. Now on ventimask 50%. CXR showing increased congestion. OBJECTIVE: Vital Signs Period Temp Pulse Resp BP Sys/Contreras Pulse Ox Last 24 Hr 98 F-99.3 F 72-124 14-28 104-139/56-81 93-100 Intake & Output 05/11/18 05/12/18 05/13/18 05/14/18 23:59 23:59 23:59 23:59 Intake Total 1742 1834 1078 417.5 Output Total 2100 1000 900 500 Balance -358 834 178 -82.5 Weight 50.7 kg 51.256 kg 41 kg 50.8 kg Gen: tachypneic at rest Heart: RRR Lung: scattered rhonchi Abd: soft, nontender Ext: no edema CBC, BMP 05/14/18 05:30 05/14/18 05:30 Active Medications Albuterol/Ipratropium (Duoneb -) 1 amp NEB RQID [facility] Last Admin: 05/14/18 11:49 Dose: 1 amp Amino Acids (Prosource No Carb Liquid Pkt) 30 ml PO BID@0800,1730 [facility] Finasteride (Proscar -) 5 mg PO DAILY [facility] Last Admin: 05/14/18 10:30 Dose: 5 mg Norepinephrine Bitartrate 8, (000 mcg/ Dextrose) 500 mls @ 18.75 mls/hr IV TITR [facility]; Protocol Last Titration: 05/14/18 06:01 Dose: 4 mcg/min, 15 mls/hr Piperacillin Sod/Tazobactam (Sod 2.25 gm/ Dextrose) 50 mls @ 100 mls/hr IVPB Q6H-IV [facility]; Protocol Last Admin: 05/14/18 10:30 Dose: 100 mls/hr Mirtazapine (Remeron -) 15 mg PO HS [facility] Last Admin: 05/13/18 21:33 Dose: 15 mg Pantoprazole Sodium (Protonix Iv) 40 mg IVPUSH DAILY [facility] Last Admin: 05/14/18 10:30 Dose: 40 mg Potassium Chloride (Potassium Chloride Oral Liquid) 40 meq PO BID [facility] Last Admin: 05/14/18 10:30 Dose: 40 meq Rivaroxaban (Xarelto -) 20 mg PO DAILY@1800 [facility] Last Admin: 05/13/18 17:02 Dose: 20 mg ASSESSMENT AND PLAN: Acute Hypoxic Respiratory Failure Pneumonia Septic Shock Lactic Acidosis Atrial Fibrillation h/o Pulmonary Emboli h/o Skin Ca Dementia - continue antibiotics - IVF boluses as needed - taper levophed gtt to maintain MAP >65 - will need diuresis once hemodynamically stable - replete lytes - continue anticoagulation - O2 to keep SpO2 >90% - BiPAP as needed to assist in work of breathing - PO as tolerated - DVT/GI prophylaxis - continue ICU monitoring critical care time spent in reviewing chart, evaluating patient and formulating plan 35 min
[2018-05-14] MEDS: AMINO ACIDS/PROTEIN HYDROLYS 30 ML LIQUID.PKT PO SCH (18:24)
[2018-05-14] MEDS: NOREPINEPHRINE BITARTRATE 8,000 MCG in DEXTROSE 5%-WATER - 492 ML IV SCH (18:24)
[2018-05-14] MEDS: RIVAROXABAN 20 MG TABLET PO SCH (18:24)
[2018-05-14] MEDS ORDERED: ACETAMINOPHEN 325 MG TABLET (FP) PO PRN ×2 (19:29→19:33)
[2018-05-14] MEDS: MIRTAZAPINE 15 MG TABLET (FP) PO SCH (21:25)
[2018-05-15] MEDS: PIPERACILLIN/TAZOB 2.25 GM 2.25 GM in DEXTROSE 5%-WATER - 50 ML IVPB SCH ×4 (03:31→23:20)
[2018-05-15] MEDS ORDERED: PIPERACILLIN/TAZOBACTAM 2.25 GM VIAL IVPB ONE ×4 (05:30→22:59)
[2018-05-15] MEDS ORDERED: DEXTROSE 5%-WATER - 50 ML IVPB ONE ×4 (05:30→22:59)
[2018-05-15 06:04] LABS: HEMATOCRIT 21.7 % (35.4-49); HEMOGLOBIN 7.3 GM/dL (11.7-16.9); MCH 30.1 pg (25.7-33.7); MCHC 33.9 g/dl (32.0-35.9); MEAN CELL VOLUME 88.9 fl (80-96); MEAN PLT VOLUME 7.9 fl (7.5-11.1); PLATELET COUNT 227 K/MM3 (134-434); RBC 2.44 M/mm3 (4.00-5.60); RDW 17.9 % (11.9-15.9); WHITE BLOOD COUNT 5.8 K/mm3 (4.0-10.0)
[2018-05-15 06:55] LABS: ALBUMIN 1.4 g/dl (3.4-5.0); ALK PHOS 105 U/L (45-117); ANION GAP 4 MMOL/L (8-16); BILIRUBIN,TOTAL 0.5 mg/dL (0.2-1); BLOOD UREA NITROGEN 23 mg/dL (7-18); CALCIUM 7.4 mg/dL (8.5-10.1); CHLORIDE 108 mmol/L (98-107); CO2 25 mmol/L (21-32); CREATININE 0.8 mg/dL (0.55-1.3); GLUCOSE,RANDOM 92 mg/dL (74-106); MAGNESIUM 1.8 mg/dL (1.8-2.4); POTASSIUM 4.2 mmol/L (3.5-5.1); SGOT/AST 23 U/L (15-37); SGPT/ALT 21 U/L (13-61); SODIUM 137 mmol/L (136-145); TOT PROT 4.5 g/dl (6.4-8.2)
--- NOTE | 2018-05-15 07:24 | PN ---
Physical Exam: SUBJECTIVE: Patient seen and examined at bedside this morning. Patient remains on IV Norepinepherine. He was tachycardic after nebulizer treatments, and was given Metoprolol to control the heart rate. He is saturating well with nasal canula and denies cough, shortness of breath, chest pain, palpitations, abdominal pain, nausea, vomiting. OBJECTIVE: Vital Signs Period Temp Pulse Resp BP Sys/Contreras Pulse Ox Last 24 Hr 97.1 F-99.6 F 70-115 15-25 98-122/50-67 92-98 GENERAL: Awake, alert, on 100% nonrebreather mask. No acute distress. Answering basic questions by nodding head. HEAD: Normocephalic, atraumatic EYES: PERRL, EOMI, sclera anicteric, conjunctiva clear. EARS, NOSE, THROAT: Oropharynx clear without exudates. Dry mucous membranes. NECK: Supple. Right sided central venous catheter. LUNGS: Breath sounds equal, clear to auscultation bilaterally. No wheezes, and no crackles. Using accessory muscles of respiration. HEART: Irregular rate and rhythm, normal S1 and S2 without murmur, rub or gallop. ABDOMEN: Soft, nontender, not distended, normoactive bowel sounds, no guarding, no rebound, no masses. No hepatomegaly or splenomegaly. Suprapubic catheter noted, insertion site clean, dry, non draining. UPPER EXTREMITIES: 2+ radial pulses bilaterally. No peripheral edema. LOWER EXTREMITIES: 1+ dorsalis pedis pulses bilaterally. No calf tenderness. No peripheral edema. NEUROLOGICAL: Patient freely moves bilateral upper and lower extremities. SKIN: Warm, dry. Numerous excoriations noted on right lower extremity, bandaged. Laboratory Results - last 24 hr 05/14/18 05/14/18 05/15/18 05:30 20:00 05:30 WBC 8.5 5.8 RBC 2.55 L 2.44 L Hgb 7.6 L 7.3 L Hct 22.5 L 21.7 L MCV 88.3 88.9 MCH 29.9 30.1 MCHC 33.8 33.9 RDW 17.8 H 17.9 H Plt Count 249 227 MPV 7.6 7.9 Sodium Potassium Chloride Carbon Dioxide Anion Gap BUN Creatinine Creat Clearance w eGFR Random Glucose Calcium Phosphorus 2.1 L Magnesium Total Bilirubin AST ALT Alkaline Phosphatase Total Protein Albumin 05/15/18 05:30 WBC RBC Hgb Hct MCV MCH MCHC RDW Plt Count MPV Sodium 137 Potassium 4.2 Chloride 108 H Carbon Dioxide 25 Anion Gap 4 L BUN 23 H Creatinine 0.8 Creat Clearance w eGFR > 60 Random Glucose 92 Calcium 7.4 L Phosphorus 2.0 L Magnesium 1.8 Total Bilirubin 0.5 AST 23 ALT 21 Alkaline Phosphatase 105 Total Protein 4.5 L Albumin 1.4 L Active Medications Generic Name Dose Route Start Last Admin Trade Name Freq PRN Reason Stop Dose Admin Acetaminophen 650 mg 05/14/18 19:29 Tylenol - PO Q6H PRN FEVER Acetaminophen 650 mg 05/14/18 19:33 Tylenol - PO Q6H PRN PAIN SCALE 1-5 Albuterol/Ipratropium 1 amp 05/14/18 12:00 05/14/18 20:11 Duoneb - NEB 1 amp RQID [facility] Administration Amino Acids 30 ml 05/14/18 17:30 05/14/18 18:24 Prosource No Carb Liquid Pkt PO 30 ml BID@0800,1730 [facility] Administration Finasteride 5 mg 05/11/18 10:00 05/14/18 10:30 Proscar - PO 5 mg DAILY [facility] Administration Norepinephrine Bitartrate 8, 500 mls @ 18.75 mls/hr 05/10/18 15:30 05/14/18 18:24 000 mcg/ Dextrose IV Not Given TITR [facility] Protocol 5 MCG/MIN Piperacillin Sod/Tazobactam 50 mls @ 100 mls/hr 05/10/18 21:00 05/15/18 03:31 Sod 2.25 gm/ Dextrose IVPB 100 mls/hr Q6H-IV [facility] Administration Protocol Sodium Phosphate 20 mm/ Sodium 256.6667 mls @ 62.5 mls/hr 05/15/18 09:00 Chloride IVPB 05/15/18 13:06 ONCE ONE Mirtazapine 15 mg 05/11/18 22:00 05/14/18 21:25 Remeron - PO 15 mg HS [facility] Administration Pantoprazole Sodium 40 mg 05/11/18 11:30 05/14/18 10:30 Protonix Iv IVPUSH 40 mg DAILY [facility] Administration Potassium Chloride 40 meq 05/13/18 10:00 05/14/18 21:25 Potassium Chloride Oral Liquid PO 40 meq BID [facility] Administration Rivaroxaban 20 mg 05/10/18 18:00 05/14/18 18:24 Xarelto - PO 20 mg DAILY@1800 [facility] Administration ASSESSMENT/PLAN: Patient is an 83 year old male from [facility] with history of cognitive impairment , hypertension, Afib and pulmonary embolism (on Xarelto) skin cancer s/p right lower extremity excision, cirrhosis, chronic urinary retention, UTI secondary to enlarged prostate presented to ED with complaint of shortness of breath. Admitted to ICU for acute hypoxic respiratory distress. Neurological History of cognitive impairment -Currently alert, oriented X0. Able to nod to answer questions. -Mirtazapine 15mg PO daily -Escitalopram 10mg PO daily -Monitor for signs of mental status changes Pulmonary Acute hypoxic respiratory failure History of pulmonary embolism -Currently saturating well on nasal canula. Maintain oxygen saturation greater than 90% -CT chest upon admission showed significant bilateral pleural effusions. -Chest xray shows bilateral pleural effusions -Follow ABG Cardiac Afib Hypertension -Holding home Xarelto. Placing patient on Heparin drip. -Holding home antihypertensives as patient is hypotensive -Holding home Lasix -Norepinepherine drip and IV normal saline bolus to maintain MAP greater than 65. Attempt to wean as tolerated -Cardiac telemetry monitoring Gastrointestinal Positive occult blood in stool -GI recommendations (Dr. Rojas) appreciated. Patient has history of erosive gastritis noted on prior endoscopy this year. Will discontinue Xarelto, and initiate patient on Heparin drip. -NPO -Protonix 40mg IV daily Renal Acute kidney injury -likely prerenal etiology (resolved) Hyponatremia BPH, chronic urinary retention -IV fluids bolus as necessary. -Monitor suprapubic catheter output -Finasteride 5mg PO daily Infectious disease Sepsis secondary to pneumonia -Blood culture negative for growth after 5 days -Urine negative for pneumonia, legionella. -ID consult (Dr. Lott) appreciated -Empiric Zosyn 2.25grams IV Q6H (day #5) -Patient completed 5 days of Azithromycin treatment. -Aspiration precautions Hematologic, Oncologic History of skin cancer (sarcoma) Normocytic anemia -Transfuse 1 unit PRBC. Follow repeat CBC 1 hour after transfusion. -Surgery recommendations appreciated for right lower extremity wound care. -Follow reticulocyte count, iron studies, folate, B12. FEN -IV normal saline bolus. PRBC transfusion. -Hypophosphatemia -repleted. Follow CMP, replete as necessary -NPO Lines, Tubes, Drains -Right sided central venous catheter placed 05/10 -Chronic suprapubic catheter Prophylaxis -Patient is on heparin drip -Protonix 40mg IV daily Disposition: Continue care in ICU. Patient is DNR/ DNI Visit type - Emergency Visit Emergency Visit: Yes ED Registration Date: 05/10/18 Care time: The patient presented to the Emergency Department on the above date and was hospitalized for further evaluation of their emergent condition. - New Patient This patient is new to me today: No - Critical Care Critical Care patient: Yes Total Critical Care Time (in minutes): 37 Critical Care Statement: The care of this patient involved high complexity decision making to prevent further life threatening deterioration of the patient 's condition and/or to evaluate & treat vital organ system(s) failure or risk of failure. - Discharge Referral Referred to [facility] No
[2018-05-15] MEDS: ALBUTEROL SO4 2.5/IPRATROPIUM 0.5 INH SOL 3 ML VIAL.NEB. NEB SCH ×2 (07:30→11:23)
[2018-05-15] MEDS ORDERED: METOPROLOL TARTRATE 5 MG/5 ML VIAL ONE (08:12)
[2018-05-15] MEDS ORDERED: METOPROLOL TARTRATE 5 MG/5 ML VIAL IVPUSH ONE (08:12)
[2018-05-15] MEDS: AMINO ACIDS/PROTEIN HYDROLYS 30 ML LIQUID.PKT PO SCH (09:00)
[2018-05-15] MEDS ORDERED: SODIUM PHOSPHATE - 20 MM in SODIUM CHLORIDE 250 ML IVPB ONE (09:00)
[2018-05-15 09:38] LABS: RETICULOCYTES 2.21 % (0.5-1.5)
--- NOTE | 2018-05-15 10:13 | PN ---
Progress Note (short form) - Note Progress Note: pt seen/ examined in icu chart reviewed/ events noted all f/u noted/ appreciated awake. weak answers simple questions denies pain back on pressors. tachycardic-- rapid afib Vital Signs Temp 98.4 F 05/15/18 08:00 Pulse 170 H 05/15/18 08:34 Resp 18 05/15/18 08:00 BP 110/52 L 05/15/18 08:34 Pulse Ox 93 L 05/15/18 08:56 Intake & Output 05/14/18 05/14/18 05/15/18 11:59 23:59 11:59 Intake Total 417.5 940 50 Output Total 500 200 400 Balance -82.5 740 -350 Weight 111 lb 15.917 oz 110 lb Intake: IV 217.5 150 Levophed - 8,000 Mcg In 217.5 150 D5w - 492 ml @ 5 MCG/MIN 18.75 mls/hr IV TITR [facility] Rx#:[id number] IVPB 100 550 50 Oral 100 240 Output: Urine 500 200 400 Flores 500 200 400 Other: Voiding Method Indwelling Catheter Indwelling Catheter Indwelling Catheter Bowel Movement Yes Yes Yes # Bowel Movements 1 1 1 Weight Measurement Method [facility] Medications Acetaminophen (Tylenol -) 650 mg PO Q6H PRN PRN Reason: FEVER Acetaminophen (Tylenol -) 650 mg PO Q6H PRN PRN Reason: PAIN SCALE 1-5 Albuterol/Ipratropium (Duoneb -) 1 amp NEB RQID [facility] Last Admin: 05/15/18 07:30 Dose: 1 amp Amino Acids (Prosource No Carb Liquid Pkt) 30 ml PO BID@0800,1730 [facility] Last Admin: 05/14/18 18:24 Dose: 30 ml Finasteride (Proscar -) 5 mg PO DAILY [facility] Last Admin: 05/14/18 10:30 Dose: 5 mg Norepinephrine Bitartrate 8, (000 mcg/ Dextrose) 500 mls @ 18.75 mls/hr IV TITR [facility]; Protocol Last Admin: 05/14/18 18:24 Dose: Not Given Piperacillin Sod/Tazobactam (Sod 2.25 gm/ Dextrose) 50 mls @ 100 mls/hr IVPB Q6H-IV [facility]; Protocol Last Admin: 05/15/18 03:31 Dose: 100 mls/hr Sodium Phosphate 20 mm/ Sodium (Chloride) 256.6667 mls @ 62.5 mls/hr IVPB ONCE ONE Stop: 05/15/18 13:06 Mirtazapine (Remeron -) 15 mg PO HS [facility] Last Admin: 05/14/18 21:25 Dose: 15 mg Pantoprazole Sodium (Protonix Iv) 40 mg IVPUSH DAILY [facility] Last Admin: 05/14/18 10:30 Dose: 40 mg Potassium Chloride (Potassium Chloride Oral Liquid) 40 meq PO BID [facility] Last Admin: 05/14/18 21:25 Dose: 40 meq Rivaroxaban (Xarelto -) 20 mg PO DAILY@1800 [facility] Last Admin: 05/14/18 18:24 Dose: 20 mg CBC, BMP 05/15/18 05:30 05/15/18 05:30 Microbiology 05/10/18 10:00 Blood Culture - Final Blood - Peripheral Venous NO GROWTH AFTER 5 DAYS INCUBATION 05/10/18 10:00 Blood Culture - Preliminary Blood - Peripheral Venous NO GROWTH OBTAINED AFTER 96 HOURS, INCUBATION TO CONTINUE FOR 1 DAYS. 05/13/18 13:36 Legionella Antigen - Final Urine For Antigen Detection Streptococcus pneumoniae Antigen (M - Final cxr-- bilateral congestion Physical Exam . Awake/ weak. S1 S2 Irregular Lungs decreased breath sounds,ronchi+ Abd- soft, NT No edema Rt leg wound Rt TLC PLAN Sepsis Pneumonia Rapid Afib hypokalemia Severe malnutrition Septic shock acute hypoxic respiratory failure -- duonebs -- swallow eval -- on Levophed- unable to maintain BP off Levophed, needs pressor support -- IV antibiotics per ID -- continue Xarelto , monitoring HCT - ICU monitoring -- pt is DNR/DNI add metoprolol echo cardiology to evaluate will follow discussed with icu team / nursing staff. cc time approx 35 min.
[2018-05-15] MEDS: POTASSIUM CHLORIDE ORAL LIQUID 20 MEQ/15 ML PO SCH ×2 (10:28→23:20)
[2018-05-15] MEDS: FINASTERIDE 5 MG TABLET (FP) PO SCH (10:30)
[2018-05-15] MEDS: PANTOPRAZOLE SODIUM 40 MG VIAL IVPUSH SCH (10:30)
[2018-05-15] MEDS ORDERED: ALBUTEROL SO4 2.5/IPRATROPIUM 0.5 INH SOL 3 ML VIAL.NEB. NEB PRN (11:36)
--- NOTE | 2018-05-15 12:34 | PN ---
Progress Note, Physician History of Present Illness: AWAKE IN BED NOT VERBALLY RESPONSIVE INDICATES NO PAIN BREATHING NON LABORED TEMPS DOWN AFEBRILE REMAINS HYPOTENSIVE ON PRESSORS BC NO GROWTH - Current Medication List Current Medications: Active Medications Acetaminophen (Tylenol -) 650 mg PO Q6H PRN PRN Reason: FEVER Acetaminophen (Tylenol -) 650 mg PO Q6H PRN PRN Reason: PAIN SCALE 1-5 Albuterol/Ipratropium (Duoneb -) 1 amp NEB Q6H PRN PRN Reason: SHORTNESS OF BREATH Amino Acids (Prosource No Carb Liquid Pkt) 30 ml PO BID@0800,1730 [facility] Last Admin: 05/15/18 09:00 Dose: 30 ml Finasteride (Proscar -) 5 mg PO DAILY [facility] Last Admin: 05/15/18 10:30 Dose: 5 mg Norepinephrine Bitartrate 8, (000 mcg/ Dextrose) 500 mls @ 18.75 mls/hr IV TITR [facility]; Protocol Last Titration: 05/15/18 09:00 Dose: 2 mcg/min, 7.5 mls/hr Piperacillin Sod/Tazobactam (Sod 2.25 gm/ Dextrose) 50 mls @ 100 mls/hr IVPB Q6H-IV [facility]; Protocol Last Admin: 05/15/18 10:29 Dose: 100 mls/hr Sodium Phosphate 20 mm/ Sodium (Chloride) 256.6667 mls @ 62.5 mls/hr IVPB ONCE ONE Stop: 05/15/18 13:06 Metoprolol Tartrate (Lopressor -) 25 mg PO BID [facility] Mirtazapine (Remeron -) 15 mg PO HS [facility] Last Admin: 05/14/18 21:25 Dose: 15 mg Pantoprazole Sodium (Protonix Iv) 40 mg IVPUSH DAILY [facility] Last Admin: 05/15/18 10:30 Dose: 40 mg Potassium Chloride (Potassium Chloride Oral Liquid) 40 meq PO BID [facility] Last Admin: 05/15/18 10:28 Dose: 40 meq Rivaroxaban (Xarelto -) 20 mg PO DAILY@1800 [facility] Last Admin: 05/14/18 18:24 Dose: 20 mg - Objective Vital Signs: Vital Signs Temperature 98.4 F 05/15/18 08:00 Pulse Rate 107 H 05/15/18 09:00 Respiratory Rate 18 05/15/18 08:00 Blood Pressure 86/52 L 05/15/18 09:00 O2 Sat by Pulse Oximetry (%) 93 L 05/15/18 08:56 Constitutional: Yes: No Distress Eyes: Yes: Conjunctiva Clear Cardiovascular: Yes: Regular Rate and Rhythm, S1, S2 Respiratory: Yes: Diminished Gastrointestinal: Yes: Normal Bowel Sounds, Soft. No: Tenderness Edema: No Labs: CBC, BMP 05/15/18 05:30 05/15/18 05:30 INR, PTT INR 1.88 (0.83-1.09) H 05/10/18 10:00 Assessment/Plan S/P RESP FAILURE BILATERAL PL EFFUSIONS R/O PNEUMONIA/ SEPSIS AZOTEMIA- IMPROVED HX MRSA CONTINUE EMPIRIC ZOSYN
--- NOTE | 2018-05-15 12:35 | CON.CARD ---
Consult Consult Specialty:: Cardiology Referred by:: Michelle Trinh MD Reason for Consultation:: Rapid afib - History of Present Illness Chief Complaint: Worsening dyspnea History of Present Illness: 83 M, SNF resident, hypertension, Afib, subsegmental pulmonary embolism on Xarelto, skin cancer s/p right lower extremity excision, (?) cirrhosis, chronic urinary retention, UTI, and BPH admitted for worsening shortness of breath, CXR showed bibasilar infiltrates and effusions initially placed on NIPPV for hypoxic respiratory failure, now on Levophed gtt for hypotension and 50% VM. 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 Cardio/Vascular: Yes: HTN Dermatology: Yes: Psoriasis - Alcohol/Substance Use Hx Alcohol Use: No - Smoking History Smoking history: Never smoked Have you smoked in the past 12 months: No Aproximately how many cigarettes per day: 0 Home Medications - Allergies Allergies/Adverse Reactions: Allergies Allergy/AdvReac Type Severity Reaction Status Date / Time No Known Allergies Allergy Verified 05/10/18 09:54 - Home Medications Home Medications: Ambulatory Orders Ascorbic Acid [Vitamin C -] 500 mg PO DAILY 05/10/18 Cholecalciferol (Vitamin D3) [D-2000] 2,000 unit PO DAILY 05/10/18 Escitalopram Oxalate [Lexapro -] 10 mg PO DAILY 05/10/18 Finasteride 5 mg PO DAILY 05/10/18 Furosemide [Lasix -] 20 mg PO DAILY 05/10/18 Furosemide [Lasix -] 20 mg PO DAILY 05/10/18 Metoprolol Succinate 25 mg PO DAILY 05/10/18 Mirtazapine [Remeron -] 15 mg PO DAILY 05/10/18 Multivit-Minerals/Ferrous Fum [Multivitamin Liquid] 15 ml PO DAILY 05/10/18 Nifedipine ER [Procardia Xl -] 90 mg PO DAILY 05/10/18 Ondansetron Injection [Zofran Injection] 2 mg IM Q8H 05/10/18 Piperacillin Sodium/Tazobactam [Zosyn 3.375 Gram Vial] 3.375 gm IV ONCE Potassium Chloride 30 ml PO DAILY 05/10/18 Rivaroxaban [Xarelto -] 20 mg PO DAILY 05/10/18 Secukinumab [Cosentyx Pen] 150 mg SQ Q28D 05/10/18 Sucralfate [Carafate -] 1 gm PO DAILY 05/10/18 Zinc Sulfate 220 mg PO DAILY 05/10/18 Vital Signs: Vital Signs Temperature 98.4 F 05/15/18 08:00 Pulse Rate 107 H 05/15/18 09:00 Respiratory Rate 18 05/15/18 08:00 Blood Pressure 86/52 L 05/15/18 09:00 O2 Sat by Pulse Oximetry (%) 93 L 05/15/18 08:56 Constitutional: Yes: No Distress, Calm, Thin Neck: Yes: Supple Respiratory: Yes: Regular, Diminished, On Nasal O2 Gastrointestinal: Yes: Soft, Hypoactive Bowel Sounds Cardiovascular: Yes: Pulse Irregular JVD: No Carotid Bruit: No Heart Sounds: Yes: S1, S2 Edema: No - Other Data Labs, Other Data: CBC, BMP 05/15/18 05:30 05/15/18 05:30 INR, PTT INR 1.88 (0.83-1.09) H 05/10/18 10:00 Problem List - Problems (1) Acute respiratory failure Code(s): J96.00 - ACUTE RESPIRATORY FAILURE, UNSP W HYPOXIA OR HYPERCAPNIA Qualifiers: Respiratory failure complication: hypoxia Qualified Code(s): J96.01 - Acute respiratory failure with hypoxia (2) Afib Code(s): I48.91 - UNSPECIFIED ATRIAL FIBRILLATION Qualifiers: Atrial fibrillation type: persistent Qualified Code(s): I48.1 - Persistent atrial fibrillation (3) GI bleed Code(s): K92.2 - GASTROINTESTINAL HEMORRHAGE, UNSPECIFIED (4) HTN (hypertension) Code(s): I10 - ESSENTIAL (PRIMARY) HYPERTENSION Qualifiers: Hypertension type: essential hypertension Qualified Code(s): I10 - Essential (primary) hypertension (5) History of pulmonary embolism Code(s): Z86.711 - PERSONAL HISTORY OF PULMONARY EMBOLISM (6) Pneumonia Code(s): J18.9 - PNEUMONIA, UNSPECIFIED ORGANISM (7) Sepsis Code(s): A41.9 - SEPSIS, UNSPECIFIED ORGANISM Assessment/Plan 05/15/2018 Echocardiogram: Normal LVEF 50-55%, mild MR, TR, mild MG 12 mmHg 06/23/2017 Echocardiogram: Normal LV size and function EF 59%, Normal MV structure and function, Mild TR, Mild aortic valve stenosis, ELAINE 1.2 CM^2, mean gradient 10 mmHg, Normal RV size and function 1. Acute Hypoxic Respiratory Failure 2. Pneumonia 3. Septic Shock 4. Atrial Fibrillation with RVR 5. Acute on chronic diastolic heart failure 6. h/o Pulmonary Emboli 7. h/o Skin Ca 8. Dementia 9. Hyperlipidemia 10. H/o HTN 11. Anemia with occult GI bleed on Xarelto P:1. Wean pressor to maintain MAP >65, Lopressor 25 bid as hemodynamics tolerate for rate-control, diuresis once hemodynamically stable, continue antibiotics per C&S 2. Change Xarelto to Eliquis which has lower GI bleeding rates, currently on heparin gtt 3. O2 to keep SpO2 >90%, BiPAP as needed to assist in work of breathing 4. DVT/GI prophylaxis 5. Thank you for consultative opportunity
[2018-05-15 12:43] VITALS: BMI 18.8
--- NOTE | 2018-05-15 13:06 | PN ---
Teaching Attending Note Name of Resident: Sid Shaw ATTENDING PHYSICIAN STATEMENT I saw and evaluated the patient. I reviewed the resident's note and discussed the case with the resident. I agree with the resident's findings and plan as documented. SUBJECTIVE: Patient seen and examined in the ICU. Required to be placed back on levophed drip due to hypotension. Sleepy but arousable. Denies CP or SOB. Some dry cough noted. On 50% VM. CXR: increased bilateral congestion/effusion OBJECTIVE: Intake & Output 05/12/18 05/13/18 05/14/18 05/15/18 23:59 23:59 23:59 23:59 Intake Total 1834 1078 1357.5 50 Output Total 1000 900 700 400 Balance 834 178 657.5 -350 Weight 113 lb 90 lb 6.232 oz 111 lb 15.917 oz 110 lb Last Vital Signs Temp Pulse Resp BP Pulse Ox 98.4 F 107 H 18 86/52 L 93 L 05/15/18 08:00 05/15/18 09:00 05/15/18 08:00 05/15/18 09:00 05/15/18 08:56 Active Medications Acetaminophen (Tylenol -) 650 mg PO Q6H PRN PRN Reason: FEVER Acetaminophen (Tylenol -) 650 mg PO Q6H PRN PRN Reason: PAIN SCALE 1-5 Albuterol/Ipratropium (Duoneb -) 1 amp NEB Q6H PRN PRN Reason: SHORTNESS OF BREATH Amino Acids (Prosource No Carb Liquid Pkt) 30 ml PO BID@0800,1730 [facility] Last Admin: 05/15/18 09:00 Dose: 30 ml Finasteride (Proscar -) 5 mg PO DAILY [facility] Last Admin: 05/15/18 10:30 Dose: 5 mg Norepinephrine Bitartrate 8, (000 mcg/ Dextrose) 500 mls @ 18.75 mls/hr IV TITR [facility]; Protocol Last Titration: 05/15/18 09:00 Dose: 2 mcg/min, 7.5 mls/hr Piperacillin Sod/Tazobactam (Sod 2.25 gm/ Dextrose) 50 mls @ 100 mls/hr IVPB Q6H-IV [facility]; Protocol Last Admin: 05/15/18 10:29 Dose: 100 mls/hr Sodium Phosphate 20 mm/ Sodium (Chloride) 256.6667 mls @ 62.5 mls/hr IVPB ONCE ONE Stop: 05/15/18 13:06 Metoprolol Tartrate (Lopressor -) 25 mg PO BID [facility] Mirtazapine (Remeron -) 15 mg PO HS [facility] Last Admin: 05/14/18 21:25 Dose: 15 mg Pantoprazole Sodium (Protonix Iv) 40 mg IVPUSH DAILY [facility] Last Admin: 05/15/18 10:30 Dose: 40 mg Potassium Chloride (Potassium Chloride Oral Liquid) 40 meq PO BID [facility] Last Admin: 05/15/18 10:28 Dose: 40 meq Rivaroxaban (Xarelto -) 20 mg PO DAILY@1800 [facility] Last Admin: 05/14/18 18:24 Dose: 20 mg Gen: Sleepy, mildly tachypneic at rest on VM O2 Heart: RRR Lung: scattered rhonchi, no wheeze Abd: soft, nontender Ext: no edema Laboratory Results - last 24 hr 05/14/18 05/15/18 05/15/18 20:00 05:30 05:30 WBC 5.8 RBC 2.44 L Hgb 7.3 L Hct 21.7 L MCV 88.9 MCH 30.1 MCHC 33.9 RDW 17.9 H Plt Count 227 MPV 7.9 Retic Count 2.21 H Sodium 137 Potassium 4.2 Chloride 108 H Carbon Dioxide 25 Anion Gap 4 L BUN 23 H Creatinine 0.8 Creat Clearance w eGFR > 60 Random Glucose 92 Calcium 7.4 L Phosphorus 2.1 L 2.0 L Magnesium 1.8 Ferritin 1333.0 H Total Bilirubin 0.5 AST 23 ALT 21 Alkaline Phosphatase 105 Total Protein 4.5 L Albumin 1.4 L Vitamin B12 439 Serum Folate 5 ASSESSMENT AND PLAN: Acute Hypoxic Respiratory Failure Pneumonia Septic Shock Lactic Acidosis Atrial Fibrillation h/o Pulmonary Emboli h/o Skin Ca Dementia - continue antibiotics - IVF boluses as needed - taper levophed gtt to maintain MAP >65 - will need diuresis once hemodynamically stable - replete lytes - continue anticoagulation - O2 to keep SpO2 >90% - NIPPV as needed to assist in work of breathing - PO as tolerated - DVT/GI prophylaxis - Requires ICU monitoring due to pressors Dr Nicholson critical care time spent in reviewing chart, evaluating patient and formulating plan 35 min
[2018-05-15] MEDS ORDERED: HEPARIN NA (PORCINE) 5,000 UNITS/ML 1ML VIAL IVPUSH PRN ×2 (14:22)
[2018-05-15] MEDS ORDERED: SODIUM CHLORIDE 500 ML IV STA (15:18)
[2018-05-15] MEDS: HEPARIN - 25,000 UNIT in SODIUM CHLORIDE 495 ML IV SCH (16:00)
--- NOTE | 2018-05-15 16:49 | ECHO ---
Name: MARY SANTOS Exam:Adult Echocardiogram Study Date: 05/15/2018 03:56 PM Age: 83 yrs Reason For Study: SOB Height: 64 in Weight: 110 lb BSA: 1.5 m2 MMode/2D Measurements & Calculations IVSd: 1.0 cm Ao root diam: 3.1 cm LVIDd: 3.8 cm LA dimension: 2.5 cm LVIDs: 2.8 cm LVPWd: 0.96 cm LVPWs: 1.3 cm EDV(Teich): 62.2 ml ESV(Teich): 29.9 ml LVOT diam: 1.8 cm RV S Prabhakar: 13.6 cm/sec Doppler Measurements & Calculations Ao V2 max: 239.4 cm/sec LV V1 max P.0 mmHg Ao max P.0 mmHg LV V1 mean P.7 mmHg Ao V2 mean: 157.2 cm/sec LV V1 max: 87.3 cm/sec Ao mean P.8 mmHg LV V1 mean: 58.3 cm/sec Ao V2 VTI: 36.7 cm LV V1 VTI: 12.7 cm ELAINE(I,D): 0.87 cm2 ELAINE(V,D): 0.91 cm2 SV(LVOT): 31.8 ml TR max prabhakar: 281.7 cm/sec TR max P.9 mmHg PA V2 max: 129.0 cm/sec Med Peak E' Prabhakar: 11.5 cm/sec PA max P.7 mmHg Lat Peak E' Prabhakar: 13.6 cm/sec Procedure The study was technically difficult with many images being suboptimal in quality. Left Ventricle Left ventricular systolic function is grossly normal. Ejection Fraction = 50-55%. Right Ventricle The right ventricle is not well visualized. The right ventricular systolic function is grossly normal . Atria Normal left and right atrial size and function. Mitral Valve There is mild mitral annular calcification. There is no mitral valve stenosis. There is mild mitral regurgitation. Tricuspid Valve The tricuspid valve is normal in structure and function. There is mild tricuspid regurgitation. Right ventricular systolic pressure is elevated at 30-40mmHg. Aortic Valve There is moderate aortic sclerosis.;. Mild valvular aortic stenosis. Pulmonic Valve The pulmonic valve is not well seen, but is grossly normal. There is no pulmonic valvular stenosis. M ild pulmonic valvular regurgitation. Great Vessels The aortic root is normal size. Pericardium/Pleura There is no pericardial effusion. Interpretation Summary The study was technically difficult with many images being suboptimal in quality. Left ventricular systolic function is grossly normal. Ejection Fraction = 50-55%. The right ventricle is not well visualized. The right ventricular systolic function is grossly normal. There is mild mitral annular calcification. There is mild mitral regurgitation. There is mild tricuspid regurgitation. Right ventricular systolic pressure is elevated at 30-40mmHg. There is moderate aortic sclerosis.; Mild valvular aortic stenosis. There is no pericardial effusion. MD Avalos *Chepe 05/15/2018 04:48 PM
--- NOTE | 2018-05-15 17:27 | CON.GI ---
Consult Consult Specialty:: GI Referred by:: Dr Trinh - History of Present Illness History of Present Illness: Patient seen in the ICU.83 y/o male with history of AFIB, PE, DVT on xarelto was admitted with Acute Respiratory failure secondary to pneumonia complicated by sepsis. He was admitted in the iCU. He on pressors until yesterday. I was asked to see patient because of progressive anemia while on Xarelto, guaiac positive stool and today was noted to have a large dark bowel movement. He was started on Heparin and Xarelto discontinued as suggested. He underwent EGD 04/2018 and was noted to have a 5cm hiatal hernia and erosive gastritis, there were no ulcers nor avms. He denies abdominal pain, nausea, vomiting,and rectal bleeding. Patient is a poor informant. 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: Yes: Dementia Cardio/Vascular: Yes: HTN Dermatology: Yes: Psoriasis - Alcohol/Substance Use Hx Alcohol Use: No - Smoking History Smoking history: Never smoked Have you smoked in the past 12 months: No Aproximately how many cigarettes per day: 0 Home Medications - Allergies Allergies/Adverse Reactions: Allergies Allergy/AdvReac Type Severity Reaction Status Date / Time No Known Allergies Allergy Verified 05/10/18 09:54 - Home Medications Home Medications: Ambulatory Orders Ascorbic Acid [Vitamin C -] 500 mg PO DAILY 05/10/18 Cholecalciferol (Vitamin D3) [D-2000] 2,000 unit PO DAILY 05/10/18 Escitalopram Oxalate [Lexapro -] 10 mg PO DAILY 05/10/18 Finasteride 5 mg PO DAILY 05/10/18 Furosemide [Lasix -] 20 mg PO DAILY 05/10/18 Furosemide [Lasix -] 20 mg PO DAILY 05/10/18 Metoprolol Succinate 25 mg PO DAILY 05/10/18 Mirtazapine [Remeron -] 15 mg PO DAILY 05/10/18 Multivit-Minerals/Ferrous Fum [Multivitamin Liquid] 15 ml PO DAILY 05/10/18 Nifedipine ER [Procardia Xl -] 90 mg PO DAILY 05/10/18 Ondansetron Injection [Zofran Injection] 2 mg IM Q8H 05/10/18 Piperacillin Sodium/Tazobactam [Zosyn 3.375 Gram Vial] 3.375 gm IV ONCE Potassium Chloride 30 ml PO DAILY 05/10/18 Rivaroxaban [Xarelto -] 20 mg PO DAILY 05/10/18 Secukinumab [Cosentyx Pen] 150 mg SQ Q28D 05/10/18 Sucralfate [Carafate -] 1 gm PO DAILY 05/10/18 Zinc Sulfate 220 mg PO DAILY 05/10/18 Physical Exam-GI Vital Signs: Vital Signs Temperature 98.4 F 05/15/18 16:00 Pulse Rate 127 H 05/15/18 16:00 Respiratory Rate 20 05/15/18 16:00 Blood Pressure 101/52 L 05/15/18 16:00 O2 Sat by Pulse Oximetry (%) 93 L 05/15/18 08:56 Constitutional: Yes: Cachectic Eyes: Yes: Conjunctiva Clear HENT: Yes: Normocephalic Neck: Yes: Trachea Midline Cardiovascular: Yes: Regular Rate and Rhythm Respiratory: Yes: CTA Bilaterally ...Palpate: Yes: Soft. No: Firm/Rigid, Guarding, Hepatomegaly, Mass, Pulsatile Mass, Splenomegaly Labs: CBC, BMP 05/15/18 05:30 05/15/18 05:30 INR, PTT INR 1.88 (0.83-1.09) H 05/10/18 10:00 Problem List - Problems (1) GI bleed Assessment/Plan: obscure gi bleeding while on Xarelto R> keep hgb greater than 8 advance diet continue PPI prophylaxsis consider Coumadin use Code(s): K92.2 - GASTROINTESTINAL HEMORRHAGE, UNSPECIFIED
[2018-05-15 23:08] LABS: HEMATOCRIT 25.3 % (35.4-49); HEMOGLOBIN 8.6 GM/dL (11.7-16.9); MCH 30.4 pg (25.7-33.7); MEAN CELL VOLUME 89.6 fl (80-96); MEAN PLT VOLUME 7.7 fl (7.5-11.1); PLATELET COUNT 276 K/MM3 (134-434); RBC 2.83 M/mm3 (4.00-5.60); WHITE BLOOD COUNT 5.9 K/mm3 (4.0-10.0)
[2018-05-15] MEDS: MIRTAZAPINE 15 MG TABLET (FP) PO SCH (23:21)
[2018-05-15] MEDS: METOPROLOL TARTRATE 25 MG TABLET (FP) PO SCH (23:21)
[2018-05-16] MEDS: NOREPINEPHRINE BITARTRATE 8,000 MCG in DEXTROSE 5%-WATER - 492 ML IV SCH ×2 (04:07→17:14)
[2018-05-16] MEDS ORDERED: PIPERACILLIN/TAZOBACTAM 2.25 GM VIAL IVPB ONE ×4 (04:08→21:11)
[2018-05-16] MEDS ORDERED: DEXTROSE 5%-WATER - 50 ML IVPB ONE ×4 (04:09→21:11)
[2018-05-16] MEDS: PIPERACILLIN/TAZOB 2.25 GM 2.25 GM in DEXTROSE 5%-WATER - 50 ML IVPB SCH ×4 (04:11→21:24)
[2018-05-16 06:04] LABS: HEMATOCRIT 24.6 % (35.4-49); HEMOGLOBIN 8.4 GM/dL (11.7-16.9); MCH 30.2 pg (25.7-33.7); MCHC 34.1 g/dl (32.0-35.9); MEAN CELL VOLUME 88.6 fl (80-96); MEAN PLT VOLUME 7.8 fl (7.5-11.1); PLATELET COUNT 286 K/MM3 (134-434); RBC 2.78 M/mm3 (4.00-5.60); RDW 17.4 % (11.9-15.9); WHITE BLOOD COUNT 5.7 K/mm3 (4.0-10.0)
[2018-05-16 06:36] LABS: ALBUMIN 1.4 g/dl (3.4-5.0); ALK PHOS 101 U/L (45-117); ANION GAP 5 MMOL/L (8-16); BILIRUBIN,TOTAL 0.6 mg/dL (0.2-1); BLOOD UREA NITROGEN 21 mg/dL (7-18); CALCIUM 7.2 mg/dL (8.5-10.1); CHLORIDE 114 mmol/L (98-107); CO2 24 mmol/L (21-32); CREATININE 0.8 mg/dL (0.55-1.3); GLUCOSE,RANDOM 79 mg/dL (74-106); MAGNESIUM 1.7 mg/dL (1.8-2.4); PHOSPHOROUS 2.3 mg/dL (2.5-4.9); POTASSIUM 4.1 mmol/L (3.5-5.1); SGOT/AST 19 U/L (15-37); SGPT/ALT 17 U/L (13-61); SODIUM 144 mmol/L (136-145); TOT PROT 4.7 g/dl (6.4-8.2)
[2018-05-16] MEDS: AMINO ACIDS/PROTEIN HYDROLYS 30 ML LIQUID.PKT PO SCH ×3 (09:00→17:17)
--- NOTE | 2018-05-16 09:06 | PN ---
Progress Note (short form) - Note Progress Note: SUBJECTIVE: Patient seen and examined in the ICU. -off pressors > 24hrs -no distress -no further ? blood bm, crit stable OBJECTIVE: Vital Signs Temp 98.7 F 05/16/18 06:02 Pulse 100 H 05/16/18 08:24 Resp 24 H 05/16/18 06:02 BP 110/54 L 05/16/18 06:02 Pulse Ox 93 L 05/16/18 08:24 Intake & Output 05/15/18 05/15/18 05/16/18 11:59 23:59 11:59 Intake Total 50 492 Output Total 400 200 400 Balance -350 -200 92 Weight 49.895 kg 49.895 kg Intake: IV 212 Heparin - 25,000 Unit In 212 Normal Saline - 495 ml @ 800 UNIT/HR 16 mls/hr IV TITR [facility] Rx#:[id number] IVPB 50 100 Oral 180 Output: Urine 400 200 400 Flores 400 200 400 Other: Voiding Method Indwelling Catheter Indwelling Catheter Indwelling Catheter Bowel Movement Yes Yes No # Bowel Movements 1 1 1 Body Mass Index (BMI) 18.8 Weight Measurement Method Built in Bedscale Built in Bedscale Active Medications Acetaminophen (Tylenol -) 650 mg PO Q6H PRN PRN Reason: FEVER Acetaminophen (Tylenol -) 650 mg PO Q6H PRN PRN Reason: PAIN SCALE 1-5 Albuterol/Ipratropium (Duoneb -) 1 amp NEB Q6H PRN PRN Reason: SHORTNESS OF BREATH Amino Acids (Prosource No Carb Liquid Pkt) 30 ml PO BID@0800,1730 [facility] Last Admin: 05/15/18 09:00 Dose: 30 ml Finasteride (Proscar -) 5 mg PO DAILY [facility] Last Admin: 05/15/18 10:30 Dose: 5 mg Heparin Sodium (Porcine) (Heparin -) 1,000 unit IVPUSH PRN PRN PRN Reason: Heparin Last Admin: 05/16/18 01:18 Dose: 1,000 unit Heparin Sodium (Porcine) (Heparin -) 5,000 unit IVPUSH PRN PRN PRN Reason: Heparin Norepinephrine Bitartrate 8, (000 mcg/ Dextrose) 500 mls @ 18.75 mls/hr IV TITR [facility]; Protocol Last Admin: 05/16/18 04:07 Dose: Not Given Piperacillin Sod/Tazobactam (Sod 2.25 gm/ Dextrose) 50 mls @ 100 mls/hr IVPB Q6H-IV [facility]; Protocol Last Admin: 05/16/18 04:11 Dose: 100 mls/hr Heparin Sodium (Porcine) 25, (000 unit/ Sodium Chloride) 500 mls @ 16 mls/hr IV TITR [facility]; Protocol Last Admin: 05/15/18 16:00 Dose: 800 unit/hr, 16 mls/hr Metoprolol Tartrate (Lopressor -) 25 mg PO BID [facility] Last Admin: 05/15/18 23:21 Dose: Not Given Mirtazapine (Remeron -) 15 mg PO HS [facility] Last Admin: 05/15/18 23:21 Dose: 15 mg Pantoprazole Sodium (Protonix Iv) 40 mg IVPUSH DAILY [facility] Last Admin: 05/15/18 10:30 Dose: 40 mg Potassium Chloride (Potassium Chloride Oral Liquid) 40 meq PO BID [facility] Last Admin: 05/15/18 23:20 Dose: 40 meq Gen: awake, alert, without distress Heart: RRR Lung: scattered rhonchi, no wheezes, no accessory muscle uses Abd: soft, nontender Ext: no edema, dry flaky skin CBCD WBC 5.7 K/mm3 (4.0-10.0) 05/16/18 05:00 RBC 2.78 M/mm3 (4.00-5.60) L 05/16/18 05:00 Hgb 8.4 GM/dL (11.7-16.9) L 05/16/18 05:00 Hct 24.6 % (35.4-49) L 05/16/18 05:00 MCV 88.6 fl (80-96) 05/16/18 05:00 MCHC 34.1 g/dl (32.0-35.9) 05/16/18 05:00 RDW 17.4 % (11.9-15.9) H 05/16/18 05:00 Plt Count 286 K/MM3 (134-434) 05/16/18 05:00 MPV 7.8 fl (7.5-11.1) 05/16/18 05:00 CMP Sodium 144 mmol/L (136-145) 05/16/18 05:00 Potassium 4.1 mmol/L (3.5-5.1) 05/16/18 05:00 Chloride 114 mmol/L (98-107) H 05/16/18 05:00 Carbon Dioxide 24 mmol/L (21-32) 05/16/18 05:00 Anion Gap 5 MMOL/L (8-16) L 05/16/18 05:00 BUN 21 mg/dL (7-18) H 05/16/18 05:00 Creatinine 0.8 mg/dL (0.55-1.3) 05/16/18 05:00 Creat Clearance w eGFR > 60 (>60) 05/16/18 05:00 Calcium 7.2 mg/dL (8.5-10.1) L 05/16/18 05:00 Total Bilirubin 0.6 mg/dL (0.2-1) 05/16/18 05:00 AST 19 U/L (15-37) 05/16/18 05:00 ALT 17 U/L (13-61) 05/16/18 05:00 Alkaline Phosphatase 101 U/L (45-117) 05/16/18 05:00 Total Protein 4.7 g/dl (6.4-8.2) L 05/16/18 05:00 Albumin 1.4 g/dl (3.4-5.0) L 05/16/18 05:00 ASSESSMENT AND PLAN: Acute Hypoxic Respiratory Failure Pneumonia Septic Shock Lactic Acidosis Atrial Fibrillation h/o Pulmonary Emboli h/o Skin Ca Dementia - continue antibiotics - IVF boluses as needed - replete lytes - continue anticoagulation, low threshold to D/c if further ? of bleeding - O2 to keep SpO2 >90% - PO as tolerated - DVT/GI prophylaxis - [id number]
--- NOTE | 2018-05-16 10:25 | PN ---
Progress Note, Physician History of Present Illness: AWAKE IN BED MORE RESPONSIVE INDICATES NO PAIN BREATHING NON LABORED TEMPS DOWN AFEBRILE OFF PRESSORS BC NO GROWTH - Current Medication List Current Medications: Active Medications Acetaminophen (Tylenol -) 650 mg PO Q6H PRN PRN Reason: FEVER Acetaminophen (Tylenol -) 650 mg PO Q6H PRN PRN Reason: PAIN SCALE 1-5 Albuterol/Ipratropium (Duoneb -) 1 amp NEB Q6H PRN PRN Reason: SHORTNESS OF BREATH Amino Acids (Prosource No Carb Liquid Pkt) 30 ml PO BID@0800,1730 [facility] Last Admin: 05/15/18 09:00 Dose: 30 ml Finasteride (Proscar -) 5 mg PO DAILY [facility] Last Admin: 05/15/18 10:30 Dose: 5 mg Heparin Sodium (Porcine) (Heparin -) 1,000 unit IVPUSH PRN PRN PRN Reason: Heparin Last Admin: 05/16/18 01:18 Dose: 1,000 unit Heparin Sodium (Porcine) (Heparin -) 5,000 unit IVPUSH PRN PRN PRN Reason: Heparin Norepinephrine Bitartrate 8, (000 mcg/ Dextrose) 500 mls @ 18.75 mls/hr IV TITR [facility]; Protocol Last Admin: 05/16/18 04:07 Dose: Not Given Piperacillin Sod/Tazobactam (Sod 2.25 gm/ Dextrose) 50 mls @ 100 mls/hr IVPB Q6H-IV [facility]; Protocol Last Admin: 05/16/18 04:11 Dose: 100 mls/hr Heparin Sodium (Porcine) 25, (000 unit/ Sodium Chloride) 500 mls @ 16 mls/hr IV TITR [facility]; Protocol Last Admin: 05/15/18 16:00 Dose: 800 unit/hr, 16 mls/hr Metoprolol Tartrate (Lopressor -) 25 mg PO BID [facility] Last Admin: 05/15/18 23:21 Dose: Not Given Mirtazapine (Remeron -) 15 mg PO HS [facility] Last Admin: 05/15/18 23:21 Dose: 15 mg Pantoprazole Sodium (Protonix Iv) 40 mg IVPUSH DAILY [facility] Last Admin: 05/15/18 10:30 Dose: 40 mg Potassium Chloride (Potassium Chloride Oral Liquid) 40 meq PO BID [facility] Last Admin: 05/15/18 23:20 Dose: 40 meq - Objective Vital Signs: Vital Signs Temperature 98.7 F 05/16/18 06:02 Pulse Rate 100 H 05/16/18 08:24 Respiratory Rate 24 H 05/16/18 06:02 Blood Pressure 110/54 L 05/16/18 06:02 O2 Sat by Pulse Oximetry (%) 93 L 05/16/18 08:24 Constitutional: Yes: No Distress Eyes: Yes: Conjunctiva Clear Cardiovascular: Yes: Regular Rate and Rhythm, S1, S2 Respiratory: Yes: CTA Bilaterally Gastrointestinal: Yes: Normal Bowel Sounds, Soft. No: Tenderness Genitourinary: Yes: Other (+ SUPRAPUBIC TUBE) Extremities: Yes: Other (DRY ULCER R LE) Labs: CBC, BMP 05/16/18 05:00 05/16/18 05:00 INR, PTT INR 1.88 (0.83-1.09) H 05/10/18 10:00 Assessment/Plan S/P RESP FAILURE BILATERAL PL EFFUSIONS R/O PNEUMONIA/ SEPSIS AZOTEMIA- RESOLVED HX MRSA CONTINUE EMPIRIC ZOSYN
--- NOTE | 2018-05-16 10:37 | PN ---
Progress Note (short form) - Note Progress Note: off pressor support since yesterday Off BIPAP on heparin gtt for rapid afib coughing on drinking Ensure poor appetite weak, frail looking Vital Signs - 24 hr 05/15/18 05/15/18 05/15/18 12:00 14:00 16:00 Temperature 98.2 F 98.2 F 98.4 F Pulse Rate 105 H 125 H 127 H Respiratory 18 20 20 Rate Blood Pressure 92/62 92/62 101/52 L O2 Sat by Pulse Oximetry (%) 05/15/18 05/15/18 05/15/18 20:00 21:00 22:00 Temperature 98.5 F Pulse Rate 112 H 116 H 107 H Respiratory 21 H 21 H 22 H Rate Blood Pressure 103/50 L 119/63 115/66 O2 Sat by Pulse 94 L Oximetry (%) 05/15/18 05/16/18 05/16/18 23:00 00:00 00:09 Temperature Pulse Rate 112 H 117 H Respiratory 27 H 20 Rate Blood Pressure 115/68 118/71 O2 Sat by Pulse 95 Oximetry (%) 05/16/18 05/16/18 05/16/18 01:00 01:02 02:20 Temperature 98.6 F Pulse Rate 112 H 111 H Respiratory 22 H 20 29 H Rate Blood Pressure 118/71 113/53 L O2 Sat by Pulse 95 Oximetry (%) 05/16/18 05/16/18 05/16/18 03:00 04:00 05:00 Temperature Pulse Rate 113 H 104 H Respiratory 28 H 22 H Rate Blood Pressure 104/56 L 109/58 L O2 Sat by Pulse 96 96 Oximetry (%) 05/16/18 05/16/18 05/16/18 06:02 08:24 10:37 Temperature 98.7 F Pulse Rate 100 H 100 H Respiratory 24 H Rate Blood Pressure 110/54 L O2 Sat by Pulse 93 L 93 L Oximetry (%) Intake & Output 05/13/18 05/14/18 05/15/18 05/16/18 23:59 23:59 23:59 23:59 Intake Total 1078 1357.5 50 492 Output Total 900 700 600 400 Balance 178 657.5 -550 92 Weight 90 lb 6.232 oz 111 lb 15.917 oz 110 lb 110 lb Laboratory Results - last 24 hr 0305/15/18 05/15/18 12:30 14:35 22:50 WBC 5.9 RBC 2.83 L Hgb 8.6 L Hct 25.3 L D MCV 89.6 MCH 30.4 MCHC 34.0 RDW 17.0 H Plt Count 276 D MPV 7.7 PTT (Actin FS) Sodium Potassium Chloride Carbon Dioxide Anion Gap BUN Creatinine Creat Clearance w eGFR Random Glucose Calcium Phosphorus Magnesium Total Bilirubin AST ALT Alkaline Phosphatase Total Protein Albumin Stool Occult Blood Positive Blood Type B POSITIVE Antibody Screen Negative Crossmatch See Detail 05/15/18 05/16/18 05/16/18 22:50 05:00 05:00 WBC 5.7 RBC 2.78 L Hgb 8.4 L Hct 24.6 L MCV 88.6 MCH 30.2 MCHC 34.1 RDW 17.4 H Plt Count 286 MPV 7.8 PTT (Actin FS) 43.4 H Sodium 144 Potassium 4.1 Chloride 114 H Carbon Dioxide 24 Anion Gap 5 L BUN 21 H Creatinine 0.8 Creat Clearance w eGFR > 60 Random Glucose 79 Calcium 7.2 L Phosphorus 2.3 L Magnesium 1.7 L Total Bilirubin 0.6 AST 19 ALT 17 Alkaline Phosphatase 101 Total Protein 4.7 L Albumin 1.4 L Stool Occult Blood Blood Type Antibody Screen Crossmatch 05/16/18 05:00 WBC RBC Hgb Hct MCV MCH MCHC RDW Plt Count MPV PTT (Actin FS) 51.6 H Sodium Potassium Chloride Carbon Dioxide Anion Gap BUN Creatinine Creat Clearance w eGFR Random Glucose Calcium Phosphorus Magnesium Total Bilirubin AST ALT Alkaline Phosphatase Total Protein Albumin Stool Occult Blood Blood Type Antibody Screen Crossmatch Current Medications Generic Name Dose Route Start Last Admin Trade Name Freq PRN Reason Stop Dose Admin Acetaminophen 650 mg 05/14/18 19:29 Tylenol - PO Q6H PRN FEVER Acetaminophen 650 mg 05/14/18 19:33 Tylenol - PO Q6H PRN PAIN SCALE 1-5 Albuterol/Ipratropium 1 amp 05/15/18 11:36 Duoneb - NEB Q6H PRN SHORTNESS OF BREATH Amino Acids 30 ml 05/14/18 17:30 05/15/18 09:00 Prosource No Carb Liquid Pkt PO 30 ml BID@0800,1730 [facility] Administration Finasteride 5 mg 05/11/18 10:00 05/15/18 10:30 Proscar - PO 5 mg DAILY [facility] Administration Heparin Sodium (Porcine) 1,000 unit 05/15/18 14:22 05/16/18 01:18 Heparin - IVPUSH 1,000 unit PRN PRN Administration Heparin Heparin Sodium (Porcine) 5,000 unit 05/15/18 14:22 Heparin - IVPUSH PRN PRN Heparin Norepinephrine Bitartrate 8, 500 mls @ 18.75 mls/hr 05/10/18 15:30 05/16/18 04:07 000 mcg/ Dextrose IV Not Given TITR [facility] Protocol 5 MCG/MIN Piperacillin Sod/Tazobactam 50 mls @ 100 mls/hr 05/10/18 21:00 05/16/18 04:11 Sod 2.25 gm/ Dextrose IVPB 100 mls/hr Q6H-IV [facility] Administration Protocol Heparin Sodium (Porcine) 25, 500 mls @ 16 mls/hr 05/15/18 14:30 05/15/18 16: 00 000 unit/ Sodium Chloride IV 800 unit/hr TITR [facility] 16 mls/hr Administration Protocol 800 UNIT/HR Metoprolol Tartrate 25 mg 05/15/18 22:00 05/15/18 23:21 Lopressor - PO Not Given BID [facility] Mirtazapine 15 mg 05/11/18 22:00 05/15/18 23:21 Remeron - PO 15 mg HS [facility] Administration Pantoprazole Sodium 40 mg 05/11/18 11:30 05/15/18 10:30 Protonix Iv IVPUSH 40 mg DAILY [facility] Administration Potassium Chloride 40 meq 05/13/18 10:00 05/15/18 23:20 Potassium Chloride Oral Liquid PO 40 meq BID [facility] Administration Microbiology 05/10/18 10:00 Blood Culture - Final Blood - Peripheral Venous NO GROWTH AFTER 5 DAYS INCUBATION 05/10/18 10:00 Blood Culture - Final Blood - Peripheral Venous NO GROWTH AFTER 5 DAYS INCUBATION S1 S2 Irregular Lungs decreased breath sounds Abd- soft, NT No edema Rt leg wound Rt TLC PLAN Sepsis Pneumonia Afib- s/p rapid afib Severe malnutrition Septic shock h/o gi bleed acute hypoxic respiratory failure -- duonebs -- cultures negative -- IV antibiotics per ID -- Xarelto dc , on heparin gtt now -- Cardiology eval appreciated-- will change to Eliquis - once HCT stable - ok to transfer to telemetry Problem List - Problems (1) Severe protein-calorie malnutrition (Nava: less than 60% of standard weight ) Code(s): E43 - UNSPECIFIED SEVERE PROTEIN-CALORIE MALNUTRITION (2) Acute respiratory failure Code(s): J96.00 - ACUTE RESPIRATORY FAILURE, UNSP W HYPOXIA OR HYPERCAPNIA (3) History of pulmonary embolism Code(s): Z86.711 - PERSONAL HISTORY OF PULMONARY EMBOLISM (4) MRSA (methicillin resistant Staphylococcus aureus) colonization Code(s): Z22.322 - CARRIER OR SUSPECTED CARRIER OF METHICILLIN RESIS STAPH (5) Pneumonia Code(s): J18.9 - PNEUMONIA, UNSPECIFIED ORGANISM (6) Respiratory distress Code(s): R06.03 - ACUTE RESPIRATORY DISTRESS (7) Sepsis Code(s): A41.9 - SEPSIS, UNSPECIFIED ORGANISM (8) Afib Code(s): I48.91 - UNSPECIFIED ATRIAL FIBRILLATION
[2018-05-16] MEDS ORDERED: MAGNESIUM SULF 50% (8.12 MEQ/2 ML-1 GM VIAL) IVPB ONE (10:50)
[2018-05-16] MEDS ORDERED: MAGNESIUM SULFATE IN WATER 2 GM/50 ML IVPB IVPB ONE (10:57)
[2018-05-16] MEDS: METOPROLOL TARTRATE 25 MG TABLET (FP) PO SCH ×2 (10:59→21:24)
[2018-05-16] MEDS: PANTOPRAZOLE SODIUM 40 MG VIAL IVPUSH SCH (11:00)
[2018-05-16] MEDS: POTASSIUM CHLORIDE ORAL LIQUID 20 MEQ/15 ML PO SCH ×2 (11:00→21:24)
[2018-05-16] MEDS: FINASTERIDE 5 MG TABLET (FP) PO SCH (11:04)
[2018-05-16] MEDS: HEPARIN - 25,000 UNIT in SODIUM CHLORIDE 495 ML IV SCH (15:00)
[2018-05-16] MEDS: MIRTAZAPINE 15 MG TABLET (FP) PO SCH (21:25)
[2018-05-17] MEDS ORDERED: PIPERACILLIN/TAZOBACTAM 2.25 GM VIAL IVPB ONE (03:22)
[2018-05-17] MEDS ORDERED: DEXTROSE 5%-WATER - 50 ML IVPB ONE (03:22)
[2018-05-17] MEDS: PIPERACILLIN/TAZOB 2.25 GM 2.25 GM in DEXTROSE 5%-WATER - 50 ML IVPB SCH (03:56)
[2018-05-17 06:12] LABS: BASO % 0.1 % (0-2.0); HEMATOCRIT 27.9 % (35.4-49); HEMOGLOBIN 9.7 GM/dL (11.7-16.9); LYMPH % 2.5 % (8-40); MCH 30.9 pg (25.7-33.7); MCHC 34.7 g/dl (32.0-35.9); MEAN PLT VOLUME 7.9 fl (7.5-11.1); MONO % 1.6 % (3.8-10.2); NEUT % 95.8 % (42.8-82.8); PLATELET COUNT 390 K/MM3 (134-434); RBC 3.13 M/mm3 (4.00-5.60); RDW 17.4 % (11.9-15.9); WHITE BLOOD COUNT 6.3 K/mm3 (4.0-10.0)
[2018-05-17 06:31] LABS: ALBUMIN 1.5 g/dl (3.4-5.0); ALK PHOS 103 U/L (45-117); ANION GAP 6 MMOL/L (8-16); BILIRUBIN,TOTAL 0.5 mg/dL (0.2-1); BLOOD UREA NITROGEN 22 mg/dL (7-18); CALCIUM 7.3 mg/dL (8.5-10.1); CHLORIDE 114 mmol/L (98-107); CO2 21 mmol/L (21-32); CREATININE 0.8 mg/dL (0.55-1.3); GLUCOSE,RANDOM 118 mg/dL (74-106); POTASSIUM 4.6 mmol/L (3.5-5.1); SGOT/AST 17 U/L (15-37); SGPT/ALT 18 U/L (13-61); SODIUM 142 mmol/L (136-145); TOT PROT 4.9 g/dl (6.4-8.2)
--- NOTE | 2018-05-17 07:12 | PN ---
Progress Note (short form) - Note Progress Note: Called to bedside by RN for AMS, apnea. On arrival, pt with agonal breathing and then apnea. At 0626 pt was noted to be apneic, unconscious, non-responsive, without palpable pulse and without corneal or brain stem reflexes. Pt is DNR, no resuscitation effort was made. Census and organ donor was to be notified by RN. Pt HCP was notified and is enroute to hospital. Pt attending to be notified in later am. Garth ACNP [id number]
[2018-05-17 07:14] VITALS: BP 122/54; PULSE 108; TEMP 98.6
== END 2018-05-17 06:50 | disposition expired | DRG 871 ==
LOC: JER 09:38 → JERBED 12:15 → JICU 13:59
PROVIDERS: ADMIT Internal Medicine; ATTEND Internal Medicine
PROC: 05HM33Z Insertion of Infusion Device into Right Internal Jugular Vein, Percutaneous Approach (ICD-10-PCS; principal; 2018-05-10)
PROC: B513ZZA Fluoroscopy of Right Jugular Veins, Guidance (ICD-10-PCS; 2018-05-10)
PROC: 5A09457 Assistance with Respiratory Ventilation, 24-96 Consecutive Hours, Continuous Positive Airway Pressure (ICD-10-PCS; 2018-05-13)
DX: A41.9 Sepsis, unspecified organism (principal); J96.01 Acute respiratory failure with hypoxia; J18.9 Pneumonia, unspecified organism; R65.21 Severe sepsis with septic shock; E43 Unspecified severe protein-calorie malnutrition; Z68.1 Body mass index [BMI] 19.9 or less, adult; N39.0 Urinary tract infection, site not specified; N17.9 Acute kidney failure, unspecified; E87.1 Hypo-osmolality and hyponatremia; E87.2 Acidosis; J90 Pleural effusion, not elsewhere classified; R64 Cachexia; K92.2 Gastrointestinal hemorrhage, unspecified; I95.9 Hypotension, unspecified; I48.91 Unspecified atrial fibrillation; E78.5 Hyperlipidemia, unspecified; I10 Essential (primary) hypertension; N40.0 Benign prostatic hyperplasia without lower urinary tract symptoms; I34.0 Nonrheumatic mitral (valve) insufficiency; R62.7 Adult failure to thrive; L40.9 Psoriasis, unspecified; Z86.711 Personal history of pulmonary embolism; R33.9 Retention of urine, unspecified; E87.5 Hyperkalemia; Z22.322 Carrier or suspected carrier of Methicillin resistant Staphylococcus aureus; Z85.828 Personal history of other malignant neoplasm of skin; F03.90 Unspecified dementia, unspecified severity, without behavioral disturbance, psychotic disturbance, mood disturbance, and anxiety; E87.6 Hypokalemia; E83.42 Hypomagnesemia; E83.39 Other disorders of phosphorus metabolism; R00.0 Tachycardia, unspecified; Z66 Do not resuscitate; D64.9 Anemia, unspecified
CPT/HCPCS: 36415; 36430; 36511; 36600; 71045-TC-FY; 71250-TC; 80048; 80053; 81003; 81015; 82272; 82607; 82728; 82746; 82803; 83540; 83550; 83605; 83735; 84100; 84466; 84484; 85025; 85027; 85044; 85610; 85730; 86850; 86900; 86901; 86922; 87040; 87086; 87804; 87899; 93005; 93010; 93306-TC; 94640; 94660; 99284-25; G0480; J0131; J1644; J7030; P9038; P9058